=== PATIENT | male | born 1990 | race Caucasian/White ===

== ENCOUNTER 2024-07-03 09:16 | Inpatient (IN) ==
--- NOTE | 2024-07-03 09:39 | Emergency Department Note ---
History of Present Illness General Chief complaint: Foot Injury/Pain Stated complaint: WOUND ON FOOT, SWELLING, INFECTION Time Seen by Provider: 07/03/24 09:37 History of Present Illness Maximum Pain Intensity: 1 This is a 34-year-old male that presents to the emergency department via private vehicle with complaints of "wound on foot, swelling, infection". The patient notes that he has had a wound on the right first toe for several months now and has been following with the wound clinic in [place]. The patient states that however as of recent there has been some increased redness and swelling now in the foot and ankle region. He notes minimal pain, currently 10/09. He notes he is currently on oral clindamycin but finishing the course and today is the last day of the antibiotic. No fevers. There has been some drainage from the wound. Home Medications Medication Instructions Recorded Confirmed Type buprenorphine HCl 8 mg sublingual 16 mg sublingual DAILY 07/03/24 07/03/24 History tablet losartan 25 mg tablet 50 mg PO DAILY 07/03/24 07/03/24 History Allergies Allergy/AdvReac Type Severity Reaction Status Date / Time amoxicillin Allergy Unknown Unverified 07/03/24 12:24 Penicillins Allergy Anaphylaxis Unverified 07/03/24 13:12 Past Med/Surg History Problem List (Updated 07/03/24 @ 23:13 by Andrews Lazaro PA-C) Cellulitis of right foot (Acute) Tobacco use History of substance abuse Cellulitis of left foot Skin ulcer of right great toe (Acute) Medical History Prediabetes Anxiety HTN (hypertension) Surgical History No pertinent past surgical history Family History (Updated 07/03/24 @ 13:09 by Nakia Ludwig PA-C) Mother Breast cancer Social History Smoking Status: Current every day smoker Tobacco Type: Cigarettes Cigarettes Per Day: 1 PPD; Hx Alcohol Use: No Hx Substance Use: No Preferred Language: Slovak Communication Ability: Effective 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 Beliefs That Will Affect Care: None Current Living Situation: Significant Other Feels Safe at Home: Yes Safety Concerns: Feels Safe At This Time Assistive Devices: Glasses Assistive Devices Comment: Glasses but doesn't wear Review of Systems A total of 10 systems reviewed and were otherwise negative Physical Exam Vital Signs Vital Signs - 24 hr 07/03/24 09:29 07/03/24 11:38 Temperature 36.5 C Temperature Source Skin Pulse Rate 98 H Pulse Rate [Finger] 91 H Respiratory Rate 20 18 Respiratory Effort / Characteristics Non-Labored Spontaneous Respiratory Depth Normal Respiratory Pattern Regular Blood Pressure 172/95 H Blood Pressure [Right Arm] 160/89 H Blood Pressure Mean 120 Blood Pressure Mean [Right Arm] 112 Blood Pressure Position [Right Arm] Semi-fowlers Pulse Oximetry 100 98 Oxygen Delivery Method Room Air Room Air Sepsis Recent Fever Within 48 Hours No Sepsis New/Unexplained Change in Mental Status N/A Sepsis Action Taken by Nursing No Action Required VITAL SIGNS - Vital signs and nursing notes were reviewed. Stable and afebrile. GENERAL -34-year-old male appearing his stated age who is in no acute distress. Communicates well with provider and answers questions appropriately. SKIN -the flexor crease at the IP joint of the right first toe, plantar aspect does have a large ulceration approximate 1.5/2 cm in diameter that does track into the deeper soft tissues. There is a yellowish purulence noted. No crepitus. There is then erythema tracking into the toe, right foot, right ankle into the distal right lower leg. HEAD - NC/AT. EYES - Sclera anicteric. NECK - No nuchal rigidity. LUNGS - CTA CARDIAC - RRR EXTREMITIES - No clubbing or peripheral cyanosis. No pretibial edema present. Skin as above. No tenderness to palpation of the right first toe or foot. Capillary refill of all toes of the right foot within normal limits. Right dorsalis pedis pulse within normal limits. No crepitus. +5/5 strength noted in UE/LE bilaterally. NEUROLOGIC -sensory intact to light touch throughout the right lower extremity without deficit. PSYCH -alert, oriented and pleasant on exam. Course Administered Medications Buprenorphine HCl (Buprenorphine Hcl 8 Mg Subl) 8 mg SL BID [facility] Stop: 08/02/24 20:59 Last Admin: 07/03/24 20:59 Dose: 8 mg Documented By: ZULMA Aztreonam 2,000 mg/ Dextrose 100 mls @ 100 mls/hr IV Q8H [facility] Stop: 07/10/24 19:59 Last Infusion: 07/03/24 22:05 Dose: Infused Documented By: Admin: 07/03/24 20:50 Dose: 100 mls/hr Documented By: ZULMA Vancomycin HCl 2,750 mg/ (Sodium Chloride) 555 mls @ 200 mls/hr IV 2200 ONE Stop: 07/04/24 00:46 Last Admin: 07/03/24 22:12 Dose: 200 mls/hr Documented By: ZULMA Metronidazole (Metronidazole 500 Mg Tab) 500 mg PO BID [facility]; Protocol Stop: 07/10/24 20:59 Last Admin: 07/03/24 20:51 Dose: 500 mg Documented By: ZULMA Nicotine (Nicotine 21 Mg/24 Hr Tdsy) 1 patch TD QAM [facility] Stop: 08/02/24 13:59 Last Admin: 07/03/24 14:29 Dose: 1 patch Documented By: MMF Discontinued Medications Gadobutrol (Gadobutrol 65ml Vial) 14 ml IV ONCE ONE Stop: 07/03/24 18:17 Last Admin: 07/03/24 18:17 Dose: 14 ml Documented By: TERRY Daptomycin 700 mg/ Syringe 14 mls @ 7 mls/min IV NOW STA; Protocol Stop: 07/03/24 11:11 Last Admin: 07/03/24 11:40 Dose: 7 mls/min Documented By: REMA Sodium Chloride (Nss) 1,000 mls @ 999 mls/hr IV .Q1H1M ONE Stop: 07/03/24 15:34 Last Admin: 07/03/24 15:07 Dose: 999 mls/hr Documented By: REMA Losartan Potassium (Losartan Potassium 50 Mg Tab) 50 mg PO ONE STA Stop: 07/03/24 14:11 Last Admin: 07/03/24 20:04 Dose: 50 mg Documented By: ZULMA Medical Decision Making Laboratory Data 07/03/24 11:03 07/03/24 11:03 Lab Results 07/03/24 07/03/24 07/03/24 Range/Units 11:03 11:52 12:47 WBC 12.93 H (4.8-10.8) K/ul RBC 4.88 (4.70-6.10) M/uL Hgb 14.7 (14.0-18.0) g/dl Hct 43.4 (42.0-52.0) % MCV 88.9 (80.0-100.0) fL MCH 30.1 (25.0-34.0) pg MCHC 33.9 (32.0-36.0) g/dL RDW Std Deviation 39.0 (36.4-46.3) fL RDW Coeff of Joaquin 12.1 (11.5-14.5) % Plt Count 300 (130-400) K/uL MPV 9.9 (9.4-12.4) fL Immature Gran % (Auto) 0.3 % Neut % (Auto) 71.5 % Lymph % (Auto) 20.6 % [place] % (Auto) 5.1 % Eos % (Auto) 2.3 % Baso % (Auto) 0.2 % Neut # (Auto) 9.23 H (1.40-6.50) K/uL Lymph # (Auto) 2.67 (1.20-3.40) K/uL [place] # (Auto) 0.66 H (0.11-0.59) K/uL Eos # (Auto) 0.30 (0.00-0.50) K/uL Baso # (Auto) 0.03 (0.00-0.20) K/uL Immature Gran # (Auto) 0.04 (0.01-0.20) K/uL ESR 52 H (0-15) mm/hr Sodium 137 (136-145) mmol/L Potassium 4.2 (3.5-5.1) mmol/L Chloride 100 (98-107) mmol/L Carbon Dioxide 30 (21-32) mmol/L Anion Gap 7 (3-11) BUN 13 (6-23) mg/dl Creatinine 0.69 (0.6-1.4) mg/dl Est Cr Clr Drug Dosing 249.0 ml/min eGFR 123.77 BUN/Creatinine Ratio 18.8 (10-20) Glucose 99 (70-99(Fasting)) mg/dl Lactate 1.1 (0.4-2.0) mmol/L Calcium 9.9 (8.6-10.3) mg/dl Total Bilirubin 0.4 (0.2-1.0) mg/dl AST 16 (13-39) U/L ALT 18 (7-52) U/L Alkaline Phosphatase 66 (34-104) U/L C-Reactive Protein 0.79 H (0-0.5) mg/dl Total Protein 8.3 (6.0-8.3) gm/dl Albumin 4.6 (3.4-5.0) gm/dl Globulin 3.7 (2.5-4.0) gm/dl Albumin/Globulin Ratio 1.2 (0.9-2) Procalcitonin Cancelled Cancelled Cancelled Imaging Data Radiologist's Impression: Foot X-Ray 07/03/24 10:15 XR foot RT min 3V routine CLINICAL HISTORY: Right foot infection. COMPARISON: None FINDINGS: A wound along the plantar aspect of the base of the right first distal phalanx is noted. Right first toe soft tissue swelling is present. No clear bony erosion is identified. There are no fractures within the right foot. There are mild degenerative changes within the right first metatarsophalangeal joint. Plantar heel spur is incidentally noted. IMPRESSION: Right first toe plantar wound. No bony erosion to suggest acute osteomyelitis by radiography. If indicated, MRI could be obtained for further evaluation. ACT 112: Negative or not required by law. Electronically signed by: Romario Orr M.D. 07/03/2024 10:46 AM MDM Narrative Patient was seen and evaluated as above in room B06. Review was performed of triage nursing notes and vital signs. I did review the patient's outpatient PCP visit as dated 06/24/2024. Patient presents to us today for evaluation of progressing erythema and edema of the right foot, ankle and right lower leg originating from a wound to the plantar aspect of the right first toe. There is a large ulcer on the plantar aspect of the right first toe. IV access with established. Labs were drawn. I did obtain a wound culture of the right first toe as there is some draining purulence. This was sent for culture. Blood culture also obtained. IV antibiotics ordered. Initially had ordered vancomycin however him working with our clinical pharmacist, noting patient's adjusted body weight and vancomycin dosing daptomycin is felt to be preferred therefore ordered. This was based on patient's ideal body weight. Dosing was confirmed with pharmacist. Additionally, laboratory studies here reveal leukocytosis 12.93. No anemia. No emergent metabolic disturbance. Elevation of the ESR and CRP noted. Procalcitonin was ordered but unfortunately was not able to be resulted. Right foot x-ray obtained and reviewed and per my crepitation no fracture. The patient does require hospitalization noting the progressive infection despite oral antibiotics. Case discussed with the hospitalist service. Please refer to further documentation regarding his stay. After evaluation by the medicine team and pending admission I noted the patient's blood pressure to be 83/65 as documented. I immediately went to bedside. He is resting comfortably. I suspect this value is an accurate therefore did have blood pressure rechecked and patient was not hypotensive. GCS: 15 In the evaluation and treatment of this patient the following differential diagnoses were entertained: Cellulitis, abscess, necrotizing fasciitis, osteomyelitis, sepsis, bacteremia, among others Impression & Plan Cellulitis of right foot, Skin ulcer of right great toe Discharge Plan Visit Data Chief Complaint: Foot Injury/Pain Stated Complaint: WOUND ON FOOT, SWELLING, INFECTION ED Provider: Adam Valdovinos ED Midlevel Provider: Andrews Lazaro Discharge Problem: Cellulitis of right foot, Skin ulcer of right great toe Patient Disposition: Admitted As Inpatient Condition: Good Discharge Instructions Interventions: ED Discharge Assessment Last Done: 07/03/24 17:27
--- NOTE | 2024-07-03 10:47 | XRay Report ---
XR foot RT min 3V routine CLINICAL HISTORY: Right foot infection. COMPARISON: None FINDINGS: A wound along the plantar aspect of the base of the right first distal phalanx is noted. R ight first toe soft tissue swelling is present. No clear bony erosion is identified. There are no fra ctures within the right foot. There are mild degenerative changes within the right first metatarsopha langeal joint. Plantar heel spur is incidentally noted. IMPRESSION: Right first toe plantar wound. No bony erosion to suggest acute osteomyelitis by radiogra phy. If indicated, MRI could be obtained for further evaluation. ACT 112: Negative or not required by law. Electronically signed by: Romario Orr M.D. 07/03/2024 10:46 AM
[2024-07-03] MEDS ORDERED: VANCOMYCIN HCL 2,750 MG in SODIUM CHLORIDE 0.9% 500 ML IV ONE (11:06)
[2024-07-03] MEDS ORDERED: VANCOMYCIN CONSULT ACTIVE PRN ×2 (11:06→19:18)
[2024-07-03 11:34] LABS: Albumin Globulin Ratio 1.2 (0.9-2); Albumin Level 4.6 gm/dl (3.4-5.0); BUN Creatinine Ratio 18.8 (10-20); Bilirubin,Total 0.4 mg/dl (0.2-1.0); C Reactive Protein 0.79 mg/dl (0-0.5); Calcium 9.9 mg/dl (8.6-10.3); Globulin 3.7 gm/dl (2.5-4.0); Potassium 4.2 mmol/L (3.5-5.1); Total Protein 8.3 gm/dl (6.0-8.3)
[2024-07-03] MEDS: DAPTOmycin 700 MG in SYRINGE 0 ML IV STA (11:40)
[2024-07-03 12:42] LABS: Basophils # (auto) 0.03 K/uL (0.00-0.20); Basophils % (auto) 0.2 %; Eosinophils % (auto) 2.3 %; Hematocrit (blood only) 43.4 % (42.0-52.0); Hemoglobin 14.7 g/dl (14.0-18.0); Immature Granulocytes # (auto) 0.04 K/uL (0.01-0.20); Immature Granulocytes % (auto) 0.3 %; Lymphocytes # (auto) 2.67 K/uL (1.20-3.40); Lymphocytes % (auto) 20.6 %; Mean Corpuscular Hemoglobin 30.1 pg (25.0-34.0); Mean Corpuscular Hgb Conc 33.9 g/dL (32.0-36.0); Mean Corpuscular Volume 88.9 fL (80.0-100.0); Mean Platelet Volume 9.9 fL (9.4-12.4); Monocytes # (auto) 0.66 K/uL (0.11-0.59); Monocytes % (auto) 5.1 %; Neutrophils # (auto) 9.23 K/uL (1.40-6.50); Neutrophils % (auto) 71.5 %; Platelet Count 300 K/uL (130-400); RDW Coefficient of Variation 12.1 % (11.5-14.5); Red Blood Count 4.88 M/uL (4.70-6.10); White Blood Count 12.93 K/ul (4.8-10.8)
--- NOTE | 2024-07-03 13:15 | History & Physical Report ---
Date of Service July 03, 2024 Assessment & Plan (1) Skin ulcer of right great toe: (2) Cellulitis of right foot: Plan: Patient is a 34 year old male with PMH HTN, anxiety, obesity, prediabetes, tobacco use presented to ER with c/o worsening right foot and leg redness and edema with right great toe ulcer. Wound present for months and following outpatient wound and getting debridement. 06/24/2024 started on clindamycin secondary to foot swelling and redness Today in ER afebrile, BP 172/95, P: 98, R: 20, 100% on room air. WBC: 12.9, ESR: 52 Right foot x-ray: No bony erosion noted In ER given daptomycin Concern for underlying osteomyelitis Obtain MRI R foot/toe to r/o osteomyelitis Wound culture pending Blood culture pending Given patients history PCN allergy with anaphylaxis will start aztreonam, vancomycin and flagyl Pain control with Tylenol for now. Will avoid narcotic pain medications with h/o substance abuse in past Wound nurse consult May need to consider ID consult CBC, BMP in am (3) Anxiety: Plan: Previously Prescribed clonidine to use on a as needed basis for anxiety. Patient reports is never taken Recently prescribed Wellbutrin however has not started taking yet (4) HTN (hypertension): Plan: In ER hypertensive with BP 160/89. Patient typically takes his medication in afternoon when he awakes as he works third shift Give patient home losartan now and continue daily (5) Prediabetes: Plan: A1c: 5.9 on 12/30/23 Not on medications Diabetic diet Follow a.m. 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 Plan Attending Addendum: Case reviewed with the advanced practitioner. I have personally performed a history and physical examination on the patient. I have reviewed the advanced practitioner's documentation on the date of service referenced in note, and I agree with, and take responsibility for the plan of care. please refer to her notes for full details patient seen and examined, records reviewed by myself as well on exam, patient seen resting in bed, comfortable pain on the left foot and lower leg manageable no other symptoms VS noted and reviewed oriented x 3 , not in distress, speaks in sentences with no effort nor accessory muscle use normal rate, regular rhythm, no murmurs clear breath sounds bilaterally non distended, soft, nontender R big toe dressing in place: no bleeding or discharge (+) moderate erythema, mild edema of the foot and lower leg no neuro deficits all labs, imaging noted and reviewed ASSESSMENT AND PLAN> INFECTED ULCER, R BIG TOE WITH OSTEOMYELITIS Foot MRI: Ulcer subjacent to the first IP joint. Acute osteomyelitis of the first distal phalanx and reactive osteitis in the first proximal phalanx. ff up cultures Vancomycin + Aztreonam + Flagyl (anaphylaxis with penicillin) ID consulted Podiatry consulted other diagnoses and plan of care as per advanced practitioner's notes Germán Burr MD History of Present Illness Chief Complaint: Right foot redness and edema Primary Care Provider: Nichole Gonzales PA-C Patient is a 34 year old male with PMH HTN, anxiety, obesity, prediabetes, tobacco use presented to ER with c/o right foot redness and edema. History obtained from patient and outpatient chart review. Patient reports had bilateral great toe callus for months and has been following with [facility] wound care and having areas debrided. Patient reports right great toe had small opening which has progressed to ulcer. Per outpatient chart review last seen by wound care on 06/17/2024 and had wounds debrided. X-ray at time was without evidence of osteomyelitis and MRI of right foot was ordered to rule out osteomyelitis however has not been completed yet. Patient seen PCPs office 06/24/2024 for redness to right toe and foot and was started on clindamycin 300 mg 3 times daily x 10 days. Patient reports that this week has had increased edema to right foot and right leg along with redness extending to right calf. Reports area is tender with walking. Works third shift and states is on his feet often. He thinks a couple of weeks ago may have had a fever but denies any fever or chills symptoms the past week. Denies diaphoresis, N/V/D/C, FOSTER, dizziness, syncope, CP, SOB, palpitations, cough, sore throat, rhinorrhea, abdominal pain, paresthesias, weakness, extremity edema, rashes, urinary symptoms. Allergies Allergy/AdvReac Type Severity Reaction Status Date / Time amoxicillin Allergy Unknown Unverified 07/03/24 12:24 Penicillins Allergy Anaphylaxis Unverified 07/03/24 13:12 Home Medications Medication Instructions Recorded Confirmed Type buprenorphine HCl 8 mg sublingual 16 mg sublingual DAILY 07/03/24 07/03/24 History tablet losartan 25 mg tablet 50 mg PO DAILY 07/03/24 07/03/24 History Past Med/Surg History Problem List (Updated 07/03/24 @ 20:59 by Nakia Ludwig PA-C) Cellulitis of right foot Tobacco use History of substance abuse Cellulitis of left foot Skin ulcer of right great toe Medical History (Updated 07/03/24 @ 20:59 by Nakia Ludwig PA-C) Prediabetes Anxiety HTN (hypertension) Surgical History (Updated 07/03/24 @ 13:11 by Nakia Ludwig PA-C) No pertinent past surgical history Family History (Updated 07/03/24 @ 13:09 by Nakia Ludwig PA-C) Mother Breast cancer Social History (Updated 07/03/24 @ 14:29 by Nakia Ludwig PA-C) Smoking Status: Current every day smoker Tobacco Type: Cigarettes Cigarettes Per Day: 1 PPD; Hx Alcohol Use: No Hx Substance Use: No Preferred Language: Greek Communication Ability: Effective 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 Beliefs That Will Affect Care: None Current Living Situation: Significant Other Feels Safe at Home: Yes Safety Concerns: Feels Safe At This Time Assistive Devices: Glasses Assistive Devices Comment: Glasses but doesn't wear Review of Systems Review of Systems: All systems reviewed & are unremarkable except as noted in HPI & below Physical Exam Physical Exam: General: no distress, WDWN Head: normocephalic, atraumatic Eyes: conjunctiva non-injected, anicteric ENT: normal inspection external ears, nose, mucous membranes moist Neck: supple, trachea midline Lungs: clear, no respiratory distress, no wheezing/rhonchi/rales CV: RRR, no murmur Abd: normal BS, soft, non-tender Ext: no cyanosis, no calf tenderness; RLE: +edema and erythema to lower leg and foot, great right toe plantar surface with deep ulcer Neuro: A&O x 3, no focal deficits noted, normal affect Skin: warm, dry Results & Data Results & Data Vital Signs (Past 12 Hours) Vital Signs Temp Pulse Pulse Resp BP BP Pulse Ox 07/03/24 11:38 91 H 18 160/89 H 98 07/03/24 09:29 36.5 C 98 H 20 172/95 H 100 O2 Del Method 07/03/24 11:38 Room Air 07/03/24 09:29 Room Air Laboratory Results Short CBC 07/03/24 Range/Units 11:03 WBC 12.93 H (4.8-10.8) K/ul Hgb 14.7 (14.0-18.0) g/dl Hct 43.4 (42.0-52.0) % Plt Count 300 (130-400) K/uL BMP 07/03/24 11:03 Sodium 137 Potassium 4.2 Chloride 100 Carbon Dioxide 30 BUN 13 Creatinine 0.69 Glucose 99 Calcium 9.9 Liver Function 07/03/24 Range/Units 11:03 Total Bilirubin 0.4 (0.2-1.0) mg/dl AST 16 (13-39) U/L ALT 18 (7-52) U/L Alkaline Phosphatase 66 (34-104) U/L Albumin 4.6 (3.4-5.0) gm/dl Diagnostic Findings Foot X-Ray 07/03/24 10:15 XR foot RT min 3V routine CLINICAL HISTORY: Right foot infection. COMPARISON: None FINDINGS: A wound along the plantar aspect of the base of the right first distal phalanx is noted. Right first toe soft tissue swelling is present. No clear bony erosion is identified. There are no fractures within the right foot. There are mild degenerative changes within the right first metatarsophalangeal joint. Plantar heel spur is incidentally noted. IMPRESSION: Right first toe plantar wound. No bony erosion to suggest acute osteomyelitis by radiography. If indicated, MRI could be obtained for further evaluation. ACT 112: Negative or not required by law. Electronically signed by: Romario Orr M.D. 07/03/2024 10:46 AM
[2024-07-03] MEDS: NICOTINE 21 MG/24 HR TDSY TD SCH (14:29)
[2024-07-03] MEDS: SODIUM CHLORIDE 0.9% 1,000 ML IV ONE (15:07)
[2024-07-03] MEDS: GADOBUTROL 65ML VIAL IV ONE (18:17)
[2024-07-03] MEDS ORDERED: ACETAMINOPHEN 325 MG TAB PO PRN (19:18)
[2024-07-03] MEDS ORDERED: POLYETHYLENE (MIRALAX) 17 GM PACK PO PRN (19:18)
[2024-07-03] MEDS ORDERED: ONDANSETRON INJ 2 MG/ML 2 ML VIAL IV PRN (19:18)
[2024-07-03] MEDS: LOSARTAN POTASSIUM 50 MG TAB PO STA (20:04)
[2024-07-03] MEDS: AZTREONAM 2,000 MG in DEXTROSE 5% MINI-B 100 ML IV SCH (20:50)
[2024-07-03] MEDS: metroNIDAZOLE 500 MG TAB PO SCH (20:51)
[2024-07-03] MEDS: buprenorphine HCL 8 MG SUBL SL SCH (20:59)
--- NOTE | 2024-07-03 21:17 | Magnetic Resonance Report ---
Exam(s): MRI RIGHT FOOT W/WO Contrast IV Amt: 14mL Gadavist given existing IV EXAM: MR Right Lower Extremity Without and With Intravenous Contrast, Foot CLINICAL HISTORY: Reason for exam: Right great toe ulcer r/o osteomyelitis. TECHNIQUE: Multiplanar magnetic resonance images of the right foot without and with intravenous contrast. CONTRAST: Patient received 14mL Gadavist given existing IV of IV contrast COMPARISON: No relevant prior studies available. FINDINGS: Ulcer subjacent to the first IP joint. Abnormal marrow signal within the first proximal and distal phalanges. Marrow fat is preserved within the proximal phalanx but suppressed in the distal phalanx. 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 Soft tissue cellulitis. No soft tissue abscess. IMPRESSION: 1. Ulcer subjacent to the first IP joint. Acute osteomyelitis of the first distal phalanx and reactive osteitis in the first proximal phalanx. Electronically signed by: Blaine Paredes MD 07/03/24 21:16 PM
[2024-07-03] MEDS: VANCOMYCIN HCL 2,750 MG in SODIUM CHLORIDE 0.9% 500 ML IV ONE (22:12)
[2024-07-03] MEDS: SODIUM CHLORIDE 0.9% 1,000 ML IV SCH (23:05)
--- OUTSIDE RECORDS SUMMARY | 2024-07-04 04:04 | External Medical Summary | Summary of Care ---
Author Name Unknown Organization [facility] Address [address] [place] [address] Phone [phone] Care Team Providers Care Fitter/Welder Name Role Phone Nichole Gonzales PA-C Primary Care Provider [phone] Reason for Visit * Reason Comments Follow Up Follow Up: B/L Great toes Encounter Details Date Type Department Care Team ([facility] st Contact Info) Description 05/27/2024 8:40 AM EDT Office Visit Wound Care, [facility] [address] [place] [address] Vinita Bee, [facility] [address] [place] [address] Pressure injury of toe of left foot, stage 1*; Pressure injury of toe of right foot, stage 1 Allergies Active Allergy Reactions Criticality Noted Date Comments Naloxone Edema Other,Itching,Rash High 04/14/2021 Penicillins Anaphylaxis High 02/02/2013 anaphylactic Shellfish-Derived Products Edema airway High 04/14/2021 All seafood documented as of this encounter (statuses as of 05/27/2024) Medications Medication Sig Dispensed Refills Start Date End Date Status Buprenorphine HCl 8 MG Sublingual Tablet Sublingual (Subutex) TAKE 1 SUBLINGUAL TABLET TWICE DAILY 03/28/2021 Active Albuterol Sulfate HFA 108 (90 Base) MCG/ACT Inhalation Aerosol SolutionIndications: Asthma, unspecified asthma severity, unspecified whether complicated, unspecified whether persistent INHALE 2 PUFFS BY MOUTH IN THE MORNING, AT NOON, IN THE EVENING, AND BEFORE BEDTIME. 54 g 3 06/08/2022 Active Triamcinolone Acetonide 0.1 % External Cream (Aristocort)Indicati ons:Atopic dermatitis, unspecified type Apply topically to affected area 2 times a day. To affected area. 45 g 2 12/12/2023 Active Lactulose 10 GM/15ML Oral Solution (Constulose)Indicati ons:Constipation, unspecified constipation type TAKE 30 ML BY MOUTH IN THE MORNING AND 30 ML BEFORE BEDTIME. 946 mL 1 04/28/2024 Active Losartan Potassium 25 MG Oral Tablet (Cozaar)Indications: Hypertension goal BP (blood pressure) < 140/90 TAKE 2 TABLETS BY MOUTH EVERY MORNING 180 Tablet 3 05/13/2024 Active Polyethylene Glycol 3350 17 GM/SCOOP Oral Powder (MiraLax)Indications :Constipation, unspecified constipation type Take 17 g by mouth in the morning and 17 g before bedtime. Dissolve one heaping tablespoon in 8 ounces of water or juice.. 850 g 5 05/13/2024 Active Albuterol Sulfate (2.5 MG/3ML) 0.083% Inhalation Nebulization Solution (Proventil) Inhale 1 Vial via nebulizer every 6 hours as needed for Wheezing. 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 with unspecified severity 12/12/2023 Callus 12/12/2023 Hypertension goal BP (blood pressure) < 140/90 0 05/22/2023 Mild intermittent asthma without complication Advance directive discussed with patient 021 History of anxiety disorder 02/23/2021 Class 1 obesity without seri ous comorbidity with body mass index (BMI) of 34.0 to 34.9 in adult 02/07/2021 Overview: Per Obesity protocol Spinal stenosis of lumbar region with radiculopa thy 02/02/2013 documented as of this encounter (statuses as of 05/27/2024) Resolved Problems Problem Noted Date Diagnosed Date Resolved Date Food insecurity 11/12/2022 05/14/2024 Overview: Per [facility] Protocol Dental infection 03/18/2022 05/22/2023 Morbid obesity due to excess calories 02/23/2021 12/12/2023 Uncomplicated opioid dependence 02/23/2021 03/26/2022 PTSD (post-traumatic stress disorder) 02/23/2021 03/26/2022 documented as of this encounter (statuses as of 05/27/2024) Social History Tobacco Use Types Packs/Day Years Used Date Smoking Tobacco: Every Day Cigarettes Smokeless Tobacco: Never Alcohol Use Standard Drinks/Week Comments No 0 (1 standard drink = 0.6 oz pur e alcohol) PHQ-2 Answer Date Recorded PHQ Adult Total Score 2 10/09/2022 Hunger Vital Sign Answer Date Recorded Within the past 12 months, y ou worried that your food would run out before you got the money to buy more. Sometimes true Within the past 12 months, t he food you bought just didn't last and you didn't have money to get more. Sometimes true Sex and Gender Information Value Date Recorded Sex Assigned at Male 10/09/2022 3:45 PM EST Gender Identity Male 10/09/2022 3:45 PM EST Sexual Orientation Straight 10/09/2022 3: 45 PM EST Job Start Date Occupation Industry Not on file Not on file Not on file documented as of this encounter Progress Notes * Vinita Bee, DPM - 05/27/2024 9:07 AM EDT Followup Examination Patient: Wesley Moise Allergies: Naloxone, Penicillins, and Shellfish-derived products Chief Complaint: Chief Complaint Patient presents with Follow Up Follow Up: B/L Great toes History of Present Illness Wesley Moise is a 34 year old male here today for Corina great toes. Pt reports he recently got a new job that he will start on Saturday. He is still working at the [employer] (walking and carrying). He reports more pain over the right great toe. Denies any consitutional symptoms. Constitutional There were no vitals taken for this visit. Appearance: NAD Musculoskeletal Normal general appearance No joint swelling/tenderness Normal gait Walks without assistance Vascular Dorsalis Pedis Palpable Posterior Tibial Palpable Respiratory Respiratory effort within normal limits Integumentary warm & dry Abnormalities: See wound assessment Psychiatric Judgment/insight intact mood/affect within normal limits Neurological No focal weakness Past Medical History No past medical history on file. Past Surgical History No past surgical history on file. Social History Social History Socioeconomic History Marital status: Single Spouse name: Not on file Number of children: Not on file Years of education: Not on file Highest education level: Not on file Occupational History Not on file Tobacco Use Smoking status: Every Day Current packs/day: 1.00 Types: Cigarettes Smokeless tobacco: Never Vaping Use Vaping status: Every Day Substances: THC Substance and Sexual Activity Alcohol use: No Drug use: Yes Types: Marijuana Comment: medical marijuana Sexual activity: Not on file Other Topics Concern Not on file Social History Narrative Not on file Social Determinants of Health Financial Resource Strain: Low Risk (04/27/2024) Financial Resource Strain Do you have any trouble paying for your medications, or do you think you might in the future? (Adult - for ages 18 years and over): No Does your family have trouble paying for medicine? (Household - for ages 0-17 years): Not on file Food Insecurity: No Food Insecurity (04/27/2024) Food Insecurity Do you need food for this week? (Adult - for ages 18 years and over): No Are you able to get enough food for your family? (Household - for ages 0-17 years): Not on file Does your family need food this week? (Household - for ages 0-17 years): Not on file Do you always have enough food for your family? (Household - for ages 0-17 years): Not on file Transportation Needs: No Transportation Needs (04/27/2024) Transportation Needs Do you have trouble getting a ride to medical visits or work? (Adult - for ages 18 years and over):Not on file Does your family have a hard time getting a ride to doctors visits? (Household - for ages 0-17 years): Not on file Has lack of transportation kept you from medical appointments, meetings, work, or from getting things needed for daily living? Check all that apply. (Adult - for ages 18 years and over): No Do you (or your family) have trouble finding or paying for a ride (transportation)? (Household - for ages 0-17 years): Not on file Social Connections: Socially Integrated (04/27/2024) Social Connections How often do you feel lonely or isolated from those around you? (Adult - for ages 18 years and over): Rarely Housing Stability: Low Risk (04/27/2024) Housing Stability Do you currently live in a long-term or have no steady place to sleep at night? (Adult - for ages 18 years and over): No Do you think you are at risk of becoming homeless? (Adult - for ages 18 years and over): Not on file Does your family worry about paying for your home or becoming homeless? (Household - for ages 0-17 years): Not on file Are you homeless or worried that you might be in the future? (Adult - for ages 18 years and over): No Are you (or your family) homeless or worried that you might be in the future? (Household - for ages0-17 years): Not on file Current Meds Current Outpatient Medications Medication Sig Dispense Refill Buprenorphine HCl 8 MG Sublingual Tablet Sublingual (Subutex) TAKE 1 SUBLINGUAL TABLET TWICE DAILY Albuterol Sulfate HFA 108 (90 Base) MCG/ACT Inhalation Aerosol Solution INHALE 2 PUFFS BY MOUTH IN THE MORNING, AT NOON, IN THE EVENING, AND BEFORE BEDTIME. 54 g 3 Triamcinolone Acetonide 0.1 % External Cream (Aristocort) Apply topically to affected area 2 times a day. To affected area. 45 g 2 Lactulose 10 GM/15ML Oral Solution (Constulose) TAKE 30 ML BY MOUTH IN THE MORNING AND 30 ML BEFOREBEDTIME. 946 mL 1 Losartan Potassium 25 MG Oral Tablet (Cozaar) TAKE 2 TABLETS BY MOUTH EVERY MORNING 180 Tablet 3 Polyethylene Glycol 3350 17 GM/SCOOP Oral Powder (MiraLax) Take 17 g by mouth in the morning and 17g before bedtime. Dissolve one heaping tablespoon in 8 ounces of water or juice.. 850 g 5 Albuterol Sulfate (2.5 MG/3ML) 0.083% Inhalation Nebulization Solution (Proventil) Inhale 1 Vial via nebulizer every 6 hours as needed for Wheezing. 360 mL 11 No current facility-administered medications for this visit. WOUND ASSESSMENT Wound Grade/Stage/Type (if changed): Wound/Ulcer Etiology: Pressure Ulcer: I Alteration in Skin Integrity Anterior;Right Toe (Active) Alteration in Skin Integrity Anterior;Left Toe (Active) Wound Profile Wound Type: Pressure Ulcer (17) Wound Location: Corina hallux Pressure Wound: Stage I Diabetic Wound/Lower Extremity: N/A All Others: N/A Wound/Ulcer Debridement Time Out: Correct Patient, Correct Site/Side/Position, Correct Procedure, Complete/Current Consent and Safety Issue Review Wound location: RIGHT and LEFT hallux Character of Wound/Ulcer Pre Debridement: New Lidocaine: none Indication for Debridement: Abnormal Wound Edge, Abnormal Wound Base, and Slough, Exudate Instrument Used: Scalpel Tissue and/or Material Removed: Callus, Skin, and Abnormal Edge Bleeding: Minimal Bleeding Controlled with: Pressure Specimen Taken: None Type of Debridement: Excisional: Subcutaneous Tissue Level of Debridement: Skin Epidermis, Skin Dermis, and Subcutaneous Tissue Negative Pressure Wound Vacuum: No Bioengineered Tissue/Dermal Substrate Applied: No Character of Wound/Ulcer Post Debridement: Improved Total Post Debridement Measurement: Length 1.6 Width 1.4 Depth 0.1 cm Total cm2 15.75 (RIGHT) and (LEFT) Length 1X0.7X0.1 Procedure Tolerated: Yes Non OR time Out: Time out was initiated under direction and supervision of provider Cristal. Correct patient identity - Yes Correct side and site - Yes Procedure matches verbalized consent -Yes Correct patient position - Yes Availability of correct implants and any special equipment or special requirements - N/A Time out occurred prior to procedure start - Yes Prophylactic antibiotic timing confirmed - N/A Assessment/Plan: (L84) Callus (primary encounter diagnosis) (L89.891) Pressure injury of toe of left foot, stage 1 (L89.891) Pressure injury of toe of right foot, stage 1 - Pt seen and evaluated - Wounds debrided to healthy bleeding tissue - Xrays ordered for today. - I did reiterate to the pt that these are caused by pressure - I am worried about the right hallux wound- it is deeper with necrotic tissue noted - Discussed possible bone infection including IV abx vs toe amputation. - For now- betadine and dsd - Follow up in 1 week Vinita Bee DPM 05/27/2024 documented in this encounter Nursing Notes * Jennifer Portillo CMA - 05/27/2024 9:46 AM EDT Treatment done as ordered by Dr. Bee Patient was unable to tolerate silicone sleeve Betadine to wound, wrapped with 3 inch conform and secured with Transpore white * Jennifer Portillo CMA - 05/27/2024 8:49 AM EDT Images from the original note were not included. Chief Complaint Patient presents with Follow Up Follow Up: B/L Great toes Patient was instructed to not get up on the exam table/exam chair until directed and assisted by their provider; patient is to remain seated in the chair/ wheelchair/ exam table/ exam chair for fall prevention and safety reasons. Patient is aware to have assistance to step down off exam table/exam chair with personnel. Patient voiced full comprehension of instructions. B/LLE shoes and socks removed No dressings currently on to remove Wounds then legs and feet washed with soap and water and towel dried. Patient tolerated well Dr. Bee came in to see patient directly after cleaning - post debridement pictures will be taken Post Debridement pictures documented in this encounter Plan of Treatment Upcoming Encounters Date Type Department Care Team (Late st Contact Info) Description 06/15/2024 12:40 PM EDT [facility] [phone] Nichole Gonzales PA-C [facility] [phone] 06/17/2024 10:00 AM EDT Office Visit [facility], [facility] [address] [facility] [phone] [facility] Bee DPM [address] [facility] [address] 06/24/2024 3:20 PM EDT Nurse Only Ancillary 1st Floor, [place] [address] [address] Bhumika, Nurse Paulo [address] [address] Pending Results Name Type Priority Associated Diagnoses Date /Time XR FOOT 3 OR MORE VIEWS Medical Imaging Routine Pressure injury of toe of left foot, stage 1 Pressure injury of toe of right foot, stage 1 05/27/2024 10:00 AM EDT Health Maintenance Due Date Last Done Comments DISCUSS TOBACCO CESSATION (REFER TO SMARTSET #6099) 1989 Pneumococcal Vaccine: Pediatrics (0 to 5 Years) and At-Risk Patients (6 to 64 Years) (1 of 2 - PCV) 1995 DTap/Tdap Vaccines (1 - Tdap) 2008 Hepatitis B Vaccine (1 of 3 - 19+ 3-dose series) 2008 *SPIROMETRY ONCE FOR ASTHMA-ADULT 08/23/2022 COVID-19 Vaccine ( - season) 2023 Influenza Vaccine (FLU shot) (#1) 2024 HbA1c 12/29/2024 12/30/2023, 03/23/2022 Depression Screening 04/27/2025 04/27/2024 GFR 05/20/2025 05/20/2024, 08/0 05/2024, 12/30/2023, Additional history exists Albumin/Creatinine Ratio 12/29/2026 12/30/2023 HPV (Gardasil) Vaccine Aged Out No lo nger eligible based on patient's age to complete this topic MENINGOCOCCAL (MENACTRA/MENVEO) Aged Out No longer eligible based on patient's age to complete this topic documented as of this encounter Medical Devices Not on filedocumented as of this encounter Visit Diagnoses Diagnosis Pressure injury of toe of left foot, stage 1- Primary Pressure injury of toe of right foot, stage 1 documented in this encounter Care Teams Fitter/Welder Relationship Specialty Start Date End Date Nichole Gonzales PA-C [address] [address] PCP - General Physician Power Brake Operator 05/22/23 documented as of this encounter
--- OUTSIDE RECORDS SUMMARY | 2024-07-04 04:04 | External Medical Summary | Summary of Care ---
Author Name Unknown Organization [facility] Address [address] [place] [address] Phone [phone] Care Team Providers Care Sales Enablement Lead Name Role Phone Nichole Gonzales PA-C Primary Care Provider [phone] Reason for Visit * Reason Comments Follow Up Follow Up: B/L Great toes Encounter Details Date Type Department Care Team ([facility] st Contact Info) Description 05/27/2024 8:40 AM EDT Office Visit Wound Care, [facility] [address] [place] [address] Vinita Bee, [facility] [address] [place] [address] Pressure injury of toe of left foot, [...] Stability Do you currently live in a long term or have no steady place to sleep [...] Description 06/15/2024 12:40 PM EDT Office [facility] [phone] Nichole Gonzales PA-C [facility] [place] [phone] 06/17/2024 10:00 AM EDT Office Visit [facility] Care, [facility] [address] [facility] [address] [facility] DPM [address] [facility] [phone] 06/24/2024 3:20 PM EDT Nurse Only Ancillary 1st Floor, [place] [address] [address] Bhumika, Nurse Paulo [...] Comments DISCUSS TOBACCO CESSATION (REFER TO SMARTSET #[id number]) 1989 Pneumococcal Vaccine: Pediatrics (0 to 5 [...] 1 documented in this encounter Care Teams Sales Enablement Lead Relationship Specialty Start Date End Date Nichole Gonzales PA-C [address] [address] PCP - General Physician Residential Monitor 05/22/23 documented as of this encounter
--- OUTSIDE RECORDS SUMMARY | 2024-07-04 04:04 | External Medical Summary | Summary of Care ---
Author Name Unknown Organization [facility] Address [address] [place] [address] Phone [phone] Care Team Providers Care Car Jockey Name Role Phone Nichole Gonzales PA-C Primary Care Provider [phone] Reason for Visit * Reason Comments Follow Up Follow Up: B/L Great toes Encounter Details Date Type Department Care Team ([facility] st Contact Info) Description 05/27/2024 8:40 AM EDT Office Visit Wound Care, [facility] [address] [place] [address] Vinita Bee, [facility] [address] [place] [address] Pressure injury of toe of left foot, stage 1*; Pressure injury of toe of right foot, stage 1 Allergies Active Allergy Reactions Criticality Noted Date Comments Naloxone Edema Other,Itching,Rash High 04/14/2021 Penicillins Anaphylaxis High 02/02/2013 anaphylactic Shellfish-Derived Products Edema airway High 04/14/2021 All seafood documented as of this encounter (statuses as of 05/28/2024) Medications Medication Sig Dispensed Refills Start Date [...] as of this encounter (statuses as of 05/28/2024) Active Problems Problem Noted Date Diagnosed Date [...] as of this encounter (statuses as of 05/28/2024) Resolved Problems Problem Noted Date Diagnosed Date Resolved Date Food insecurity 11/12/2022 05/14/2024 Overview: Per [facility] Protocol Dental infection 03/18/2022 05/22/2023 Morbid obesity due to excess calories 02/23/2021 12/12/2023 Uncomplicated opioid dependence 02/23/2021 03/26/2022 PTSD (post-traumatic stress disorder) 02/23/2021 03/26/2022 documented as of this encounter (statuses as of 05/28/2024) Social History Tobacco Use Types Packs/Day Years [...] Stability Do you currently live in a senior care or have no steady place to sleep [...] Description 06/15/2024 12:40 PM EDT [facility] [phone] Nichole Gonzales PA-C [facility] [id number] 06/17/2024 10:00 AM EDT Office Visit Wound [facility], [facility] [address] [facility] [place] [address] [facility] Bee DPM [address] [facility] [phone] 06/24/2024 3:20 PM EDT Nurse Only Ancillary 1st Floor, [place] [address] [address] Bhumika, Nurse Paulo [...] Comments DISCUSS TOBACCO CESSATION (REFER TO SMARTSET #[id number]) 1989 Pneumococcal Vaccine: Pediatrics (0 to 5 [...] 1 documented in this encounter Care Teams Car Jockey Relationship Specialty Start Date End Date Nichole Gonzales PA-C [address] [address] PCP - General Physician Car Greaser 05/22/23 documented as of this encounter
--- OUTSIDE RECORDS SUMMARY | 2024-07-04 04:04 | External Medical Summary | Summary of Care ---
Author Name Unknown Organization [facility] Address [address] [place] [place] [address] Phone [phone] Care Team Providers Care Equipment Operator Intermodal Yard Name Role Phone Nichole Gonzales PA-C Primary Care Provider [phone] Reason for Visit * Reason Onset Date Comments Advice 05/25/2024 Encounter Details Date Type Department Care Team ([facility] st Contact Info) Description 05/25/2024 [facility] [place] [phone] Nichole Gonzales PA-C [facility] [place] [address] Advice Allergies Active Allergy Reactions Criticality Noted Date [...] HFA 108 (90 Base) MCG/ACT Inhalation Aerosol SolutionIndications :Asthma, unspecified asthma severity, unspecified whether complicated, unspecified whether persistent INHALE 2 PUFFS BY MOUTH IN THE MORNING, AT NOON, IN THE EVENING, AND BEFORE BEDTIME. 54 g 3 06/08/2022 Active Triamcinolone Acetonide 0.1 % External Cream (Aristocort)Indicat ions:Atopic dermatitis, unspecified type Apply topically to affected area 2 times a day. To affected area. 45 g 2 12/12/2023 Active Lactulose 10 GM/15ML Oral Solution (Constulose)Indicat ions:Constipation, unspecified constipation type TAKE 30 ML BY MOUTH IN THE MORNING AND 30 ML BEFORE BEDTIME. 946 mL 1 04/28/2024 Active Losartan Potassium 25 MG Oral Tablet (Cozaar)Indications :Hypertension goal BP (blood pressure) < 140/90 TAKE 2 TABLETS BY MOUTH EVERY MORNING 180 Tablet 3 05/13/2024 Active Polyethylene Glycol 3350 17 GM/SCOOP Oral Powder (MiraLax)Indication s:Constipation, unspecified constipation type Take 17 g by mouth in the morning and 17 g before bedtime. Dissolve one heaping tablespoon in 8 ounces of water or juice.. 850 g 5 05/13/2024 Active Albuterol Sulfate (2.5 MG/3ML) 0.083% Inhalation Nebulization Solution (Proventil) Inhale 1 Vial via nebulizer every 6 hours as needed for Wheezing. 360 mL 11 05/20/2024 Active predniSONE 50 MG Oral Tablet (Deltasone) Take 1 Tablet by mouth in the morning for 5 days. 5 Tablet 05/20/2024 05/25/2024 documented as of this encounter (statuses as [...] on file documented as of this encounter Miscellaneous Notes * Telephone Encounter - Gill Wagner, [facility] - 05/25/2024 12:04 PM EDT Reviewed med list, advised no drug-drug interactions. Advised prednisone may affect his blood pressure. Does not have a cuff at home, advised he can monitor at local pharmacy if able. Pt has taken a steroid before, but not ever a dose this high. Pt requesting provider review ED notes and dosing to advise if agreeable to therapy. BP Readings from Last 5 Encounters: 05/20/24 153/92 05/13/24 102/68 05/08/24 156/91 04/27/24 108/66 01/03/24 160/74 Thank you, Gill Wagner, PharmD, LAUREL Clinical Pharmacist [facility] 05/25/24 12:07 PM [phone] * Telephone Encounter - Sveta Wiggins CPhT - 05/25/2024 11:55 AM EDT Lucina WOLFE scheduling has pt on the line with her and he wants to know if he is able to take his current medications while on Prednisone, warm transferred to [facility] Gill for further assistance. Thank you, Sveta Wiggins CPhT Lead Software Developer II [facility] ([facility]) 05/25/2024,11:57 AM documented in this encounter Plan of Treatment Upcoming Encounters Date Type Department Care Team (Late st Contact Info) Description 06/15/2024 12:40 PM EDT Office Visit Family [facility], [place] [address] [place] [phone] Nichole Gonzales PA-C 21 [facility] [place] [address] 06/17/2024 10:00 AM EDT Office Visit W[facility], [facility] [address] V[place]a Bee, DOMINIC [facility] [address] 06/24/2024 3:20 PM EDT Nurse Only Ancillary 1st Floor, [place] [address] [phone] Nurse Paulo [place] 21 [address] [id number] Health Maintenance Due Date Last Done Comments DISCUSS TOBACCO CESSATION (REFER TO SMARTSET #2959) 1989 Pneumococcal Vaccine: Pediatrics (0 to 5 Years) and At-Risk Patients (6 to 64 Years) (1 of 2 - PCV) 1995 DTap/Tdap Vaccines (1 - Tdap) 2008 Hepatitis B Vaccine (1 of 3 - 19+ 3-dose series) 2008 *SPIROMETRY ONCE FOR ASTHMA-ADULT 08/23/2022 COVID-19 Vaccine (1 - 2022- season) 2023 Influenza Vaccine (FLU shot) (#1) [...] Not on filedocumented as of this encounter Care Teams Equipment Operator Intermodal Yard Relationship Specialty Start Date End Date Nichole Gonzales PA-C 21 [facility] [place] [place] [phone] PCP - General Physician Horticultural Worker 05/22/23 documented as of this encounter
--- OUTSIDE RECORDS SUMMARY | 2024-07-04 04:04 | External Medical Summary | Summary of Care ---
Author Name Unknown Organization [facility] Address [address] [place] [address] Phone [phone] Care Team Providers Care Printed Circuit Boards Plasma Etcher Name Role Phone Nichole Gonzales PA-C Primary Care Provider [phone] Reason for Visit * Reason Comments Follow Up 6 mo ret-C/O swellin g in R lower leg and foot-bottom of leg is red and warm to touch-has a hole on bottom of R great toe Has MRI scheduled for Saturday for possible infection in bone-is requesting an antibiotic Would like area on R upper leg to be looked at to see if it is a varicose veinPatient has been verbally educated on the need or importance of Tdap Vaccine and has declined topic(s). Encounter Details Date Type Department Care Team ([facility] Contact Info) Description 06/24/2024 1:00 PM EDT Office Visit [facility] [address] [place] [phone] Nichole Gonzales PA-C 21 [facility] [place], [place] [phone] Cellulitis of right lower extremity*; KYLAH (generalized anxiety disorder); Constipation, unspecified constipation type; Atopic dermatitis, unspecified type Allergies Active Allergy Reactions Criticality Noted Date Comments Naloxone Edema Other,Itching,Rash High 04/14/2021 Penicillins Anaphylaxis High 02/02/2013 anaphylactic Shellfish-Derived Products Edema airway High 04/14/2021 All seafood documented as of this encounter (statuses as of 06/24/2024) Medications Medication Sig Dispensed Refills Start Date End Date Status Buprenorphine HCl 8 MG Sublingual Tablet Sublingual (Subutex) TAKE 1 SUBLINGUAL TABLET TWICE DAILY 1 Active Albuterol Sulfate HFA 108 (90 Base) MCG/ACT Inhalation Aerosol SolutionIndicatio ns:Asthma, unspecified asthma severity, unspecified whether complicated, unspecified whether persistent INHALE 2 PUFFS BY MOUTH IN THE MORNING, AT NOON, IN THE EVENING, AND BEFORE BEDTIME. 54 g 3 2 Active Lactulose 10 GM/15ML Oral Solution (Constulose)Indic ations:Constipati on, unspecified constipation type TAKE 30 ML BY MOUTH IN THE MORNING AND 30 ML BEFORE BEDTIME. 946 mL 1 4 Active Losartan Potassium 25 MG Oral Tablet (Cozaar)Indicatio ns:Hypertension goal BP (blood pressure) < 140/90 TAKE 2 TABLETS BY MOUTH EVERY MORNING 180 Tablet 3 4 Active Albuterol Sulfate (2.5 MG/3ML) 0.083% Inhalation Nebulization Solution (Proventil) Inhale 1 Vial via nebulizer every 6 hours as needed for Wheezing. 360 mL 11 4 Active cloNIDine HCl 0.1 MG Oral Tablet (Catapres) TAKE ONE TABLET THREE TIMES DAILY NEEDED FOR ANXIETY or racing thoughts 4 Active Triamcinolone Acetonide 0.1 % External Cream (Aristocort)Indic ations:Atopic dermatitis, unspecified type Apply topically to affected area 2 times a day. To affected area. 45 g 2 4 Active Polyethylene Glycol 3350 17 GM/SCOOP Oral Powder (MiraLax)Indicati ons:Constipation, unspecified constipation type Take 17 g by mouth in the morning and 17 g before bedtime. Dissolve one heaping tablespoon in 8 ounces of water or juice.. 850 g 5 4 Active Clindamycin HCl 300 MG Oral CapsuleIndication s:Cellulitis of right lower extremity Take 1 Capsule by mouth in the morning and 1 Capsule at noon and 1 Capsule before bedtime. Do all this for 10 days. 30 Capsule 4 07/04/20 24 Active Bacitracin 500 UNIT/GM External OintmentIndicatio ns:Cellulitis of right lower extremity Apply topically to affected area 3 times a day as needed for Other (wound). As directed 30 g 1 4 Active buPROPion HCl ER (SR) 150 MG Oral Tablet Extended Release 12 Hour (Wellbutrin SR)Indications:GA D (generalized anxiety disorder) Take 1 Tablet by mouth in the morning and 1 Tablet before bedtime. 60 Tablet 5 4 Active Triamcinolone Acetonide 0.1 % External Cream (Aristocort)Indic ations:Atopic dermatitis, unspecified type Apply topically to affected area 2 times a day. To affected area. 45 g 2 4 06/24/20 24 Discontinued(Ref ill) Polyethylene Glycol 3350 17 GM/SCOOP Oral Powder (MiraLax)Indicati ons:Constipation, unspecified constipation type Take 17 g by mouth in the morning and 17 g before bedtime. Dissolve one heaping tablespoon in 8 ounces of water or juice.. 850 g 5 4 06/24/20 24 Discontinued(Ref ill) predniSONE 50 MG Oral Tablet (Deltasone) Take 1 Tablet by mouth in the morning for 5 days. 5 Tablet 4 06/24/20 24 Discontinued(Pat ient preference/disco ntinuation) FLUoxetine HCl 10 MG Oral Capsule (PROzac)Indicatio ns:KYLAH (generalized anxiety disorder) Take 1 Capsule by mouth in the morning. 30 Capsule 6 4 06/24/20 24 Discontinued(Pat ient preference/disco ntinuation) buPROPion HCl ER (SR) 150 MG Oral Tablet Extended Release 12 Hour (Wellbutrin SR)Indications:GA D (generalized anxiety disorder) Take 1 Tablet by mouth in the morning and 1 Tablet before bedtime. 60 Tablet 5 4 06/24/20 24 Discontinued documented as of this encounter (statuses as of 06/24/2024) Active Problems Problem Noted Date Diagnosed Date [...] as of this encounter (statuses as of 06/24/2024) Resolved Problems Problem Noted Date Diagnosed Date Resolved Date Food insecurity 11/12/2022 05/14/2024 Overview: Per [facility] Protocol Dental infection 03/18/2022 05/22/2023 Morbid obesity due to excess calories 02/23/2021 12/12/2023 Uncomplicated opioid dependence 02/23/2021 03/26/2022 PTSD (post-traumatic stress disorder) 02/23/2021 03/26/2022 documented as of this encounter (statuses as of 06/24/2024) Social History Tobacco Use Types Packs/Day Years Used Date Smoking Tobacco: Every Day Cigarettes Smokeless Tobacco: Never Tobacco Cessation:Ready to Q uit: No; Counseling Given: No Alcohol Use Standard Drinks/Week Comments No 0 [...] on file documented as of this encounter Last Filed Vital Signs Vital Sign Reading Time Taken Comments Blood Pressure 170/89 06/24/2024 1:12 PM EDT Pulse 96 06/24/2024 1:12 PM EDT Temperature 36.6 C (97.9 F) 06/24/2024 1:12 PM ED T Respiratory Rate 18 06/24/2024 1:12 PM EDT Oxygen Saturation 98% 06/24/2024 1:12 PM EDT Inhaled Oxygen Concentration - - Weight 145.6 kg (321 lb) 06/24/2024 1:12 PM EDT Height - - Body Mass Index 32.76 05/20/2024 7:52 PM EDT documented in this encounter Patient Instructions * Patient Instructions* Nichole Gonzales PA-C - 06/24/2024 1:52 PM EDT Start antibiotic. Start Wellbutrin 2x daily for anxiety. documented in this encounter Progress Notes * Nichole Gonzales PA-C - 06/24/2024 1:16 PM EDT Images from the original note were not included. History of Present Illness Chief Complaint Patient presents with Follow Up 6 mo ret- C/O swelling in R lower leg and foot-bottom of leg is red and warm to touch-has a hole on bottom ofR great toe Has MRI scheduled for Saturday for possible infection in bone-is requesting an antibiotic Would like area on R upper leg to be looked at to see if it is a varicose vein Patient has been verbally educated on the need or importance of Tdap Vaccine and has declined topic(s). Kenji is a 34yo male presenting for acute visit. He is following with podiatry for callus and pressure injury to both great toes. Podiatry concerned of osteomyelitis of right great toe and has ordered MRI. Today, pt is complaining of swelling right lower leg and foot. Warm to touch. His bog toe is now sore. It was debrided last week with wound doctor. Pt would like antibiotic as he feels it is getting infected. He wraps toe with Bacitracin daily. He has a new job and is not on his feet as much.Both toes are healing, but right toe is healing very slowly. BP elevated today. Last dose of losartan was yesterday afternoon. He has moved taking medication towhen he wakes up to go to work which is in the afternoon. Reviewing BP over the past 2 months, he has had readings that were normal and readings that were elevated. Pt would like to start medication for anxiety. He has long standing history of anxiety. He has beentreated before. Celexa made him gain weight. It was used in a combination with Remeron. Zoloft madehim feel terrible. He was fuzzy and felt like bugs were crawling on his skin. He yawned a lot. Trazodone also was bad for him. He had been on Effexor, but doesn't recall how he felt on it. His addiction provider prescribed clonidine for as needed use for anxiety. He has not started taking it yet. Current Medications: Bacitracin 500 UNIT/GM External Ointment buPROPion HCl ER (SR) 150 MG Oral Tablet Extended Release 12 Hour (Wellbutrin SR) Clindamycin HCl 300 MG Oral Capsule Polyethylene Glycol 3350 17 GM/SCOOP Oral Powder (MiraLax) Triamcinolone Acetonide 0.1 % External Cream (Aristocort) Losartan Potassium 25 MG Oral Tablet (Cozaar) Buprenorphine HCl 8 MG Sublingual Tablet Sublingual (Subutex) cloNIDine HCl 0.1 MG Oral Tablet (Catapres) Albuterol Sulfate (2.5 MG/3ML) 0.083% Inhalation Nebulization Solution (Proventil) Lactulose 10 GM/15ML Oral Solution (Constulose) Albuterol Sulfate HFA 108 (90 Base) MCG/ACT Inhalation Aerosol Solution Physical Exam BP 170/89 | Pulse 96 | Temp 36.6 C (97.9 F) (Tympanic) | Resp 18 | Wt (!) 145.6 kg (321 lb) | SpO2 98% | BMI 32.76 kg/m | BSA 2.92 m Physical Exam Vitals and nursing note reviewed. Constitutional: General: He is not in acute distress. Appearance: Normal appearance. He is not ill-appearing, toxic-appearing or diaphoretic. Cardiovascular: Rate and Rhythm: Normal rate. Pulmonary: Effort: Pulmonary effort is normal. Musculoskeletal: Cervical back: Normal range of motion. Right lower leg: Edema (mild around ankle and of foot with mild erythema and warmth) present. Left lower leg: No edema. Neurological: Mental Status: He is alert and oriented to person, place, and time. Psychiatric: Mood and Affect: Mood normal. I have reviewed the following results: BMP results Recent Labs Units 05/20/24200305/08/24 1307 12/30/23 0858 SODIUM - [facility] mmol/L 137 140 140 POTASSIUM - [facility] mmol/L 4.5 4.1 4.4 CHLORIDE - [facility] mmol/L 103 102 102 CO2 - [facility] mmol/L 24 28 28 CREATININE - [facility] mg/dL 0.6 0.7 0.8 BUN - [facility] mg/dL 11 10 11 Lipid panel results Recent Labs Units 12/30/23 0858 CHOLESTEROL - [facility] mg/dL 152 HDL CHOLESTEROL - [facility] mg/dL 43 TRIGLYCERIDES - [facility] mg/dL 105 CBC results Recent Labs Units 05/20/24200305/08/24 1307 12/30/23 0858 WBC K/uL 8.92 7.16 7.95 HGB g/dL 15.3 15.2 15.9 HCT % 46.1 45.2 47.2 PLT K/uL 203 212 241 HbA1c results Recent Labs Units 12/30/23 0858 HEMOGLOBIN A1C - [facility] % 5.9* TSH results Recent Labs Units 12/30/23 0858 TSH - [facility] uIU/mL 5.03* Hepatic panel results Recent Labs Units 05/20/24200305/08/24 1307 12/30/23 0858 PROTEIN - [facility] g/dL 7.7 7.9 6.8 BILIRUBIN, TOTAL - [facility] mg/dL 0.4 0.5 0.4 ALKALINE PHOSPHATASE - [facility] U/L 68 71 62 AST - [facility] U/L 31 17 19 ALT - [facility] U/L 22 20 24 Assessment and Plan Cellulitis of right lower extremity Start Clindamycin. Pt requesting this antibiotic. Allergy to PCN. Clindamycin has always worked well for him. He will follow through with MRI and keep follow up with wound doctor. - Clindamycin HCl 300 MG Oral Capsule; Take 1 Capsule by mouth in the morning and 1 Capsule at noonand 1 Capsule before bedtime. Do all this for 10 days. - Bacitracin 500 UNIT/GM External Ointment; Apply topically to affected area 3 times a day as needed for Other (wound). As directed KYLAH (generalized anxiety disorder) Pt has not tolerated SSRI's in the past. He does not recall if Effexor was helpful or not. He wouldlike to take something that will not likely cause ED. I will try him on Wellbutrin. - buPROPion HCl ER (SR) 150 MG Oral Tablet Extended Release 12 Hour (Wellbutrin SR); Take 1 Tablet by mouth in the morning and 1 Tablet before bedtime. Constipation, unspecified constipation type - Polyethylene Glycol 3350 17 GM/SCOOP Oral Powder (MiraLax); Take 17 g by mouth in the morning and17 g before bedtime. Dissolve one heaping tablespoon in 8 ounces of water or juice.. Atopic dermatitis, unspecified type - Triamcinolone Acetonide 0.1 % External Cream (Aristocort); Apply topically to affected area 2 times a day. To affected area. Wrap-Up Return in about 3 months (around 09/23/2024) for Follow up, nurse BP Check in 2 Weeks. Time: I spent a total of 30-39 minutes (exact time 30 mins) on the date of service in preparation, delivery, and documentation of the care provided to Wesley Moise excluding any time spent in the performance of separately billed services. This note was completed using the dictation program Fluency Direct. As such, there may be misspellings, word substitutions, or other variations that should not change the essence of the clinical content of this encounter note. Please direct questions to me if need for clarification arises. documented in this encounter Plan of Treatment Upcoming Encounters Date Type Department Care Team (Late st Contact Info) Description 06/29/2024 3:30 PM EDT Hospital Encounter Radiology, [address] [place] [address] 07/08/2024 9:40 AM EDT Office [address], [address] [address] V[place]a Bee DPM [facility] [address] 07/08/2024 2:40 PM EDT Nurse Only Ancillary 1st Floor, [place] [address] [phone] Bhumika, Nurse Paulo [address] [place] [id number] 10/14/2024 2:40 PM EST Office Visit Family Practice, [place] [address] [phone] Nichole Gonzales PA-C [address] [phone] Health Maintenance Due Date Last Done Comments DISCUSS TOBACCO CESSATION (REFER TO SMARTSET #9080) 1989 Pneumococcal Vaccine: Pediatrics (0 to 5 Years) and At-Risk Patients (6 to 64 Years) (1 of 2 - PCV) 1995 DTap/Tdap Vaccines (1 - Tdap) 2008 Hepatitis B Vaccine (1 of 3 - 19+ 3-dose series) 2008 *SPIROMETRY ONCE FOR ASTHMA-ADULT 08/23/2022 COVID-19 Vaccine ( - 2023- season) 2024 Influenza Vaccine (FLU shot) (#1) 2024 HbA1c [...] as of this encounter Visit Diagnoses Diagnosis Cellulitis of right lower extremity- Primary Cellulitis and abscess of leg, except foot KYLAH (generalized anxiety disorder) Generalized anxiety disorder Constipation, unspecified constipation type Atopic dermatitis, unspecified type documented in this encounter Care Teams Printed Circuit Boards Plasma Etcher Relationship Specialty Start Date End Date Nichole Gonzales PA-C [address] [phone] PCP - General Physician Pathology Manager 05/22/23 documented as of this encounter"
--- OUTSIDE RECORDS SUMMARY | 2024-07-04 04:04 | External Medical Summary | Summary of Care ---
Author Name Unknown Organization [facility] Address [address] [place] [facility] [place] [address] Phone [phone] Care Team Providers Care Grapple Crew Leader Name Role Phone Nichole Gonzales PA-C Primary Care Provider [phone] Reason for Visit * Reason Onset Date Comments Advice 06/16/2024 Encounter Details Date Type Department Care Team ([facility] st Contact Info) Description [facility] [place] [phone] Nichole Gonzales [facility]-C [facility] [place] [address] Advice Allergies Active Allergy Reactions Criticality Noted Date Comments Naloxone Edema Other,Itching,Rash High 04/14/2021 Penicillins Anaphylaxis High 02/02/2013 anaphylactic Shellfish-Derived Products Edema airway High 04/14/2021 All seafood documented as of this encounter (statuses as of 06/17/2024) Medications Medication Sig Dispensed Refills Start Date [...] as of this encounter (statuses as of 06/17/2024) Active Problems Problem Noted Date Diagnosed Date [...] as of this encounter (statuses as of 06/17/2024) Resolved Problems Problem Noted Date Diagnosed Date Resolved Date Food insecurity 11/12/2022 05/14/2024 Overview: Per [facility] Protocol Dental infection 03/18/2022 05/22/2023 Morbid obesity due to excess calories 02/23/2021 12/12/2023 Uncomplicated opioid dependence 02/23/2021 03/26/2022 PTSD (post-traumatic stress disorder) 02/23/2021 03/26/2022 documented as of this encounter (statuses as of 06/17/2024) Social History Tobacco Use Types Packs/Day Years [...] encounter Miscellaneous Notes * Telephone Encounter - Nichole Gonzales PA-C - 06/17/2024 6:48 PM EDT I agree with advise given. * Telephone Encounter - Stephanie Castellanos LPN - 06/17/2024 11:23 AM EDT The patient walked in tot he clinic to discuss. I advised he should take his medication when it is his "morning" He reports he generally gets up between 1pm- 3pm now. I advised him to take at that time and on his days off he should continue to take at that time of day for consistency and max effect of the medication.. He states his understanding * Telephone Encounter - Aubrie Turner OSA - 06/16/2024 2:03 PM EDT Patient stated that his work schedule changed and he has been taking his Losartin in the afternoon when he wakes up instead of taking it in the morning, and has been doing this since Thursday 06/14. He would like to know if this is okay, please advise. documented in this encounter Plan of Treatment Upcoming Encounters Date Type Department Care Team (Late st Contact Info) Description 06/29/2024 3:30 PM EDT Appointment Radiology, [facility] [address] [facility] [address] 07/08/2024 9:40 AM EDT Office Visit Wound Care, [facility] [address] [facility] [place] [address] V[place]a Bee, DP [address] [facility] [place] [address] Health Maintenance Due Date Last Done Comments DISCUSS TOBACCO CESSATION (REFER TO SMARTSET #1365) 1989 Pneumococcal Vaccine: Pediatrics (0 to 5 Years) and At-Risk Patients (6 to 64 Years) (1 of 2 - PCV) 1995 DTap/Tdap Vaccines (1 - Tdap) 2008 Hepatitis B Vaccine (1 of 3 - 19+ 3-dose series) 2008 *SPIROMETRY ONCE FOR ASTHMA-ADULT 08/23/2022 COVID-19 Vaccine (1 - 2023- season) 2024 Influenza Vaccine (FLU [...] filedocumented as of this encounter Care Teams Grapple Crew Leader Relationship Specialty Start Date End Date Nichole Gonzales PA-C 21 [facility] [place] [phone] PCP - General Physician Entry Level Manager 05/22/23 documented as of this encounter
--- OUTSIDE RECORDS SUMMARY | 2024-07-04 04:04 | External Medical Summary | Summary of Care ---
Author Name Unknown Organization [facility] [address] [place] [address] Phone [phone] Care Team Providers Care Pot Fluxer Name Role Phone Nichole Gonzales PA-C Primary Care Provider [phone] Encounter Details Date Type Department Care Team (Latest Contact Info) Description 05/27/2024 9:42 AM EDT - 05/27/2024 11:59 PM EDT Hospital Encounter [place]iology, [address] [place] [address] Arrived Discharge Disposition: Home - Self Care Allergies Active Allergy Reactions Criticality Noted Date [...] on file documented as of this encounter Plan of Treatment Upcoming Encounters Date Type Department Care Team (Late st Contact Info) Description 06/15/2024 12:40 PM EDT Office Visit Family [facility], [place] [address] [phone] Nichole Gonzales PA-C [address] [address] 06/17/2024 10:00 AM EDT Office Visit Wound Care, [facility] [address] [facility] [place] [place] [address] Vinita Bee DPM [address] [facility] [place] [address] 06/24/2024 3:20 PM EDT Nurse Only Ancillary 1st Floor, [place] [address] [address] Nurse Paulo Ellison [address] [address] Pending Results Name Type Priority Associated Diagnoses Date /Time XR FOOT 3 OR MORE VIEWS Medical Imaging Routine Pressure injury of toe of left foot, stage 1 Pressure injury of toe of right foot, stage 1 05/27/2024 10:00 AM EDT Health Maintenance Due Date Last Done Comments DISCUSS TOBACCO CESSATION (REFER TO SMARTSET #0722) 1989 Pneumococcal Vaccine: Pediatrics (0 to 5 [...] filedocumented as of this encounter Care Teams Pot Fluxer Relationship Specialty Start Date End Date Nichole Gonzales PA-C [address] [address] PCP - General Physician Paralegal Specialist 05/22/23 documented as of this encounter
--- OUTSIDE RECORDS SUMMARY | 2024-07-04 04:04 | External Medical Summary | Summary of Care ---
Author Name Unknown Organization [facility] Address [address] [place] [address] Phone [phone] Care Team Providers Care Change Lead Name Role Phone Nichole Gonzales PA-C Primary Care Provider [phone] Reason for Visit * Reason Comments Follow Up Follow Up: B/L Great toes Encounter Details Date Type Department Care Team ([facility] st Contact Info) Description 05/27/2024 8:40 AM EDT Office Visit Wound Care, [facility] [address] [place] [address] Vinita Bee, [facility] [address] [place] [address] Pressure injury of toe of left foot, stage 1*; Pressure injury of toe of right foot, stage 1 Allergies Active Allergy Reactions Criticality Noted Date Comments Naloxone Edema Other,Itching,Rash High 04/14/2021 Penicillins Anaphylaxis High 02/02/2013 anaphylactic Shellfish-Derived Products Edema airway High 04/14/2021 All seafood documented as of this encounter (statuses as of 05/29/2024) Medications Medication Sig Dispensed Refills Start Date [...] as of this encounter (statuses as of 05/29/2024) Active Problems Problem Noted Date Diagnosed Date [...] as of this encounter (statuses as of 05/29/2024) Resolved Problems Problem Noted Date Diagnosed Date Resolved Date Food insecurity 11/12/2022 05/14/2024 Overview: Per [facility] Protocol Dental infection 03/18/2022 05/22/2023 Morbid obesity due to excess calories 02/23/2021 12/12/2023 Uncomplicated opioid dependence 02/23/2021 03/26/2022 PTSD (post-traumatic stress disorder) 02/23/2021 03/26/2022 documented as of this encounter (statuses as of 05/29/2024) Social History Tobacco Use Types Packs/Day Years [...] Stability Do you currently live in a skilled nursing or have no steady place to sleep [...] Description 06/15/2024 12:40 PM EDT [facility] [phone] Nichole Gonzales [facility]-C [address] [facility] [address] 06/17/2024 10:00 AM EDT Office Visit Wound Care, [facility] [address] [facility] [address] [facility] Bee DPM [facility] [place] [address] 06/24/2024 3:20 PM EDT Nurse Only Ancillary 1st Floor, [place] [address] [address] Bhumika, Nurse Paulo [...] Comments DISCUSS TOBACCO CESSATION (REFER TO SMARTSET #7451) 1989 Pneumococcal Vaccine: Pediatrics (0 to 5 [...] 1 documented in this encounter Care Teams Change Lead Relationship Specialty Start Date End Date Nichole Gonzales PA-C [address] [address] PCP - General Physician Tactical Intelligence Officer 05/22/23 documented as of this encounter
--- OUTSIDE RECORDS SUMMARY | 2024-07-04 04:04 | External Medical Summary | Summary of Care ---
Author Name Unknown Organization [facility] Address [address] [place] [address] Phone [phone] Care Team Providers Care Portfolio Consultant Name Role Phone Nichole Gonzales PA-C Primary Care Provider [phone] Reason for Visit * Reason Comments Follow Up Follow Up: B/L Great toes Encounter Details Date Type Department Care Team ([facility] st Contact Info) Description 05/27/2024 8:40 AM EDT Office Visit Wound Care, [facility] [address] [place] [address] Vinita Bee, [facility] [address] [place] [address] Pressure injury of toe of left foot, [...] Stability Do you currently live in a prison or have no steady place to sleep [...] Description 06/15/2024 12:40 PM EDT Office Visit [facility] [phone] Nichole Gonzales PA-C [address] [facility] [place] [address] 06/17/2024 10:00 AM EDT Office Visit Wound Care, [facility] [address] [facility] [address] [facility]a Bee DPM [address] [facility] [place] [address] 06/24/2024 3:20 PM EDT Nurse Only Ancillary 1st Floor, [place] [address] [address] Bhumika, Nurse Paulo [...] Comments DISCUSS TOBACCO CESSATION (REFER TO SMARTSET #[id number]) 1989 Pneumococcal Vaccine: Pediatrics (0 to 5 [...] 1 documented in this encounter Care Teams Portfolio Consultant Relationship Specialty Start Date End Date Nichole Gonzales PA-C [address] [address] PCP - General Physician Pizza Maker 05/22/23 documented as of this encounter
--- OUTSIDE RECORDS SUMMARY | 2024-07-04 04:04 | External Medical Summary | Summary of Care ---
Author Name Unknown Organization [facility] Address [address] [place] [address] Phone [phone] Care Team Providers Care Client Manager Name Role Phone Nichole Gonzales PA-C Primary Care Provider [phone] Reason for Referral * Precert (Within 10 days (routine)) - Authorized Specialty Diagnoses / Procedures Referred By Contac t Referred To Contact Radiology Diagnoses Pressure injury of toe of left foot, stage 1 Pressure injury of toe of right foot, stage 1 Procedures MRI FOOT RIGHT W WO CONTRAST Vinita Bee DPM [address] [place] [address] Referral ID Status Reason Start Date Expiration Date V isits Requested Visits Authorized [id number] Authorized 06/17/2024 08/16/[phone] Reason for Visit * Reason Comments Follow Up Encounter Details Date Type Department Care Team ([facility] st Contact Info) Description 06/17/2024 10:00 AM EDT Office Visit Wound Care, [address] [place] [address] Vinita Bee DPM [address] [facility] [place] [phone] Pressure injury of toe of left foot, [...] of this encounter Progress Notes * Vinita Bee DPM - 06/17/2024 10:48 AM EDT Images from the original note were not included. Followup Examination Patient: Wesley Moise Allergies: Naloxone, Penicillins, and Shellfish-derived products Chief Complaint: Chief Complaint Patient presents with Follow Up History of Present Illness Wesley Moise is a 34 year old male here today for Corina great toes. Reports he is at his new job. Notes swelling to the right foot. He states that he is using betadine and dsd. Feels there is less callus as he is not on his feet as much. Constitutional There were no vitals taken for [...] Stability Do you currently live in a custodial or have no steady place to sleep [...] Alteration in Skin Integrity Anterior;Right Toe (Active) Clinical Image 06/17/24 1019 Wound Length (cm) 1.5 cm 06/17/24 1019 Wound Width (cm) 1.3 cm 06/17/24 1019 Wound Depth (cm) 0.5 cm 06/17/24 1019 Wound Surface Area (cm^2) 1.95 cm^2 06/17/24 1019 Wound Volume (cm^3) 0.975 cm^3 06/17/24 1019 Alteration in Skin Integrity Anterior;Left Toe (Active) Measurement (in cm) (LxWxD) Wound Only 1.5x1.3x0.5 06/17/24 1015 Clinical Image 06/17/24 1021 Wound Profile Wound Type: Pressure Ulcer (17) [...] Debridement: Improved Total Post Debridement Measurement: Length 1.5 Width 1.3 Depth 0.5 cm Total cm2 15.75 (RIGHT) and (LEFT) Length 1.5X1.3X0.1 Procedure Tolerated: Yes Non OR time Out: [...] Wounds debrided to healthy bleeding tissue - Xrays- without evidence of OM - MRI ordered of the right foot - Again he needs to limit ambulation to both feet- I am still not convinced that there is not an underlying bone infection of the right hallux given the clinical picture - Discussed possible bone infection including IV abx vs toe amputation. - For now-silvadene or antibiotic ointment and dsd - Follow up after MRI Vinita Bee DPM 06/17/2024 documented in this encounter Nursing Notes * Emily Petersen LPN - 06/17/2024 10:10 AM EDT Pt here for wounds on bilateral hallux. Pt states he had xrays and he has not heard back about the results. He is applying betadine and DSD at home documented in this encounter Plan of Treatment Upcoming Encounters Date Type Department Care Team (Late st Contact Info) Description 06/24/2024 3:20 PM EDT Nurse Only Ancillary 1st Floor, [place] [address] [address] Nurse Paulo Bai [address] [phone] 06/29/2024 3:30 PM EDT Appointment Rad[facility], [facility] [address] 07/08/2024 9:40 AM EDT Office Visit Wound Care, [facility] [address] [place] [address] [address] Vinita Bee, DPM [facility] [place] [address] Scheduled Orders Name Type Priority Associated Diagnoses Orde r Schedule MRI FOOT RIGHT W WO CONTRAST Medical Imaging Routine Pressure injury of toe of left foot, stage 1 Pressure injury of toe of right foot, stage 1 Expected: 07/01/2024, Expires: 07/17/2025 Health Maintenance Due Date Last Done Comments DISCUSS TOBACCO CESSATION (REFER TO SMARTSET #6856) 1989 Pneumococcal Vaccine: Pediatrics (0 to 5 [...] 1 documented in this encounter Care Teams Client Manager Relationship Specialty Start Date End Date Nichole Gonzales PA-C [address] [phone] PCP - General Physician Dictaphone Typist 05/22/23 documented as of this encounter
--- OUTSIDE RECORDS SUMMARY | 2024-07-04 04:05 | External Medical Summary | Summary of Care ---
Author Name Unknown Organization [facility] Address [address] [place] [facility] [place] [place] [address] Phone [phone] Care Team Providers Care Hand Box Folder Name Role Phone Nichole Gonzales PA-C Primary Care Provider [phone] Reason for Visit * Reason Comments Cerumen Impaction Bilateral, decreased hearing Encounter Details Date Type Department Care Team ([facility] st Contact Info) Description 04/27/2024 2:20 PM EDT Office Visit [facility] [address] [phone] Carly Mckeon MD [address] [facility] [place] [place] [address] Impacted cerumen of left ear* Allergies Active Allergy Reactions Criticality Noted Date Comments Naloxone Edema Other,Itching,Rash High 04/14/2021 Penicillins Anaphylaxis High 02/02/2013 anaphylactic Shellfish-Derived Products Edema airway High 04/14/2021 All seafood documented as of this encounter (statuses as of 05/18/2024) Medications Medication Sig Dispensed Refills Start Date [...] BEFORE BEDTIME. 54 g 3 2 Active Triamcinolone Acetonide 0.1 % External Cream (Aristocort)Indic ations:Atopic dermatitis, unspecified type Apply topically to affected area 2 times a day. To affected area. 45 g 2 4 Active Losartan Potassium 25 MG Oral Tablet (Cozaar)Indicatio ns:Hypertension goal BP (blood pressure) < 140/90 TAKE 2 TABLETS BY MOUTH EVERY MORNING 180 Tablet 3 3 05/13/20 24 Discontinued(Ref ill) Polyethylene Glycol 3350 17 GM/SCOOP Oral Powder (MiraLax)Indicati ons:Constipation, unspecified constipation type Take 17 g by mouth as needed for Constipation. Dissolve one heaping tablespoon in 8 ounces of water or juice. 850 g 5 4 05/13/20 24 Discontinued(Ref ill) Lactulose 10 GM/15ML Oral Solution (Constulose)Indic ations:Constipati on, unspecified constipation type TAKE 30 ML BY MOUTH IN THE MORNING AND 30 ML BEFORE BEDTIME. 946 mL 1 4 04/28/20 24 Discontinued Clindamycin HCl 300 MG Oral Capsule Take 1 Capsule by mouth in the morning and 1 Capsule at noon and 1 Capsule before bedtime. 30 Capsule 4 04/27/20 24 Discontinued(Pat ient preference/disco ntinuation) Debrox 6.5 % Otic Solution (Carbamide Peroxide)Indicati ons:Impacted cerumen of left ear Administer 4 Drops into the left ear in the morning and 4 Drops before bedtime. Do all this for 5 days. Fill ear canal and insert cotton plug. Remove plug after 15 to 30 minutes.. 15 mL 4 05/13/20 24 Discontinued(Pat ient preference/disco ntinuation) documented as of this encounter (statuses as of 05/18/2024) Active Problems Problem Noted Date Diagnosed Date [...] as of this encounter (statuses as of 05/18/2024) Resolved Problems Problem Noted Date Diagnosed Date Resolved Date Food insecurity 11/12/2022 05/14/2024 Overview: Per [facility] Protocol Dental infection 03/18/2022 05/22/2023 Morbid obesity due to excess calories 02/23/2021 12/12/2023 Uncomplicated opioid dependence 02/23/2021 03/26/2022 PTSD (post-traumatic stress disorder) 02/23/2021 03/26/2022 documented as of this encounter (statuses as of 05/18/2024) Social History Tobacco Use Types Packs/Day Years Used Date Smoking Tobacco: Every Day Cigarettes Smokeless Tobacco: Never Tobacco Cessation:Ready to Q uit: Not Asked; Counseling Given: Not Answered Alcohol Use Standard Drinks/Week Comments No 0 [...] Sign Reading Time Taken Comments Blood Pressure 108/66 04/27/2024 2:17 PM EDT Pulse 72 04/27/2024 2:17 PM EDT Temperature 36.4 C (97.5 F) 04/27/2024 2:17 PM ED T Respiratory Rate 16 04/27/2024 2:17 PM EDT Oxygen Saturation 97% 04/27/2024 2:17 PM EDT Inhaled Oxygen Concentration - - Weight 147 kg (324 lb) 04/27/2024 2:17 PM EDT Height - - Body Mass Index 33.07 12/21/2023 5:12 PM EDT documented in this encounter Progress Notes * Carly Mckeon MD - 05/18/2024 10:09 AM EDT Images from the original note were not included. History of Present Illness Wesley Moise is a 34 year old male that presents for Cerumen Impaction (Bilateral, decreased hearing) Acute visit. Patient reports decreased hearing, hx cerumen impaction in the past. No acute illness/otalgia/dizziness/headache. Physical Exam Vitals: 04/27/24 1417 Temp: 36.4 C (97.5 F) Pulse: 72 Resp: 16 SpO2: 97% BP: 108/66 BP Readings from Last 3 Encounters: 05/13/24 102/68 05/08/24 156/91 04/27/24 108/66 Wt Readings from Last 3 Encounters: 05/13/24 (!) 141.8 kg (312 lb 9.6 oz) 04/27/24 (!) 147 kg (324 lb) 01/03/24 (!) 151.7 kg (334 lb 6.4 oz) BMI Readings from Last 3 Encounters: 05/13/24 31.90 kg/m 04/27/24 33.07 kg/m 01/03/24 34.13 kg/m Physical Exam Constitutional: Appearance: Normal appearance. HENT: Head: Normocephalic and atraumatic. Left Ear: There is impacted cerumen. Cardiovascular: Rate and Rhythm: Normal rate. Pulmonary: Effort: Pulmonary effort is normal. Neurological: Mental Status: He is alert and oriented to person, place, and time. Psychiatric: Mood and Affect: Mood normal. Behavior: Behavior normal. I have reviewed the following results: None Assessment and Plan 1. Impacted cerumen of left ear - Debrox drops sent, will schedule nurse visit for ear lavage in 4 days. Wrap-Up Follow-up: Return in about 4 days (around 2024), or if symptoms worsen or fail to improve. | Check-out note: Nurse visit for left ear lavage in 4-5 days Time: I spent a total of 10-19 minutes (exact time 8 mins) on the date of service in preparation, delivery, and documentation of the care provided to Wesley Moise excluding any time spent in the performance of separately billed services. documented in this encounter Plan of Treatment Upcoming Encounters Date Type Department Care Team (Late st Contact Info) Description 05/20/2024 10:40 AM EDT Office Visit Wound Care, [facility] [address] [facility] [place] [address] V[place]a Bee DPM [facility] [address] 05/20/2024 3:20 PM EDT Nurse Only Ancillary 1st Floor, [place] [facility] [address] [place], Nurse [facility] [place] [address] 06/15/2024 12:40 PM EDT Office Visit [facility], [place] [address] [facility] [place] [phone] Nichole Gonzales PA-C [address] [facility] [address] Health Maintenance Due Date Last Done Comments DISCUSS TOBACCO CESSATION (REFER TO SMARTSET #0793) 1989 Pneumococcal Vaccine: Pediatrics (0 to 5 Years) and At-Risk Patients (6 to 64 Years) (1 of 2 - PCV) 1995 DTaP,Tdap,and Td Vaccines (1 - Tdap) 2008 Hepatitis B Vaccine (1 of 3 - 19+ 3-dose series) 2008 *SPIROMETRY ONCE FOR ASTHMA-ADULT 08/23/2022 COVID-19 Vaccine ( season) 2023 Influenza Vaccine (FLU shot) (#1) 2024 HbA1c 12/29/2024 12/30/2023, 03/23/2022 Depression Screening 04/27/2025 04/27/2024 GFR 05/08/2025 05/08/2024, 04/0 09/2023, 12/21/2023, Additional history exists Albumin/Creatinine Ratio 12/29/2026 12/30/2023 HPV (Gardasil) Vaccine Aged Out No lo nger eligible based on patient's age to complete this topic MENINGOCOCCAL (MENACTRA/MENVEO) Aged Out No longer eligible based on patient's age to complete this topic documented as of this encounter Medical Devices Not on filedocumented as of this encounter Visit Diagnoses Diagnosis Impacted cerumen of left ear- Primary Impacted cerumen documented in this encounter Care Teams Hand Box Folder Relationship Specialty Start Date End Date Nichole Gonzales PA-C [address] [address] PCP - General Physician Food Service Order Clerk 05/22/23 documented as of this encounter"
--- OUTSIDE RECORDS SUMMARY | 2024-07-04 04:05 | External Medical Summary | Summary of Care ---
Author Name Unknown Organization [facility] Address [address] [place] [address] Phone [phone] Care Team Providers Care Edge Burnisher Name Role Phone Nichole Gonzales PA-C Primary Care Provider [phone] Reason for Visit * Reason Comments Emergency Department Follow-Up Pt was patria ospina stomach pain/pressure and tightness-diagnosed with constipation and fat related hernia Is still having above sxs and constipation and bloating Has a lump on L side of neck that started last night that will randomly swell up Encounter Details Date Type Department Care Team (Late st Contact Info) Description 05/13/2024 5:00 PM EDT Office Visit [facility] [address] [facility] [place] [phone] Nichole Gonzales PA-C 21 [facility] [place] [phone] Constipation, unspecified constipation type*; Umbilical hernia without obstruction and without gangrene; Hypertension goal BP (blood pressure) < 140/90 Allergies Active Allergy Reactions Criticality Noted Date Comments Naloxone Edema Other,Itching,Rash High 04/14/2021 Penicillins Anaphylaxis High 02/02/2013 anaphylactic Shellfish-Derived Products Edema airway High 04/14/2021 All seafood documented as of this encounter (statuses as of 05/13/2024) Medications Medication Sig Dispensed Refills Start Date End Date Status Buprenorphine HCl 8 MG Sublingual Tablet Sublingual (Subutex) TAKE 1 SUBLINGUAL TABLET TWICE DAILY 03/28/2021 Active Albuterol Sulfate HFA 108 (90 Base) MCG/ACT Inhalation Aerosol SolutionIndication s:Asthma, unspecified asthma severity, unspecified whether complicated, unspecified whether persistent INHALE 2 PUFFS BY MOUTH IN THE MORNING, AT NOON, IN THE EVENING, AND BEFORE BEDTIME. 54 g 3 06/08/2022 Active Triamcinolone Acetonide 0.1 % External Cream (Aristocort)Indica tions:Atopic dermatitis, unspecified type Apply topically to affected area 2 times a day. To affected area. 45 g 2 12/12/2023 Active Lactulose 10 GM/15ML Oral Solution (Constulose)Indica tions:Constipation , unspecified constipation type TAKE 30 ML BY MOUTH IN THE MORNING AND 30 ML BEFORE BEDTIME. 946 mL 1 04/28/2024 Active Losartan Potassium 25 MG Oral Tablet (Cozaar)Indication s:Hypertension goal BP (blood pressure) < 140/90 TAKE 2 TABLETS BY MOUTH EVERY MORNING 180 Tablet 3 05/13/2024 Active Polyethylene Glycol 3350 17 GM/SCOOP Oral Powder (MiraLax)Indicatio ns:Constipation, unspecified constipation type Take 17 g by mouth in the morning and 17 g before bedtime. Dissolve one heaping tablespoon in 8 ounces of water or juice.. 850 g 5 05/13/2024 Active Losartan Potassium 25 MG Oral Tablet (Cozaar)Indication s:Hypertension goal BP (blood pressure) < 140/90 TAKE 2 TABLETS BY MOUTH EVERY MORNING 180 Tablet 3 05/22/2023 4 Discontinue d(Refill) Polyethylene Glycol 3350 17 GM/SCOOP Oral Powder (MiraLax)Indicatio ns:Constipation, unspecified constipation type Take 17 g by mouth as needed for Constipation. Dissolve one heaping tablespoon in 8 ounces of water or juice. 850 g 5 12/12/2023 4 Discontinue d(Refill) Debrox 6.5 % Otic Solution (Carbamide Peroxide)Indicatio ns:Impacted cerumen of left ear Administer 4 Drops into the left ear in the morning and 4 Drops before bedtime. Do all this for 5 days. Fill ear canal and insert cotton plug. Remove plug after 15 to 30 minutes.. 15 mL 04/27/2024 4 Discontinue d(Patient preference/ discontinua tion) documented as of this encounter (statuses as of 05/13/2024) Active Problems Problem Noted Date Diagnosed Date Prediabetes 12/22/2023 Non-pressure chronic ulcer o f skin of other sites with unspecified severity 12/12/2023 Callus 12/12/2023 Hypertension goal BP (blood pressure) < 140/90 0 05/22/2023 Food insecurity 11/12/2022 Overview: Per [facility] Protocol Mild intermittent asthma without complication Advance directive discussed with patient 021 History of anxiety disorder 02/23/2021 Class 1 obesity without seri ous comorbidity with body mass index (BMI) of 34.0 to 34.9 in adult 02/07/2021 Overview: Per Obesity protocol Spinal stenosis of lumbar region with radiculopa thy 02/02/2013 documented as of this encounter (statuses as of 05/13/2024) Resolved Problems Problem Noted Date Diagnosed Date Resolved Date Dental infection 03/18/2022 05/22/2023 Morbid obesity due to excess calories 02/23/2021 12/12/2023 Uncomplicated opioid dependence 02/23/2021 03/26/2022 PTSD (post-traumatic stress disorder) 02/23/2021 03/26/2022 documented as of this encounter (statuses as of 05/13/2024) Social History Tobacco Use Types Packs/Day Years [...] Sign Reading Time Taken Comments Blood Pressure 102/68 05/13/2024 5:03 PM EDT Pulse 75 05/13/2024 5:03 PM EDT Temperature 36.1 C (96.9 F) 05/13/2024 5:03 PM ED T Respiratory Rate 18 05/13/2024 5:03 PM EDT Oxygen Saturation 99% 05/13/2024 5:03 PM EDT Inhaled Oxygen Concentration - - Weight 141.8 kg (312 lb 9.6 oz) 05/13/2024 5:03 PM EDT Height - - Body Mass Index 31.9 12/21/2023 5:12 PM EDT documented in this encounter Patient Instructions * Patient Instructions* Nichole Gonzales PA-C - 05/13/2024 5:29 PM EDT Increase Miralax to 2 to 3x daily. Increase water consumption. Consider doing Fleets enema. documented in this encounter Progress Notes * Nichole Gonzales PA-C - 05/13/2024 5:07 PM EDT Images from the original note were not included. History of Present Illness Chief Complaint Patient presents with Emergency Department Follow-Up Pt was having stomach pain/pressure and tightness-diagnosed with constipation and fat related hernia Is still having above sxs and constipation and bloating Has a lump on L side of neck that started last night that will randomly swell up Patient presented to [facility] ED on 05/08/2024 with complaints of abdominal pain, constipation, and a lump in the upper abdomen. Patient had been taking lactulose and MiraLax prior to ED visit which did help produce daily bowel movements. However patient continued to feel pressure in upper abdomen. Blood work in ED was normal. CT scan of abdomen/pelvis with no acute findings, however evidence of constipation as well as a small fat containing umbilical hernia noted. Patient reports continued abdominal pressure and constipation bloating. The swelling he describes is in the epigastrium and not umbilical where hernia is located. He now also notices a lump left sideof neck that started last night. Seems to come and go today. Swells with eating. Current Medications: Losartan Potassium 25 MG Oral Tablet (Cozaar) Polyethylene Glycol 3350 17 GM/SCOOP Oral Powder (MiraLax) Lactulose 10 GM/15ML Oral Solution (Constulose) Buprenorphine HCl 8 MG Sublingual Tablet Sublingual (Subutex) Triamcinolone Acetonide 0.1 % External Cream (Aristocort) Albuterol Sulfate HFA 108 (90 Base) MCG/ACT Inhalation Aerosol Solution Physical Exam BP 102/68 | Pulse 75 | Temp 36.1 C (96.9 F) (Tympanic) | Resp 18 | Wt (!) 141.8 kg (312 lb 9.6 oz) | SpO2 99% | BMI 31.90 kg/m | BSA 2.88 m Physical Exam Vitals and nursing note reviewed. Constitutional: General: He is not in acute distress. Appearance: Normal appearance. He is not ill-appearing, toxic-appearing or diaphoretic. Cardiovascular: Rate and Rhythm: Normal rate and regular rhythm. Heart sounds: Normal heart sounds. Pulmonary: Effort: Pulmonary effort is normal. Breath sounds: Normal breath sounds. Abdominal: General: There is no distension. Palpations: Abdomen is soft. Tenderness: There is generalized abdominal tenderness (mild). Comments: I cannot palpate the small umbilical hernia noted on CT. Musculoskeletal: Cervical back: Normal range of motion. Right lower leg: No edema. Left lower leg: No edema. Neurological: Mental Status: He is alert and oriented to person, place, and time. Psychiatric: Mood and Affect: Mood normal. I have reviewed the following results: Imaging results in the last [address] ABD/PELVIS W IV CONTRAST - WO ORAL CONTRAST Result Date: 05/08/2024 IMPRESSION: 1. There is a small fat-containing umbilical hernia. 2. Nonobstructive bowel gas pattern 3. Constipation. No focal inflammation of bowel. 4. Mild mesenteric adenitis. THIS DOCUMENT HAS BEEN ELECTRONICALLY SIGNED BY EVAN KAHN MD CT ABD/PELVIS W IV CONTRAST - WO ORAL CONTRAST Result Date: 12/21/2023 IMPRESSION: 1. Findings concerning for clinical constipation, correlate clinically. 2. Mild to moderate bilateral ileoinguinal reactive lymph nodes correlate clinically. 3. Multilevel degenerative disc disease with facet arthrosis of the lumbar spine. THIS DOCUMENT HAS BEEN ELECTRONICALLY SIGNED BY JONATHAN PATTEN MD BMP results Recent Labs Units 05/08/24 1307 12/30/23 0858 12/21/23 1752 SODIUM - [facility] mmol/L 140 140 139 POTASSIUM - [facility] mmol/L 4.1 4.4 4.5 CHLORIDE - [facility] mmol/L 102 102 103 CO2 - [facility] mmol/L 28 28 25 CREATININE - [facility] mg/dL 0.7 0.8 0.8 BUN - [facility] mg/dL 10 11 12 CBC results Recent Labs Units 05/08/24 1307 12/30/23 0858 12/21/23 1752 WBC K/uL 7.16 7.95 9.53 HGB g/dL 15.2 15.9 15.7 HCT % 45.2 47.2 46.0 PLT K/uL 212 241 246 TSH results Recent Labs Units 12/30/23 0858 TSH - [facility] uIU/mL 5.03* Hepatic panel results Recent Labs Units 05/08/24 1307 12/30/23 0858 12/21/23 1752 PROTEIN - [facility] g/dL 7.9 6.8 7.8 BILIRUBIN, TOTAL - [facility] mg/dL 0.5 0.4 0.4 ALKALINE PHOSPHATASE - [facility] U/L 71 62 69 AST - [facility] U/L 17 19 27 ALT - [facility] U/L 20 24 22 Assessment and Plan Constipation, unspecified constipation type Advised pt to increase Miralax to 3x daily until he has a good BM. Then he can back down to once ortwice daily. He may continue Lactulose at bedtime. He avoids this during the day because it makes him bloated. Consider Fleets enema to help produce a good BM. - Polyethylene Glycol 3350 17 GM/SCOOP Oral Powder (MiraLax); Take 17 g by mouth in the morning and17 g before bedtime. Dissolve one heaping tablespoon in 8 ounces of water or juice.. Umbilical hernia without obstruction and without gangrene Small. Pt would like a hernia belt/brace because he does a lot of heavy lifting at work. - DURABLE MEDICAL EQUIPMENT Hypertension goal BP (blood pressure) < 140/90 Needs refill of losartan. Controlled on current treatment. Continue current treatment plan. - Losartan Potassium 25 MG Oral Tablet (Cozaar); TAKE 2 TABLETS BY MOUTH EVERY MORNING Wrap-Up Return if symptoms worsen or fail to improve. Time: I spent a total of 20-29 minutes (exact time 22 mins) on the date of service in [...] 10:40 AM EDT Office Visit Wound Care, [facility] [address] [facility] [place] [address] Vinita Bee DPM 400 [place] [address] 05/20/2024 3:20 PM EDT Nurse Only Ancillary 1st Floor, [place] [address] [place] [address] [place], Nurse 21 [facility] [place] [address] 06/15/2024 12:40 PM EDT Office Visit Family Practice, [place] [address] [place] [phone] Nichole Gonzales PA-C 21 [facility] [place] [address] Health Maintenance Due Date Last Done Comments DISCUSS TOBACCO CESSATION (REFER TO SMARTSET #0988) 1989 Pneumococcal Vaccine: Pediatrics (0 to 5 Years) and At-Risk Patients (6 to 64 Years) (1 of 2 - PCV) 1995 DTaP,Tdap,and Td Vaccines (1 - Tdap) 2008 Hepatitis B Vaccine (1 of 3 - 19+ 3-dose series) 2008 *SPIROMETRY ONCE FOR ASTHMA-ADULT 08/23/2022 COVID-19 Vaccine (1 - season) 2023 Influenza Vaccine (FLU shot) [...] as of this encounter Visit Diagnoses Diagnosis Constipation, unspecified constipation type- Primary Umbilical hernia without obstruction and without gangrene Hypertension goal BP (blood pressure) < 140/90 Unspecified essential hypertension documented in this encounter Care Teams Edge Burnisher Relationship Specialty Start Date End Date Nichole Gonzales PA-C 21 [facility] [place] [phone] PCP - General Physician Corporate Travel Counselor 05/22/23 documented as of this encounter"
--- OUTSIDE RECORDS SUMMARY | 2024-07-04 04:05 | External Medical Summary | Summary of Care ---
Author Name Unknown Organization [facility] Address [address] [place] [address] Phone [phone] Care Team Providers Care Poker Manager Name Role Phone Nichole Gonzales PA-C Primary Care Provider [phone] Reason for Visit * Reason Onset Date Comments Appointment 05/27/2024 WOUND APPOINTMEN T Encounter Details Date Type Department Care Team ([facility] st Contact Info) Description 05/27/2024 Telephone Wound Care, [facility] [address] [place] [address] Vinita Bee DPM [address] [place] [address] Appointment (WOUND APPOINTMENT) Allergies Active Allergy Reactions Criticality Noted Date [...] encounter Miscellaneous Notes * Telephone Encounter - Carmenza Watts OSA - 05/27/2024 9:33 AM EDT I attempted to schedule the patient for a wound appointment with Dr. Bee next week at check out today. The patient refused stating he is starting a new job and has training for the next two weeks. The appointment was scheduled 06/17/24 at 10:00 am. The patient then stated he will go to the ER if the wound worsens in the interim. He also stated he will call the office back if there is any way hecan make arrangements to come in next week. documented in this encounter Plan of Treatment Upcoming Encounters Date Type Department Care Team (Late st Contact Info) Description 06/15/2024 12:40 PM EDT [address] [phone] [facility] [address] 06/17/2024 10:00 AM EDT Office Visit Wound Care, [facility] [address] [facility] [place] [address] Vinita Bee, DPM [address] [facility] [place] [address] 06/24/2024 3:20 PM EDT Nurse Only Ancillary 1st Floor, [place] 21 [facility] [place] [address] Nurse Paulo Bai [facility] [address] Health Maintenance Due Date Last Done Comments DISCUSS TOBACCO CESSATION (REFER TO SMARTSET #[id number]) 1989 Pneumococcal Vaccine: Pediatrics (0 to 5 [...] Depression Screening 04/27/2025 04/27/2024 GFR 05/20/2025 05/20/2024, 05/2024, 12/30/2023, Additional history exists Albumin/Creatinine Ratio 12/29/2026 12/30/2023 HPV (Gardasil) Vaccine Aged Out No lo nger eligible based on patient's age to complete this topic MENINGOCOCCAL (MENACTRA/MENVEO) Aged Out No longer eligible based on patient's age to complete this topic documented as of this encounter Medical Devices Not on filedocumented as of this encounter Care Teams Poker Manager Relationship Specialty Start Date End Date Nichole Gonzales PA-C [address] [place] [address] PCP - General Physician Geothermal Technician 05/22/23 documented as of this encounter
--- OUTSIDE RECORDS SUMMARY | 2024-07-04 04:05 | External Medical Summary ---
Author Name Unknown Address Unknown Organization K1F:[facility] - [address] [facility]. Bhumika NOLAN [address] Laboratory Report Ordering Provider Test Date Status ANI FLEMING 05/20/2024 20:04:25 Final Observation Date Value Abnormality Reference (Units ) Status BUN 05/20/2024 20:04:25 11 6-20 (mg/dL) Final Creatinine 05/20/2024 20:04:25 0.6 0.6-1.2 (mg/dL) Final Glomerular filtration rate/1.73 sq M.predicted [Volume Rate/Area] in Serum, Plasma or Blood by Creatinine-based formula (CKD-EPI) 05/20/2024 20:04:25 >90 >=60 (mL/min) Final eGFR is calculated based on the CKD-EPI 2020 equation. Sodium 05/20/2024 20:04:25 137 135-146 (m mol/L) Final Potassium 05/20/2024 20:04:25 4.5 3.5-5.1 (m mol/L) Final Results may be falsely eleva ruperto due to hemolysis. Cl 05/20/2024 20:04:25 103 98-107 (mm ol/L) Final CO2 05/20/2024 20:04:25 24 22-32 (mmo l/L) Final Anion gap 05/20/2024 20:04:25 10 7-15 (mmol /L) Final Glucose 05/20/2024 20:04:25 90 70-120 (mg /dL) Final Albumin 05/20/2024 20:04:25 4.3 3.8-5.0 (g /dL) Final AST (Aspartate aminotransferase) 05/20/2024 20:04:25 31 10-50 (U/L) Final Results may be falsely eleva ruperto due to hemolysis. Alk Phos 05/20/2024 20:04:25 68 35-130 (U/ L) Final Bilirubin, Total 05/20/2024 20:04:25 0.4 <=1 .2 (mg/dL) Final Calcium 05/20/2024 20:04:25 9.5 8.4-10.2 ( mg/dL) Final Protein 05/20/2024 20:04:25 7.7 6.0-8.3 (g /dL) Final ALT (Alanine aminotransferase) 05/20/2024 20:04:25 22 10-50 (U/L) Final Results may be falsely eleva ruperto due to hemolysis. Performing Location LABORATORY [facility] - [facility] [place] [address]. [place] NOLAN [address]
--- OUTSIDE RECORDS SUMMARY | 2024-07-04 04:05 | External Medical Summary ---
Author Name Unknown Address Unknown Organization K1F:[facility]ORY [facility] - [address] [facility]. [place]humika NOLAN [address] Laboratory Report Ordering Provider Test Date Status ANI FLEMING 05/20/2024 20:04:25 Final Observation Date Value Abnormality Reference (Units ) Status SYNC LEUKOCYTES IN BLOOD BY AUTOMATED COUNT 05/20/2024 20:04:25 8.92 4.00-10.80 (K/uL) Final Segs 05/20/2024 20:04:25 54.1 40.0-75.0 (%) Final Lymphs % 05/20/2024 20:04:25 37.4 18.0-42.0 (%) Final Monos 05/20/2024 20:04:25 4.9 1.0-11.0 (%) Final Eosinophils 05/20/2024 20:04:25 3.1 0.0-6.0 (%) Final Basos 05/20/2024 20:04:25 0.3 0.0-2.0 (%) Final Immature Granulocyte, Percent 05/20/2024 20:04:25 0.2 0.0-2.0 (%) Final Absolute Segs 05/20/2024 20:04:25 4.81 1.80-7.70 (K/uL) Final Lymphs, absolute 05/20/2024 20:04:25 3.34 1.00-4.80 (K/ul) Final Monos, Abs 05/20/2024 20:04:25 0.44 0.00-1.10 (K/uL) Final Eos, Abs 05/20/2024 20:04:25 0.28 0.00-0.70 (K/uL) Final Basos, Abs 05/20/2024 20:04:25 0.03 0.00-0.20 (K/uL) Final Immature Granulocytes, Number 05/20/2024 20:04:25 0.02 0.00-0.20 (K/uL) Final Performing Location LABORATORY [facility] - [address] [place] [address]
--- OUTSIDE RECORDS SUMMARY | 2024-07-04 04:05 | External Medical Summary | Summary of Care ---
Author Name Unknown Organization [facility] Address [address] [place] [facility] [place] [facility] [place] [address] Phone [phone] Care Team Providers Care Unhairing Inspector Name Role Phone Nichole Gonzales PA-C Primary Care Provider [phone] Reason for Visit * Reason Onset Date Comments Advice 05/25/2024 Encounter Details Date Type Department Care Team ([facility] st Contact Info) Description 05/25/2024 [facility] [place] [phone] Nichole Gonzales PA-C [facility] [place] [address] Advice Allergies Active Allergy Reactions Criticality Noted Date Comments Naloxone Edema Other,Itching,Rash High 04/14/2021 Penicillins Anaphylaxis High 02/02/2013 anaphylactic Shellfish-Derived Products Edema airway High 04/14/2021 All seafood documented as of this encounter (statuses as of 05/25/2024) Medications Medication Sig Dispensed Refills Start Date [...] or juice.. 850 g 5 05/13/2024 Active predniSONE 50 MG Oral Tablet (Deltasone) Take 1 Tablet by mouth in the morning for 5 days. 5 Tablet 05/20/2024 05/25/2024 Active Albuterol Sulfate (2.5 MG/3ML) 0.083% Inhalation Nebulization Solution (Proventil) Inhale 1 Vial via nebulizer every 6 hours as needed for Wheezing. 360 mL 11 05/20/2024 Active documented as of this encounter (statuses as of 05/25/2024) Active Problems Problem Noted Date Diagnosed Date [...] as of this encounter (statuses as of 05/25/2024) Resolved Problems Problem Noted Date Diagnosed Date Resolved Date Food insecurity 11/12/2022 05/14/2024 Overview: Per [facility] Protocol Dental infection 03/18/2022 05/22/2023 Morbid obesity due to excess calories 02/23/2021 12/12/2023 Uncomplicated opioid dependence 02/23/2021 03/26/2022 PTSD (post-traumatic stress disorder) 02/23/2021 03/26/2022 documented as of this encounter (statuses as of 05/25/2024) Social History Tobacco Use Types Packs/Day Years [...] Notes * Telephone Encounter - Gill Wagner, [facility] - 05/25/2024 12:04 PM EDT Reviewed med [...] Clinical Pharmacy Services ([facility]) 05/25/24 12:07 PM [phone] * Telephone Encounter - Sveta Wiggins CPhT - 05/25/2024 11:55 AM EDT Lucina WOLFE scheduling has pt on the line with her and he wants to know if he is able to take his current medications while on Prednisone, warm transferred to [facility] for further assistance. Thank you, Sveta Wiggins CPhT Sheet Combining Operator II [facility] ([facility]) 05/25/2024,11:57 AM documented in this encounter Plan of Treatment Upcoming Encounters Date Type Department Care Team (Late st Contact Info) Description 05/27/2024 8:40 AM EDT Office Visit Wound Care, [facility] [address] [facility] [place] [address] Vinita Bee, DPM [facility] [address] 06/03/2024 2:40 PM EDT Nurse Only Ancillary 1st Floor, [place] [address] [place] [address] [place] [place] [address] 06/15/2024 12:40 PM EDT Office Visit Family Practice, [place] [address] [place] [address] [phone] Nichole Gonzales PA-C [address] [place] [address] Health Maintenance Due Date Last Done Comments DISCUSS TOBACCO CESSATION (REFER TO SMARTSET #9466) 1989 Pneumococcal Vaccine: Pediatrics (0 to 5 [...] filedocumented as of this encounter Care Teams Unhairing Inspector Relationship Specialty Start Date End Date Nichole Gonzales PA-C 21 [facility] [place] [phone] PCP - General Physician Artist Representative 05/22/23 documented as of this encounter
--- OUTSIDE RECORDS SUMMARY | 2024-07-04 04:05 | External Medical Summary | Summary of Care ---
Author Name Unknown Organization [facility] Address [address] [place] [address] Phone [phone] Care Team Providers Care Child Care Centre Director Name Role Phone Nichole Gonzales PA-C Primary Care Provider [phone] Encounter Details Date Type Department Care Team ([facility] st Contact Info) Description 05/20/2024 Orders Only [facility] ([facility]) [address] [place] [address] Deuce Parmar, DO [address] [place], [place] [phone] Allergies Active Allergy Reactions Criticality Noted Date Comments Naloxone Edema Other,Itching,Rash High 04/14/2021 Penicillins Anaphylaxis High 02/02/2013 anaphylactic Shellfish-Derived Products Edema airway High 04/14/2021 All seafood documented as of this encounter (statuses as of 05/20/2024) Medications Medication Sig Dispensed Refills Start Date [...] as of this encounter (statuses as of 05/20/2024) Active Problems Problem Noted Date Diagnosed Date [...] as of this encounter (statuses as of 05/20/2024) Resolved Problems Problem Noted Date Diagnosed Date Resolved Date Food insecurity 11/12/2022 05/14/2024 Overview: Per [facility] Protocol Dental infection 03/18/2022 05/22/2023 Morbid obesity due to excess calories 02/23/2021 12/12/2023 Uncomplicated opioid dependence 02/23/2021 03/26/2022 PTSD (post-traumatic stress disorder) 02/23/2021 03/26/2022 documented as of this encounter (statuses as of 05/20/2024) Social History Tobacco Use Types Packs/Day Years [...] Office Visit Wound Care, [facility] [address] [place] [address] Vinita Bee, DOMINIC 400 [facility] [place] [address] 06/03/2024 2:40 PM EDT Nurse Only Ancillary 1st Floor, [place] 21 [place] [address] [address] [place] joel 21 [place] [address] 06/15/2024 12:40 PM EDT [facility] [address] [place] [phone] Nichole Gonzales PA-C [place] [address] Health Maintenance Due Date Last Done Comments DISCUSS TOBACCO CESSATION (REFER TO SMARTSET #7810) 1989 Pneumococcal Vaccine: Pediatrics (0 to 5 [...] filedocumented as of this encounter Care Teams Child Care Centre Director Relationship Specialty Start Date End Date Nichole Gonzales PA-C 21 [place] [address] PCP - General Physician First Aid Director 05/22/23 documented as of this encounter
--- OUTSIDE RECORDS SUMMARY | 2024-07-04 04:05 | External Medical Summary | Summary of Care ---
Author Name Unknown Organization [facility] Address [address] [place] [address] Phone [phone] Care Team Providers Care Laminator Name Role Phone Nichole Gonzales PA-C Primary Care Provider [phone] Reason for Visit * Reason Comments Chest Pain * Auth/Cert Specialty Diagnoses / Procedures Referred By Contmolly t Referred To Contact [facility] [address] [place] [address] Phone: [phone] Emergency Medicine [facility] [address] [place] [address] Referral ID Status Reason Start Date Expiration Date Visits Re quested Visits Authorized [id number] Encounter Details Date Type Department Care Team ([facility] Contact Info) Description 05/20/2024 7:49 PM EDT - 05/20/2024 11:20 PM EDT Emergency [facility] Emergency Department ([facility]) [address] [place] [address] Deuce Parmar, DO [address] [place], [place] [id number] Shortness of breath (Primary Dx); Chest pain Discharge Disposition: Home - Self Care Allergies Active Allergy Reactions Criticality Noted Date Comments Naloxone Edema Other,Itching,Rash High 04/14/2021 Penicillins Anaphylaxis High 02/02/2013 anaphylactic Shellfish-Derived Products Edema airway High 04/14/2021 All seafood documented as of this encounter (statuses as of 05/21/2024) Medications Medication Sig Dispensed Refills Start Date [...] 5 days. 5 Tablet 05/20/2024 05/25/2024 Active documented as of this encounter (statuses as of 05/21/2024) Active Problems Problem Noted Date Diagnosed Date [...] as of this encounter (statuses as of 05/21/2024) Resolved Problems Problem Noted Date Diagnosed Date Resolved Date Food insecurity 11/12/2022 05/14/2024 Overview: Per [facility] Protocol Dental infection 03/18/2022 05/22/2023 Morbid obesity due to excess calories 02/23/2021 12/12/2023 Uncomplicated opioid dependence 02/23/2021 03/26/2022 PTSD (post-traumatic stress disorder) 02/23/2021 03/26/2022 documented as of this encounter (statuses as of 05/21/2024) Social History Tobacco Use Types Packs/Day Years [...] Sign Reading Time Taken Comments Blood Pressure 153/92 05/20/2024 10:00 PM EDT Pulse 71 05/20/2024 10:00 PM EDT Temperature 36.2 C (97.2 F) 05/20/2024 7:55 PM ED T Respiratory Rate 16 05/20/2024 10:00 PM EDT Oxygen Saturation 98% 05/20/2024 9:12 PM EDT Inhaled Oxygen Concentration - - Weight 138.8 kg (306 lb) 05/20/2024 7:52 PM EDT Height 210.8 cm (6' 11") 05/20/2024 7:52 PM EDT Body Mass Index 31.23 05/20/2024 7:52 PM EDT documented in this encounter Discharge Instructions * Discharge Instructions* Javy Cortez PA-C - 05/20/2024 11:12 PM EDT You were seen and treated on 05/20/2024 for chest pain, shortness of breath. Chest x-ray he was reassuring. Lab work is reassuring. Symptoms improve. I will prescribe prednisone which is an anti-inflammatory medication/steroid for the next 5 days. Concern for inflammation around your lung tissues for the chest tightness and shortness of breath. I do recommend at least cutting back in smoking until her symptoms improve. Recommend that he follow up with her family physician in the next 5-7 days. Discuss prescription for a DuoNeb machine to help with ongoing shortness of breath. You were provided with a spacer in the ER that he was should attached to your albuterol inhaler to help administer the medication wears to be. Recommend utilize in his every 3 hours as needed for shortness of breath until her symptoms improve. Return back to ER if he was symptoms return, worsen or not managed at home if he develops any new concerns. documented in this encounter Procedure Notes * Richard Montgomery DO - 05/20/2024 7:52 PM EDTAssociated Order(s): EKG REASON FOR STUDY: CP CONCLUSIONS: Sinus rhythm with premature ventricular contraction Otherwise normal ECG When compared with ECG of 26-Jul-2023 18:42, Premature ventricular contractions are now present Ventricular Rate: 80 Atrial Rate: 80 IL Interval: 132 QRS Duration: 94 QT/QTc: 390/449 ms P-R-T [place]: 12 : 40 : 35 degrees documented in this encounter ED Notes * Daniel Hollis RN - 05/20/2024 7:53 PM EDT Pt complaining of chest tightness that started this evening. Pt states that he was sitting on the couch when it started. Pt also states that he had some numbness and tingling in his lips when he had the pain. Pt states that the pain has now resolved. documented in this encounter Miscellaneous Notes * ED Verifier Operator Note - Gely Taylor RN - 05/20/2024 11:19 PM EDT Patient provided with discharge instructions and educated on new prescriptions. Patient verbalized understanding and has no further questions * Pt Handout (on AVS) - Javy Cortez PA-C - 05/20/2024 11:14 PM EDT Images from the original note were not included. [id number] Uncertain Causes of Chest Pain Chest pain can happen for a number of reasons. Sometimes the cause can't be determined. If your condition does not seem serious, and your pain does not appear to be coming from your heart, your healthcare provider may recommend watching it closely. Sometimes the signs of a serious problem take moretime to appear. Many problems not related to your heart can cause chest pain. These include: Musculoskeletal. Costochondritis is an inflammation of the tissues around the ribs that can occur from trauma or overuse injuries, or a strain of the muscles of the chest wall. Respiratory. Pneumonia, collapsed lung (pneumothorax), or inflammation of the lining of the chest and lungs (pleurisy). Gastrointestinal. Esophageal reflux, heartburn, ulcers, or gallbladder disease. Anxiety and panic disorders Nerve compression and inflammation Rare problems such as aortic aneurysm or aortic dissection (a swelling of the large artery coming out of the heart or a tear in the wall of the artery), or pulmonary embolism (a blood clot in the lungs). Home care After your visit, follow these recommendations: Rest today and avoid strenuous activity. Take any prescribed medicine as directed. Be aware of any recurrent chest pain and notice any changes Follow-up care Follow up with your healthcare provider if you don't start to feel better within 24 hours, or as advised. Call 911 Call 911 if any of these occur: A change in the type of pain: if it feels different, becomes more severe, lasts longer, or begins to spread into your shoulder, arm, neck, jaw or back Shortness of breath or increased pain with breathing Weakness, dizziness, or fainting Rapid heartbeat Crushing sensation in your chest Coughing up more than a small amount of blood. When to seek medical advice Call your healthcare provider right away if any of the following occur: Cough with dark colored sputum (phlegm) or small amount of blood Fever of 100.4F (38C) or higher, or as directed by your healthcare provider Swelling, pain or redness in one leg Last Reviewed Date: 09/30/202119999438-2764 [employer]. All rights reserved. This information is not intended as a substitute for professional medical care. Always follow your healthcare professional's instructions. * Pt Handout (on AVS) - Javy Cortez PA-C - 05/20/2024 11:14 PM EDT [id number] Shortness of Breath (Dyspnea) Shortness of breath is the feeling that you can't catch your breath or get enough air. It's also known as dyspnea. Dyspnea can be caused by many different conditions. They include: Acute asthma attack Worsening of chronic lung diseases such as chronic bronchitis and emphysema (COPD) Heart failure. This is when weak heart muscle causes extra fluid to collect in the lungs. Panic attacks or anxiety. Fear can cause rapid breathing (hyperventilation). Pneumonia, or an infection in the lung tissue Exposure to toxic substances, fumes, smoke, or certain medicines Blood clot in the lung (pulmonary embolism). This is often from a piece of blood clot in a deep vein of the leg (deep vein thrombosis) that breaks off and travels to the lungs. Heart attack or heart-related chest pain (angina) Anemia Collapsed lung (pneumothorax) Dehydration Based on your visit today, the exact cause of your shortness of breath is not certain. Your tests don?t show any of the serious causes of dyspnea. You may need other tests to find out if you have a serious problem. It?s important to watch for any new symptoms or symptoms that get worse. Follow up with your healthcare provider as directed. Home care Follow these tips to take care of yourself at home: When your symptoms are better, go back to your usual activities. If you smoke, you should stop. Join a quit-smoking program or ask your healthcare provider for help. Eat a healthy diet and get plenty of sleep. Get regular exercise. Talk with your healthcare provider before starting to exercise, especiallyif you have other medical problems. Discuss with your healthcare provider about cutting down on the amount of caffeine and stimulants you consume. Follow-up care Follow up with your healthcare provider, or as advised. If tests were done, you will be told if your treatment needs to be changed. You can call as directed for the results. If an X-ray was taken, you will be told of any new findings that may affect your care. Call 911 Shortness of breath may be a sign of a serious medical problem. For example, it may be a problem with your heart or lungs. Call 911 if you have worsening shortness of breath or trouble breathing, especially with any of the symptoms below: Shortness of breath or wheezing Confusion or difficulty waking Fainting or loss of consciousness Fast or irregular heartbeat Coughing up blood Unusual pain in your chest, arm, shoulder, neck, or upper back Unusual sweating Feeling of doom Lips or skin looks blue, purple, or cisneros in color Feel dizzy When to seek medical advice Call your healthcare provider right away if any of these occur: Redness, pain or swelling in your leg, arm, or other body area Swelling in both legs or ankles Fast weight gain Weakness Fever of 100.4F (38C) or higher, or as directed by your healthcare provider Last Reviewed Date: 09/30/202119991496-7395 [employer]. All rights reserved. This information is not intended as a substitute for professional medical care. Always follow your healthcare professional's instructions. * ED Verifier Operator Note - Gely Taylor RN - 05/20/2024 8:16 PM EDT Patient reports that he was sitting at home when he developed chest pain and difficulty breathing. States that he was also having numbness and tingling when this happened. Patient reports that this episode only last 10 minutes and then resolved. Denies any symptoms at this time. Denies hx of pulmonary or cardiac problems, reports that he does smoke documented in this encounter Plan of Treatment Upcoming Encounters Date Type Department Care Team (Late st Contact Info) Description 05/27/2024 8:40 AM EDT Office [facility] Wound [facility], [facility] [address] [facility] [place] [address] [place] Bee [facility]PM [facility] [address] 06/03/2024 2:40 PM EDT Nurse Only Ancillary 1st Floor, [place] [facility] [address] [place] [place] [facility] [address] 06/15/2024 12:40 PM EDT Office Visit [facility], [place] [address] [facility] [place] [phone] Nichole Gonzales PA-C [address] [facility] [place] [address] Health Maintenance Due Date Last Done Comments DISCUSS TOBACCO CESSATION (REFER TO SMARTSET #[id number]) 1990 Pneumococcal Vaccine: Pediatrics (0 to 5 [...] Not on filedocumented as of this encounter Procedures Procedure Name Priority Date/Time Associated Diagnosis Comments TROPONIN T, HIGH SENSITIVITY STAT 05/20/2024 10:12 PM EDT EXTRA LIGHT BLUE TOP STAT 05/20/2024 8:57 PM EDT TROPONIN T, HIGH SENSITIVITY STAT 05/20/2024 8:57 PM EDT D-DIMER STAT 05/20/2024 8:57 PM EDT XR CHEST 2 VIEWS STAT 05/20/2024 8:36 PM EDT DIFFERENTIAL, AUTOMATED STAT 05/20/2024 8:04 PM EDT TROPONIN T, HIGH SENSITIVITY STAT 05/20/2024 8:04 PM EDT COMPREHENSIVE METABOLIC PANEL STAT 05/20/2024 8:04 PM EDT CBC STAT 05/20/2024 8:04 PM EDT CBC STAT 05/20/2024 8:04 PM EDT IL ECG ROUTINE ECG W/LEAST 12 LDS I&R ONLY STAT 05/20/2024 7:52 PM EDT Chest pain documented in this encounter Results * TROPONIN T, HIGH SENSITIVITY (05/20/2024 10:12 PM EDT) Pathologist [facility] Troponin T, High Sensitivity <6 <=22 ng/L 05/20/2024 10:47 PM EDT LABORATORY [facility] Blood Venous blood specimen / Unknown Venipuncture / Unknown 05/20/2024 10:12 PM EDT 05/20/2024 10:14 PM EDT Javy Cortez PA-C LAB BLOOD ORDERA BLES Performing Organization Address [facility] Co de Phone Number LABORATORY [address] [address] * D-DIMER (05/20/2024 8:57 PM EDT) [facility] D-Dimer <0.27 <0.50 ug/mL FEU 05/20/2024 9:18 PM EDT LABORATORY [facility] Blood Venous blood specimen / Unknown Venipuncture / Unknown 05/20/2024 8:57 PM EDT 05/20/2024 8:59 PM EDT Narrative LABORATORY [facility] - 05/20/2024 9:18 PM EDT Rheumatoid factor at a level above 50 IU/mL may lead to an overestimation of the D-dimer level. A normal D-dimer result (<0.50 ug/mL FEU) has a negative predictive value of approximately 95% for the exclusion of acute pulmonary embolism (PE) or deep vein thrombosis when there is low or moderate pretest PE probability. Increased D-dimer values are abnormal but do not indicate a specific disease state and the D-dimer increase does not definitively correlate with clinical severity of disease. Javy Cortez PA-C LAB BLOOD ORDERA BLES Performing Organization Address [facility] Co de Phone Number LABORATORY [address] [address] * EXTRA LIGHT BLUE TOP (05/20/2024 8:57 PM EDT) Blood Venous blood specimen / Unknown Venipuncture / Unknown 05/20/2024 8:57 PM EDT 05/20/2024 8:59 PM EDT Brian Aldrich DO LAB BLOOD ORDERABLE S LABORATORY [address] [place] [address] * TROPONIN T, HIGH SENSITIVITY (05/20/2024 8:57 PM EDT) Troponin T, High Sensitivity 12 <=22 ng/L 05/20/2024 9:44 PM EDT LAB[facility]ATORY [facility] Blood Venous blood specimen / Unknown Venipuncture / Unknown 05/20/2024 8:57 PM EDT 05/20/2024 8:59 PM EDT Brian Aldrich LAB BLOOD ORDERABLE S Performing Organization Address [facility] Co de Phone Number LABORATORY [facility] [address] [place] [address] * XR CHEST 2 VIEWS (05/20/2024 8:36 PM EDT) Anatomical Region Laterality Modality Chest Digital Radiogra phy 05/20/2024 8:32 PM EDT Impressions 05/20/2024 9:01 PM EDT IMPRESSION: No acute findings. THIS DOCUMENT HAS BEEN ELECTRONICALLY SIGNED BY MICHAEL DILL MD Narrative 05/20/2024 9:01 PM EDT PROCEDURE INFORMATION: Exam: XR Chest Exam date and time: 05/20/2024 8:32 PM Age: 34 years old Clinical indication: Pain; Chest pressure; Additional info: Chest pain TECHNIQUE: Imaging protocol: Radiologic exam of the chest. Views: 2 views. COMPARISON: DX XR CHEST 2 VIEWS 07/26/2023 7:03 PM FINDINGS: Lungs: Unremarkable. No consolidation. Pleural spaces: Unremarkable. No pleural effusion. No pneumothorax. Heart/Mediastinum: Unremarkable. No cardiomegaly. Bones/joints: Unremarkable. Procedure Note Michael Dill MD - 05/20/2024 PROCEDURE INFORMATION: Exam: XR Chest Exam date and time: 05/20/2024 8:32 PM Age: 34 years old Clinical indication: Pain; Chest pressure; Additional info: Chest pain TECHNIQUE: Imaging protocol: Radiologic exam of the chest. Views: 2 views. COMPARISON: DX XR CHEST 2 VIEWS 07/26/2023 7:03 PM FINDINGS: Lungs: Unremarkable. No consolidation. Pleural spaces: Unremarkable. No pleural effusion. No pneumothorax. Heart/Mediastinum: Unremarkable. No cardiomegaly. Bones/joints: Unremarkable. IMPRESSION IMPRESSION: No acute findings. THIS DOCUMENT HAS BEEN ELECTRONICALLY SIGNED BY MICHAEL DILL MD [facility] (RAD GENE [facility]) * DIFFERENTIAL, AUTOMATED (05/20/2024 8:04 PM EDT) WBC 8.92 4.00 - 10.80 K/uL 05/20/2024 8:21 PM EDT LABORATORY [facility] Neutrophils % 54.1 40.0 - 75.0 % 05/20/2024 8:21 PM EDT LABORATORY [facility] Lymphocytes % 37.4 18.0 - 42.0 % 05/20/2024 8:21 PM EDT LAB[facility]ATORY [facility] Monocytes % 4.9 1.0 - 11.0 % 05/20/2024 8:21 PM EDT LAB[facility]ATORY [facility] Eosinophils % 3.1 0.0 - 6.0 % 05/20/2024 8:21 PM EDT LABORATORY GL Basophils % 0.3 0.0 - 2.0 % 05/20/2024 8:21 PM EDT LABORATORY GL Immature Granulocytes % 0.2 0.0 - 2.0 % 05/20/2024 8:21 PM EDT LABORATORY [facility] Absolute Neutrophils 4.81 1.80 - 7.70 K/uL 05/20/2024 8:21 PM EDT LABORATORY [facility] Absolute Lymphocytes 3.34 1.00 - 4.80 K/ul 05/20/2024 8:21 PM EDT LAB[facility]ATORY [facility] Absolute Monocytes 0.44 0.00 - 1.10 K/uL 05/20/2024 8:21 PM EDT LABORATORY [facility] Absolute Eosinophils 0.28 0.00 - 0.70 K/uL 05/20/2024 8:21 PM EDT LABORATORY GL Absolute Basophils 0.03 0.00 - 0.20 K/uL 05/20/2024 8:21 PM EDT LAB[facility]ATORY [facility] Absolute Immature Granulocytes 0.02 0.00 - 0.20 K/uL 05/20/2024 8:21 PM EDT LAB[facility]ATORY [facility] Blood Venous blood specimen / Unknown Venipuncture / Unknown 05/20/2024 8:04 PM EDT 05/20/2024 8:10 PM EDT Brian Aldrich LAB BLOOD ORDERABLE S LABORATORY [facility] [address] [place] [address] * CBC (05/20/2024 8:04 PM EDT) WBC 8.92 4.00 - 10.80 K/uL 05/20/2024 8:21 PM EDT LAB[facility]ATORY [facility] RBC 5.08 4.50 - 5.25 M/uL 05/20/2024 8:21 PM EDT LAB[facility]ORY [facility] HGB 15.3 14.0 - 16.8 g/dL 05/20/2024 8:21 PM EDT LAB[facility]ORY [facility] HCT 46.1 40.0 - 48.4 % 05/20/2024 8:21 PM EDT LAB[facility]ORY [facility] MCV 90.7 82.0 - 99.5 fL 05/20/2024 8:21 PM EDT LAB[facility]ORY [facility] MCH 30.1 27.0 - 34.0 pg 05/20/2024 8:21 PM EDT LAB[facility]ORY [facility] MCHC 33.2 32.0 - 36.0 g/dL 05/20/2024 8:21 PM EDT LAB[facility]ATORY [facility] RDW 12.4 11.5 - 15.5 % 05/20/2024 8:21 PM EDT LAB[facility]ATORY [facility] PLT 203 140 - 400 K/uL 05/20/2024 8:21 PM EDT LAB[facility]ORY [facility] MPV 11.0 6.6 - 11.1 fL 05/20/2024 8:21 PM EDT LAB[facility]ATORY [facility] nRBCs 0 <=0 /100 WBCs 05/20/2024 8:21 PM EDT LAB[facility]ATORY [facility] Blood Venous blood specimen / Unknown Venipuncture / Unknown 05/20/2024 8:04 PM EDT 05/20/2024 8:10 PM EDT [facility] LAB BLOOD ORDERABLE S Performing Organization Address City/[facility]/ZIP Co de Phone Number LABORATORY [facility] [address] [place] [address] * TROPONIN T, HIGH SENSITIVITY (05/20/2024 8:04 PM EDT) Troponin T, High Sensitivity <6 <=22 ng/L 05/20/2024 10:07 PM EDT LAB[facility]ATORY [facility] Comment:Result may be falsel y decreased due to hemolysis. Blood Venous blood specimen / Unknown Venipuncture / Unknown 05/20/2024 8:04 PM EDT 05/20/2024 8:10 PM EDT Brian [facility] LAB BLOOD ORDERABLE S Performing Organization Address [facility] de Phone Number LABORATORY [address] [address] * COMPREHENSIVE METABOLIC PANEL (05/20/2024 8:04 PM EDT) BUN 11 6 - 20 mg/dL 05/20/2024 8:36 PM EDT LAB[facility]ATORY [facility] Creatinine 0.6 0.6 - 1.2 mg/dL 05/20/2024 8:36 PM EDT LAB[facility] Estimated Glomerular Filtration Rate >90 >=60 mL/min 05/20/2024 8:36 PM EDT LAB[facility] Comment:eGFR is calculated b ased on the CKD-EPI 2020 equation. Sodium 137 135 - 146 mmol/L 05/20/2024 8:36 PM EDT LAB[facility] Potassium 4.5 3.5 - 5.1 mmol/L 05/20/2024 8:36 PM EDT LAB[facility] Comment:Results may be false ly elevated due to hemolysis. Chloride 103 98 - 107 mmol/L 05/20/2024 8:36 PM EDT LAB[facility] CO2 24 22 - 32 mmol/L 05/20/2024 8:36 PM EDT [facility] Anion Gap 10 7 - 15 mmol/L 05/20/2024 8:36 PM EDT [facility] Glucose 90 70 - 120 mg/dL 05/20/2024 8:36 PM EDT [facility] Albumin 4.3 3.8 - 5.0 g/dL 05/20/2024 8:36 PM EDT LAB[facility] AST 31 10 - 50 U/L 05/20/2024 8:36 PM EDT LAB[facility] Comment:Results may be false ly elevated due to hemolysis. Alkaline Phosphatase 68 35 - 130 U/L 05/20/2024 8:36 PM EDT LAB[facility] Bilirubin, Total 0.4 <=1.2 mg/dL 05/20/2024 8:36 PM EDT LAB[facility] Calcium 9.5 8.4 - 10.2 mg/dL 05/20/2024 8:36 PM EDT [facility] Protein 7.7 6.0 - 8.3 g/dL 05/20/2024 8:36 PM EDT LAB[facility] ALT 22 10 - 50 U/L 05/20/2024 8:36 PM EDT LAB[facility] Comment:Results may be false ly elevated due to hemolysis. Blood Venous blood specimen / Unknown Venipuncture / Unknown 05/20/2024 8:04 PM EDT 05/20/2024 8:10 PM EDT Brian Aldrich DO LAB BLOOD ORDERABLE S LABORATORY [facility] [address] [place] [address] * EKG (05/20/2024 7:52 PM EDT) 05/20/2024 7:52 PM EDT Narrative Procedure Note Richard Montgomery DO - 05/20/2024 7:52 PM EDT REASON FOR STUDY: CP CONCLUSIONS: Sinus rhythm with premature ventricular contraction Otherwise normal ECG When compared with ECG of 26-Jul-2023 18:42, Premature ventricular contractions are now present Ventricular Rate: 80 Atrial Rate: 80 IL Interval: 132 QRS Duration: 94 QT/QTc: 390/449 ms P-R-T [place]: 12 : 40 : 35 degrees Brian Aldrich DO EKG [facility] documented in this encounter Visit Diagnoses Diagnosis Shortness of breath- Primary Chest pain Chest pain, unspecified documented in this encounter Administered Medications Inactive Administered Medications - up to 3 most recent administrations Medication Order MAR Action Action Date Dose Rate Site albuterol-ipratropium (Duoneb) inhalation solution 3 mL 3 mL, Nebulizer, ONCE, On Sat05/20/24 at 2145, For 1 dose, 3 mL = 0.5 mg ipratropium/ 2.5 mg albuterol Given 05/20/2024 9:11 PM EDT 3 mL spacer, inhalation (Aerochamber) device 1 Each 1 Each, Inhalation, ONCE, On Sat05/20/24 at 2345, For 1 dose documented in this encounter Active and Recently Administered Medications Times are shown in EDT. Scheduled Medication Order 05/18/2024 05/19/2024 05/20/2024 albuterol-ipratropium (Duoneb) inhalation solution 3 mL (COMPLETED) 3 mL, Nebulizer, ONCE, On Sat05/20/24 at 2145, For 1 dose, 3 mL = 0.5 mg ipratropium/ 2.5 mg albuterol 2111 (Given - Provid er: Ronel Langston, BOND CLERK) spacer, inhalation (Aerochamber) device 1 Each 1 Each, Inhalation, ONCE, On Sat05/20/24 at 2345, For 1 dose documented in this encounter Care Teams Laminator Relationship Specialty Start Date End Date Nichole Gonzales PA-C [place] [address] PCP - General Physician Bull Fiddle Player 05/22/23 documented as of this encounter
--- OUTSIDE RECORDS SUMMARY | 2024-07-04 04:05 | External Medical Summary ---
Author Name Unknown Address Unknown Organization K1F:LABORATORY [facility] - [address] [place] [address] [address] [place] [address] Laboratory Report Ordering Provider Test Date Status RADHA BARCENAS 05/20/2024 20:57:00 Final Rheumatoid factor at a level above 50 [...] definitively correlate with clinical severity of disease. Observation Date Value Abnormality Reference (Units ) Status Fibrin D-dimer FEU [Mass/volume] in Platelet poor plasma by Immunoassay 05/20/2024 20:57:00 <0.27 <0.50 (ug/mL FEU) Final Performing Location LABORATORY [facility] - [address] [facility] [place] [address]
--- OUTSIDE RECORDS SUMMARY | 2024-07-04 04:05 | External Medical Summary ---
Author Name Unknown Address Unknown Organization K1F:LABORATORY [facility] - [address] [place] [address] Ave. Bhumika NOLAN [address] Laboratory Report Ordering Provider Test Date Status ANI FLEMING 05/20/2024 20:04:25 Final Observation Date Value Abnormality Reference (Units ) Status WBC, Total 05/20/2024 20:04:25 8.92 4.00-10.80 (K/uL) Final RBC 05/20/2024 20:04:25 5.08 4.50-5.25 (M/uL) Final Hemoglobin 05/20/2024 20:04:25 15.3 14.0-16.8 (g/dL) Final HCT 05/20/2024 20:04:25 46.1 40.0-48.4 (%) Final MCV 05/20/2024 20:04:25 90.7 82.0-99.5 (fL) Final MCH 05/20/2024 20:04:25 30.1 27.0-34.0 (pg) Final MCHC 05/20/2024 20:04:25 33.2 32.0-36.0 (g/dL) Final RDW 05/20/2024 20:04:25 12.4 11.5-15.5 (%) Final Platelets 05/20/2024 20:04:25 203 140-400 (K/uL) Final MPV 05/20/2024 20:04:25 11.0 6.6-11.1 (fL) Final Nucleated erythrocytes/100 leukocytes [Ratio] in Blood by Automated count 05/20/2024 20:04:25 0 <=0 (/100 WBCs) Final Performing Location [facility] - [address] [facility] kael NOLAN [address]
--- OUTSIDE RECORDS SUMMARY | 2024-07-04 04:05 | External Medical Summary ---
Author Name Unknown Address Unknown Organization K1F:LABORATORY [facility] - [facility] Clarissa N[place] [address] Laboratory Report Ordering Provider Test Date Status RADHA BARCENAS 05/20/2024 22:12:00 Final Observation Date Value Abnormality Reference (Units ) Status Troponin T 05/20/2024 22:12:00 <6 <=22 (ng/ L) Final Performing Location [facility] - [facility] Reynold N[place]AN [address]
--- OUTSIDE RECORDS SUMMARY | 2024-07-04 04:05 | External Medical Summary ---
Author Name Unknown Address Unknown Organization K1F:[facility]ORY [facility] - [facility] Clar[place] N[place] [address] Laboratory Report Ordering Provider Test Date Status ANI FLEMING 05/20/2024 20:04:25 Final Collect NOW Observation Date Value Abnormality Reference (Units ) Status Troponin T 05/20/2024 20:04:25 <6 <=22 (ng/ L) Final Result may be falsely decrea sed due to hemolysis. Performing Location [facility] - [address] [place] [address]
--- OUTSIDE RECORDS SUMMARY | 2024-07-04 04:05 | External Medical Summary | Summary of Care ---
Author Name Unknown Organization [facility] Address [address] [place] [address] Phone [phone] Care Team Providers Care Sporting Goods Salesperson Name Role Phone Nichole Gonzales PA-C Primary Care Provider [phone] Encounter Details Date Type Department Care Team ([facility] st Contact Info) Description 05/21/2024 Population Health External Data Unspecified Department Allergies Active Allergy Reactions Criticality Noted Date [...] 8:40 AM EDT [facility] [address] Vinita Bee, DPM [facility] [address] 06/03/2024 2:40 PM EDT Nurse Only Ancillary 1st Floor, [place] [address] [address] [place], Nurse Paulo [address] [address] 06/15/2024 12:40 PM EDT Office Visit Family Practice, [place] [address] [phone] Nichole Gonzales PA-C [address] [address] Health Maintenance Due Date Last Done Comments DISCUSS TOBACCO CESSATION (REFER TO SMARTSET #3299) 1990 Pneumococcal Vaccine: Pediatrics (0 to 5 [...] filedocumented as of this encounter Care Teams Sporting Goods Salesperson Relationship Specialty Start Date End Date Nichole Gonzales PA-C [address] [phone] PCP - General Physician Dye Can Operator 05/22/23 documented as of this encounter
--- OUTSIDE RECORDS SUMMARY | 2024-07-04 04:05 | External Medical Summary ---
Author Name Unknown Address Unknown Organization K1F:LABORATORY [facility] - [place] N[place]AN [address] Laboratory Report Ordering Provider Test Date Status ANI FLEMING 05/20/2024 20:57:00 Final Collect 1 HOUR Observation Date Value Abnormality Reference (Units ) Status Troponin T 05/20/2024 20:57:00 12 <=22 (ng/ L) Final Performing Location LAB[facility]ORY [facility] - [place] [address]
--- OUTSIDE RECORDS SUMMARY | 2024-07-04 04:06 | External Medical Summary | Summary of Care ---
Author Name Unknown Organization [facility] Address [address] [place] [address] Phone [phone] Care Team Providers Care Cpc Name Role Phone Nichole Gonzales PA-C Primary Care Provider [phone] Reason for Visit * Reason Comments Follow Up B/L Great ToeC/O Casa h B/LLE Finished Clindamycin approximately 2 days ago - was given by PCP for "infected toe" Encounter Details Date Type Department Care Team ([facility] Contact Info) Description 04/22/2024 11:20 AM EDT Office Visit Wound Care, [facility] [address] [place] [address] Vinita Bee, DOMINIC [address] [place] [address] Callus*; Pressure injury of toe of left foot, stage 1; Pressure injury of toe of right foot, stage 1; 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) [L98.499] Allergies Active Allergy Reactions Criticality Noted Date Comments Naloxone Edema Other,Itching,Rash High 04/14/2021 Penicillins Anaphylaxis High 02/02/2013 anaphylactic Shellfish-Derived Products Edema airway High 04/14/2021 All seafood documented as of this encounter (statuses as of 04/22/2024) Medications Medication Sig Dispensed Refills Start Date [...] BEFORE BEDTIME. 54 g 3 06/08/2022 Active Losartan Potassium 25 MG Oral Tablet (Cozaar)Indications :Hypertension goal BP (blood pressure) < 140/90 TAKE 2 TABLETS BY MOUTH EVERY MORNING 180 Tablet 3 05/22/2023 Active Triamcinolone Acetonide 0.1 % External Cream (Aristocort)Indicat ions:Atopic dermatitis, unspecified type Apply topically to affected area 2 times a day. To affected area. 45 g 2 12/12/2023 Active Polyethylene Glycol 3350 17 GM/SCOOP Oral Powder (MiraLax)Indication s:Constipation, unspecified constipation type Take 17 g by mouth as needed for Constipation. Dissolve one heaping tablespoon in 8 ounces of water or juice. 850 g 5 12/12/2023 Active Lactulose 10 GM/15ML Oral Solution (Constulose)Indicat ions:Constipation, unspecified constipation type TAKE 30 ML BY MOUTH IN THE MORNING AND 30 ML BEFORE BEDTIME. 946 mL 1 03/11/2024 Active Clindamycin HCl 300 MG Oral Capsule Take 1 Capsule by mouth in the morning and 1 Capsule at noon and 1 Capsule before bedtime. 30 Capsule 04/14/2024 Active Additional Information Patient not taking.Reported on 04/22/2024 documented as of this encounter (statuses as of 04/22/2024) Active Problems Problem Noted Date Diagnosed Date [...] as of this encounter (statuses as of 04/22/2024) Resolved Problems Problem Noted Date Diagnosed Date Resolved Date Dental infection 03/18/2022 05/22/2023 Morbid obesity due to excess calories 02/23/2021 12/12/2023 Uncomplicated opioid dependence 02/23/2021 03/26/2022 PTSD (post-traumatic stress disorder) 02/23/2021 03/26/2022 documented as of this encounter (statuses as of 04/22/2024) Social History Tobacco Use Types Packs/Day Years [...] as of this encounter Progress Notes * Amena Camilo, DOMINIC - 04/22/2024 1:21 PM EDT Images from the original note were not included. WOUND OUTPATIENT FOLLOW-UP NOTE Wesley Moise 1990 HPI: Wesley Moise is a 33-year-old male being seen today for follow-up of bilateral hallux IPJ callosities. Last seen for this 02/26/24, at which time patient's calluses were debrided. Patient relates dressing were not performed. Denies redness, swelling, excess warmth, increased drainage, pain, malodor. Denies fever, chills, nausea, vomiting, SOB, chest pain, calf pain. Patient relates he has not used a pumice stone at all since his last visit. Patient denies moisturizing daily. Current dressing: See Wound Assessment Dressing change frequency: N/A RLE Compression: LLE Compression: RLE Wt Bearing Offloading: LLE Wt Bearing Offloading: RLE Non-Wt Bearing Offloading: LLE Non-Wt Bearing Offloading: Offloading Surface for Bed: Offloading Surface for Chair / Wheelchair: ROS: ROS was negative other than stated above. Tobacco History: Social History Tobacco Use Smoking Status Every Day Current packs/day: 1.00 Types: Cigarettes Smokeless Tobacco Never WOUND ASSESSMENT: Wound Grade/Stage/Type (if changed): Wound/Ulcer Etiology: bilateral pressure ulcerations Alteration in Skin Integrity Anterior;Right Toe (Active) Clinical Image 04/22/24 1236 Wound Length (cm) 1.7 cm 04/22/24 1236 Wound Width (cm) 1.4 cm (Post debridement ) 04/22/24 1236 Drainage serosanguinous, mild 04/22/24 1146 Odor (after cleansing wound) No 04/22/24 1146 Cassandra-Wound (Surrounding Skin) Callus 04/22/24 1146 Wound Surface Area (cm^2) 2.38 cm^2 04/22/24 1236 Alteration in Skin Integrity Anterior;Left Toe (Active) Clinical Image 04/22/24 1235 Wound Length (cm) 1.8 cm 04/22/24 1235 Wound Width (cm) 1.1 cm 04/22/24 1235 Wound Depth (cm) -- (Post debridement) 04/22/24 1235 Drainage serosanguinous, mild 04/22/24 1144 Odor (after cleansing wound) No 04/22/24 1144 Cassandra-Wound (Surrounding Skin) Callus 04/22/24 1144 Wound Surface Area (cm^2) 1.98 cm^2 04/22/24 1235 Wound/Ulcer Debridement Time Out: Correct Patient, Correct Site/Side/Position, Correct Procedure, Complete/Current Consent and Safety Issue Review Wound location: bilateral hallux IPJ Character of Wound/Ulcer Pre Debridement: Deteriorated Lidocaine: none Indication for Debridement: Abnormal Wound Edge, Abnormal Wound Base, and Slough, Exudate Instrument Used: Scalpel Tissue and/or Material Removed: Non-Viable, Callus, Abnormal Edge, Slough, Exudate, and Necrotic Bleeding: Minimal Bleeding Controlled with: Pressure and Silver Nitrate Specimen Taken: None Type of Debridement: Non-Excisional (Open Wound): Skin, Dermis Level of Debridement: Skin Dermis Negative Pressure Wound Vacuum: No Bioengineered Tissue/Dermal Substrate Applied: No Character of Wound/Ulcer Post Debridement: Improved Total Post Debridement Measurement: Length R: 1.7 Width 1.4 Depth 2.38 cm2, L: 1.8 x 1.1 cm, 1.98 cm2 Procedure Tolerated: Yes Non OR time Out: [...] Yes Prophylactic antibiotic timing confirmed - N/A ASSESSMENT/PLAN: 1. (L84) Callus (primary encounter diagnosis) (L89.891) Pressure injury of toe of left foot, stage 1 (L89.891) Pressure injury of toe of right foot, stage 1 (L98.499) 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) [L98.499] No orders found. Wesley Moise is a 33-year-old male seen for bilateral IPJ calluses. -Pt seen and evaluated with with all questions and concerns addressed. -No signs of infection. No antibiotics indicated. -Weightbearing status: as tolerated to BLLE. -Debridement was indicated and was performed. -Dressing changes: daily betadine DSD. -F/U 4 weeks - patient told to offload as well and dispensed silicone sleeves for offloadinng. Amenable to the above and will purchase betadine OTC. -Educated patient on systemic signs of infection (nausea, vomiting, fever, chills, SOB, chest pain)and local signs of wound infection (redness, swelling, pain, malodor, increased drainage, excess warmth). Instructed patient to call WCC or to go to ED with any concern for infection. If patient's pain level is greater than 4 please address below: Jodi Camilo DPM 04/22/2024 I have discussed the patient's management with the resident/fellow physician and agree with the note. Please refer to the documented findings and plan of care. This patient's visit today consisted ofan evaluation and procedure. I was not present for the history and exam, but was present for the quigley and critical portions of the procedure. Vinita Bee DPM documented in this encounter Nursing Notes * Jennifer Portillo CMA - 04/22/2024 2:13 PM EDT Images from the original note were not included. Treatment done as per Dr. Bee's orders Post debridement pictures taken Betadine to wound, DSD and toe sleeve applied * Jennifer Portillo CMA - 04/22/2024 11:36 AM EDT Images from the original note were not included. Chief Complaint Patient presents with Follow Up B/L Great Toe C/O Rash B/LLE Finished Clindamycin approximately 2 days ago - was given by PCP for "infected toe" Patient was instructed to not get up on the exam table/exam chair until directed and assisted by their provider; patient is to remain seated in the chair/ wheelchair/ exam table/ exam chair for fall prevention and safety reasons. Patient is aware to have assistance to step down off exam table/exam chair with personnel. Patient voiced full comprehension of instructions. B/LLE slides and socks removed Wounds then feet washed with soap and water and towel dried Patient tolerated well documented in this encounter Plan of Treatment Upcoming Encounters Date Type Department Care Team (Late st Contact Info) Description 04/27/2024 2:20 PM EDT [facility] [address] [phone] Carly Mckeon MD [address] [address] 05/20/2024 10:40 AM EDT [facility] [address] Vinita Bee, DPM [facility] [address] 06/15/2024 12:40 PM EDT Office Visit Family [facility] [place] [address] [facility] [place] [phone] Nichole Gonzales PA-C [facility] [address] Health Maintenance Due Date Last Done Comments DISCUSS TOBACCO CESSATION (REFER TO SMARTSET #1147) 1990 Pneumococcal Vaccine: Pediatrics (0 to 5 Years) and At-Risk Patients (6 to 64 Years) (1 of 2 - PCV) 1995 DTaP,Tdap,and Td Vaccines (1 - Tdap) 2008 Hepatitis B Vaccine (1 of 3 - 19+ 3-dose series) 2008 *SPIROMETRY ONCE FOR ASTHMA-ADULT 08/23/2022 COVID-19 Vaccine (1 - 2022- season) 2023 Depression Screening 10/09/2023 10/09/2022 Influenza Vaccine (FLU shot) (#1) 2024 GFR 12/29/2024 12/30/2023, 0311/2023, 02/28/2023, Additional history exists HbA1c 12/29/2024 12/30/2023, 03/23/2022 Albumin/Creatinine Ratio 12/29/2026 12/30/2023 HPV (Gardasil) Vaccine Aged Out No lo nger eligible based on patient's age to complete this topic MENINGOCOCCAL (MENACTRA/MENVEO) Aged Out No longer eligible based on patient's age to complete this topic documented as of this encounter Medical Devices Not on filedocumented as of this encounter Visit Diagnoses Diagnosis Callus- Primary Corns and callosities Pressure injury of toe of left foot, stage 1 Pressure injury of toe of right foot, stage 1 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) [L98.499] documented in this encounter Care Teams Cpc Relationship Specialty Start Date End Date Nichole Gonzales PA-C [address] [phone] PCP - General Physician Vat Washer 05/22/23 documented as of this encounter
--- OUTSIDE RECORDS SUMMARY | 2024-07-04 04:06 | External Medical Summary ---
Author Name Unknown Address Unknown Organization K1F:[facility] - [address] [place] [address] Laboratory Report Ordering Provider Test Date Status BERNADETTELORENAFADIA 05/08/2024 13:07:48 Final Observation Date Value Abnormality Reference (Units ) Status Lipase 05/08/2024 13:07:48 12 Below low normal 13- 60 (U/L) Final Performing Location LAB[facility]ORY [facility] - [address] [place] [address]
--- OUTSIDE RECORDS SUMMARY | 2024-07-04 04:06 | External Medical Summary | Summary of Care ---
Author Name Unknown Organization [facility] Address [address] [place] [address] Phone [phone] Care Team Providers Care Direct Mail Coordinator Name Role Phone Nichole Gonzales PA-C Primary Care Provider [phone] Reason for Visit * Reason Comments Follow Up B/L Great ToeC/O Casa h B/LLE Finished Clindamycin approximately 2 days ago - was given by PCP for "infected toe" Encounter Details Date Type Department Care Team ([facility] Contact Info) Description 04/22/2024 11:20 AM EDT Office Visit Wound Care, [facility] [address] [place] [address] Vinita Bee, DOMINIC [address] [place] [address] Callus*; Pressure injury of toe of left [...] pictures taken Betadine to wound, DSD and silicone toe sleeve applied * Jennifer Portillo CMA [...] Description 04/27/2024 2:20 PM EDT Office Visit [facility] [address] [phone] Carly Mckeon MD [address] [address] 05/20/2024 10:40 AM EDT Office Visit Wound Care, [facility] [place] [address] Vinita Bee, DPM [address] [facility] [address] 06/15/2024 12:40 PM EDT Office Visit Family [facility] [place] [address] [facility] [place] [phone] Nichole Gonzales PA-C [address] [facility] [address] Health Maintenance Due Date Last Done Comments DISCUSS TOBACCO CESSATION (REFER TO SMARTSET #9803) 1990 Pneumococcal Vaccine: Pediatrics (0 to 5 [...] (FLU shot) (#1) 2024 GFR 12/29/2024 12/30/2023, 03/11/2023, 02/28/2023, Additional history exists HbA1c 12/29/2024 12/30/2023, [...] [L98.499] documented in this encounter Care Teams Direct Mail Coordinator Relationship Specialty Start Date End Date Nichole Gonzales PA-C [address] [phone] PCP - General Physician Maintenance Controller 05/22/23 documented as of this encounter
--- OUTSIDE RECORDS SUMMARY | 2024-07-04 04:06 | External Medical Summary | Summary of Care ---
Author Name Unknown Organization [facility] Address [address] [place] [address] Phone [phone] Care Team Providers Care Bale Piler Name Role Phone Nichole Gonzales PA-C Primary Care Provider [phone] Reason for Visit * Reason Comments Follow Up Bilateral great toe Encounter Details Date Type Department Care Team ([facility] st Contact Info) Description 02/26/2024 11:40 AM EDT Office Visit Wound Care, [facility] [address] [place] [address] Vinita Bee DPM [address] [place] [address] Callus*; Pressure injury of toe of left foot, stage 1; Pressure injury of toe of right foot, stage 1 Allergies Active Allergy Reactions Criticality Noted Date Comments Naloxone Edema Other,Itching,Rash High 04/14/2021 Penicillins Anaphylaxis High 02/02/2013 anaphylactic Shellfish-Derived Products Edema airway High 04/14/2021 All seafood documented as of this encounter (statuses as of 02/26/2024) Medications Medication Sig Dispensed Refills Start Date [...] 30 ML BEFORE BEDTIME. 946 mL 1 02/03/2024 Active Clindamycin HCl 300 MG Oral Capsule Take 1 Capsule by mouth in the morning and 1 Capsule at noon and 1 Capsule before bedtime. 30 Capsule 02/26/2024 Active documented as of this encounter (statuses as of 02/26/2024) Active Problems Problem Noted Date Diagnosed Date [...] as of this encounter (statuses as of 02/26/2024) Resolved Problems Problem Noted Date Diagnosed Date Resolved Date Dental infection 03/18/2022 05/22/2023 Morbid obesity due to excess calories 02/23/2021 12/12/2023 Uncomplicated opioid dependence 02/23/2021 03/26/2022 PTSD (post-traumatic stress disorder) 02/23/2021 03/26/2022 documented as of this encounter (statuses as of 02/26/2024) Social History Tobacco Use Types Packs/Day Years [...] Progress Notes * Vinita Bee DPM - 02/26/2024 12:07 PM EDT Images from the original note were not included. Followup Examination Patient: Wesley Moise Allergies: Naloxone, Penicillins, and Shellfish-derived products Chief Complaint: Chief Complaint Patient presents with Follow Up Bilateral great toe History of Present Illness Wesley Moise is a 33 year old male here today for Charli great toes. Pt was previously seen in Podiatry for the same issue last year. Most recently seen by Dr. Ordaz in Nov. At that time he was to use a pumice stone and moisturize the areas. He reports he is using the pumice stone but not moisturizing. 02/26/2024: Pt here from follow up charli IPJ wounds. Cancelled last appointment due to work conflict. Is on his feet for long hours. He is complaining of increased pain and drainage to the right great toe. Constitutional There were no vitals taken for [...] Social Determinants of Health Financial Resource Strain: Not on file Food Insecurity: Food Insecurity Present (05/19/2023) Hunger Vital Sign Worried About Running Out of Food in the Last Year: Sometimes true Ran Out of Food in the Last Year: Sometimes true Transportation Needs: Not on file Physical Activity: Not on file Stress: Not on file Social Connections: Not on file Intimate Partner Violence: Not on file Housing Stability: Not on file Current Meds Current Outpatient Medications Medication Sig Dispense Refill Buprenorphine HCl 8 MG Sublingual Tablet Sublingual (Subutex) TAKE 1 SUBLINGUAL TABLET TWICE DAILY Albuterol Sulfate HFA 108 (90 Base) MCG/ACT Inhalation Aerosol Solution INHALE 2 PUFFS BY MOUTH IN THE MORNING, AT NOON, IN THE EVENING, AND BEFORE BEDTIME. 54 g 3 Losartan Potassium 25 MG Oral Tablet (Cozaar) TAKE 2 TABLETS BY MOUTH EVERY MORNING 180 Tablet 3 Triamcinolone Acetonide 0.1 % External Cream (Aristocort) Apply topically to affected area 2 times a day. To affected area. 45 g 2 Polyethylene Glycol 3350 17 GM/SCOOP Oral Powder (MiraLax) Take 17 g by mouth as needed for Constipation. Dissolve one heaping tablespoon in 8 ounces of water or juice. 850 g 5 Lactulose 10 GM/15ML Oral Solution (Constulose) TAKE 30 ML BY MOUTH IN THE MORNING AND 30 ML BEFOREBEDTIME. 946 mL 1 No current facility-administered medications for this visit. WOUND ASSESSMENT Wound Grade/Stage/Type (if changed): Wound/Ulcer Etiology: Pressure Ulcer: I Alteration in Skin Integrity Anterior;Right Toe (Active) Clinical Image 02/26/24 1205 Wound Length (cm) 4.5 cm 02/26/24 1205 Wound Width (cm) 3.5 cm 02/26/24 1205 Wound Depth (cm) 0.5 cm 02/26/24 1205 Drainage none 02/26/24 1205 Odor (after cleansing wound) No 02/26/24 1205 Cassandra-Wound (Surrounding Skin) Callus 02/26/24 1205 Wound Surface Area (cm^2) 15.75 cm^2 02/26/24 1205 Wound Volume (cm^3) 7.875 cm^3 02/26/24 1205 Alteration in Skin Integrity Anterior;Left Toe (Active) Clinical Image 02/26/24 1203 Wound Length (cm) 4 cm 02/26/24 1203 Wound Width (cm) 3 cm 02/26/24 1203 Wound Depth (cm) 0.5 cm 02/26/24 1203 Drainage none 02/26/24 1203 Odor (after cleansing wound) No 02/26/24 1203 Cassandra-Wound (Surrounding Skin) Callus 02/26/24 1203 Wound Surface Area (cm^2) 12 cm^2 02/26/24 1203 Wound Volume (cm^3) 6 cm^3 02/26/24 1203 Wound Profile Wound Type: Pressure Ulcer (17) Wound Location: Charli hallux Pressure Wound: Stage I Diabetic Wound/Lower [...] Debridement: Improved Total Post Debridement Measurement: Length 4.5 Width 3.5 Depth 0.1 cm Total cm2 15.75 (RIGHT) and (LEFT) Length [id number] (total 12) Procedure Tolerated: Yes Non OR time Out: [...] Wounds debrided to healthy bleeding tissue - Rx for PO abx - Xrays ordered for today. - I did reiterate to the pt that these are caused by pressure - For now- betadine and dsd - Follow up in 3-4 weeks. Vinita Bee DPM 02/26/2024 documented in this encounter Nursing Notes * Verónica Mendoza LPN - 02/26/2024 12:00 PM EDT Assisted to sit on exam seating aware to not rise unassisted for his safety. Bilateral great toes washed with soap and water towel dried post removal of dressings tolerated well. Photo and measurements taken. Will alert provider of ready for care. Treatment will be provided post exam per order. Provided Betadine - DSD - secured . Wesley assisted with socks shoes - and is aware to call with any concerns. documented in this encounter Plan of Treatment Upcoming Encounters Date Type Department Care Team (Late st Contact Info) Description 03/18/2024 11:40 AM EDT Office Visit Wound Care, [address] [place] [address] Vinita Bee, DPM [address] [facility] [place] [address] 06/15/2024 12:40 PM EDT Office Visit [facility] [address] [place] [phone] Nichole Gonzales PA-C [address] [address] Scheduled Orders Name Type Priority Associated Diagnoses Orde r Schedule XR FOOT 3 OR MORE VIEWS Medical Imaging Routine Callus Pressure injury of toe of left foot, stage 1 Pressure injury of toe of right foot, stage 1 Ordered: 02/26/2024 Health Maintenance Due Date Last Done Comments DISCUSS TOBACCO CESSATION (REFER TO SMARTSET #3074) 1989 Pneumococcal Vaccine: Pediatrics (0 to 5 Years) and At-Risk Patients (6 to 64 Years) (1 of 2 - PCV) 1995 DTaP,Tdap,and Td Vaccines (1 - Tdap) 2008 Hepatitis B (1 of 3 - 19+ 3-dose series) 2008 *SPIROMETRY ONCE FOR ASTHMA-ADULT 08/23/2022 COVID-19 Vaccine ( - 2022- season) 2023 Depression Screening 10/09/2023 10/09/2022 Influenza Vaccine (FLU shot) (Season Ended) 2024 GFR 12/29/2024 12/30/2023, 03/11/2023, 02/28/2023, Additional history exists HbA1c 12/29/2024 12/30/2023, 03/23/2022 Albumin/Creatinine Ratio 12/29/2026 12/30/2023 GARDASIL-HPV IMMUNIZATION SERIES Aged Out No longer eligible based on [...] 1 documented in this encounter Care Teams Bale Piler Relationship Specialty Start Date End Date Nichole Gonzales PA-C [address] [phone] PCP - General Physician Well Logging Captain 05/22/23 documented as of this encounter
--- OUTSIDE RECORDS SUMMARY | 2024-07-04 04:06 | External Medical Summary | Summary of Care ---
Author Name Unknown Organization [facility] Address [address] [place] [address] Phone [phone] Care Team Providers Care Technician Submarine Cable Equipment Name Role Phone Kristian Gonzales PA-C Primary Care Provider [phone] Reason for Visit * Reason Comments eRx-Medication Refill Encounter Details Date Type Department Care Team ([facility] st Contact Info) Description 04/27/2024 Refill [facility] 21 [facility] [place] [phone] Kristian Gonzales PA-C [facility] [place], [place] [phone] Constipation, unspecified constipation type Allergies Active Allergy Reactions Criticality Noted Date Comments Naloxone Edema Other,Itching,Rash High 04/14/2021 Penicillins Anaphylaxis High 02/02/2013 anaphylactic Shellfish-Derived Products Edema airway High 04/14/2021 All seafood documented as of this encounter (statuses as of 04/28/2024) Medications Medication Sig Dispensed Refills Start Date [...] 12/12/2023 Active Lactulose 10 GM/15ML Oral Solution (Constulose)Indic ations:Constipati on, unspecified constipation type TAKE 30 ML BY MOUTH IN THE MORNING AND 30 ML BEFORE BEDTIME. 946 mL 1 04/28/2024 Active Debrox 6.5 % Otic Solution (Carbamide Peroxide)Indicati ons:Impacted cerumen of left ear Administer 4 Drops into the left ear in the morning and 4 Drops before bedtime. Do all this for 5 days. Fill ear canal and insert cotton plug. Remove plug after 15 to 30 minutes.. 15 mL 04/27/2024 4 Active Lactulose 10 GM/15ML Oral Solution (Constulose)Indic ations:Constipati on, unspecified constipation type TAKE 30 ML BY MOUTH IN THE MORNING AND 30 ML BEFORE BEDTIME. 946 mL 1 03/11/2024 4 Discontinued documented as of this encounter (statuses as of 04/28/2024) Active Problems Problem Noted Date Diagnosed Date [...] as of this encounter (statuses as of 04/28/2024) Resolved Problems Problem Noted Date Diagnosed Date Resolved Date Dental infection 03/18/2022 05/22/2023 Morbid obesity due to excess calories 02/23/2021 12/12/2023 Uncomplicated opioid dependence 02/23/2021 03/26/2022 PTSD (post-traumatic stress disorder) 02/23/2021 03/26/2022 documented as of this encounter (statuses as of 04/28/2024) Social History Tobacco Use Types Packs/Day Years [...] encounter Miscellaneous Notes * Telephone Encounter - Kristian Gonzales PA-C - 04/28/2024 10:24 PM EDTSigned Prescriptions: Disp Refills Lactulose 10 GM/15ML Oral Solution (Constu*946 mL 1 Sig: TAKE 30 ML BY MOUTH IN THE MORNING AND 30 ML BEFORE BEDTIME. Authorizing Provider: KRISTIAN GONZALES * Telephone Encounter - Diane Romero [facility] - 04/28/2024 10:50 AM EDTPending Prescriptions: Disp Refills Lactulose 10 GM/15ML Oral Solution [Pharma*946 mL 1 Sig: TAKE 30 ML BY MOUTH IN THE MORNING AND 30 ML BEFORE BEDTIME. * Telephone Encounter - Diane Romero [facility] - 04/28/2024 10:50 AM EDT Pending Prescriptions: Disp Refills Lactulose 10 GM/15ML Oral Solution [Pharma*946 mL 1 Sig: TAKE 30 ML BY MOUTH IN THE MORNING AND 30 ML BEFORE BEDTIME. 01/03/2024 (in office), Visit date not found (telemedicine) 06/15/2024 If no future appointments scheduled, and last appointment is greater than a year ago, please schedule patient for a follow-up appointment Last date the medication was ordered: 03/11/24 Pharmacy: [id number] [place] Is this request for a controlled substance?No Urine Drug Screen:No results found for this or any previous visit. Patient Phone Numbers Labs: Lab Results Component Value Date/Time CREAT 0.8 12/30/2023 08:58 AM CREAT 1.0 07/05/2016 10:21 AM POTASSIUM 4.4 12/30/2023 08:58 AM POTASSIUM 3.9 07/05/2016 10:21 AM TSH 5.03 (H) 12/30/2023 08:58 AM LDLCALC 88 12/30/2023 08:58 AM ALT 24 12/30/2023 08:58 AM ALT 23 07/05/2016 10:21 AM HGBA1C 5.9 (H) 12/30/2023 08:58 AM documented in this encounter Plan of Treatment Upcoming Encounters Date Type Department Care Team (Late st Contact Info) Description 04/30/2024 12:40 PM EDT Nurse Only Ancillary 1st Floor, [address] [place] [address] [place], [facility] Fp [facility] [address] 05/20/2024 10:40 AM EDT Office [facility], [facility] [address] Vinita Bee, [facility]OM [facility] [address] 06/15/2024 12:40 PM EDT Office Visit [facility], [place] [facility] [phone] Kristian Gonzales PA-C [facility] [place] [phone] Health Maintenance Due Date Last Done Comments DISCUSS TOBACCO CESSATION (REFER TO SMARTSET #3874) 1989 Pneumococcal Vaccine: Pediatrics (0 to 5 Years) and At-Risk Patients (6 to 64 Years) (1 of 2 - PCV) 1995 DTaP,Tdap,and Td Vaccines (1 - Tdap) 2008 Hepatitis B Vaccine (1 of 3 - 19+ 3-dose series) 2008 *SPIROMETRY ONCE FOR ASTHMA-ADULT 08/23/2022 COVID-19 Vaccine (1 - 2022- season) 2023 Influenza Vaccine (FLU shot) (#1) 2024 GFR 12/29/2024 12/30/2023, 11/29, 02/28/2023, Additional history exists HbA1c 12/29/2024 12/30/2023, 03/23/2022 Depression Screening 04/27/2025 04/27/2024 Albumin/Creatinine Ratio 12/29/2026 12/30/2023 HIV Screening Completed 12/30/2023 Hepatitis C Screening Completed 12/30/2023 , 12/30/2023, 12/30/2023 HPV (Gardasil) Vaccine Aged Out No lo nger eligible based on patient's age to complete this topic MENINGOCOCCAL (MENACTRA/MENVEO) Aged Out No longer eligible based on patient's age to complete this topic documented as of this encounter Medical Devices Not on filedocumented as of this encounter Visit Diagnoses Diagnosis Constipation, unspecified constipation type documented in this encounter Care Teams Technician Submarine Cable Equipment Relationship Specialty Start Date End Date Kristian Gonzales PA-C [address] [phone] PCP - General Physician District Ranger 05/22/23 documented as of this encounter
--- OUTSIDE RECORDS SUMMARY | 2024-07-04 04:06 | External Medical Summary ---
Author Name Unknown Address Unknown Organization K1F:[facility] - [address] [place] [address] Laboratory Report Ordering Provider Test Date Status RUTHIE FLEMING 05/08/2024 13:07:48 Final Observation Date Value Abnormality Reference (Units ) Status Lactic Acid, Whole Blood 05/08/2024 13:07:48 1.2 0.4-2.0 (mmol/L) Final Performing Location [facility] - [address] [place] [address]
--- OUTSIDE RECORDS SUMMARY | 2024-07-04 04:06 | External Medical Summary | Summary of Care ---
Author Name Unknown Organization [facility] Address [address] [place] [address] Phone [phone] Care Team Providers Care Assignment Officer Name Role Phone Nichole Gonzales PA-C Primary Care Provider [phone] Reason for Visit * Reason Comments Follow Up Bilateral great toe Encounter Details Date Type Department Care Team ([facility] st Contact Info) Description 02/26/2024 11:40 AM EDT Office Visit Wound Care, [facility] [address] [place] [address] Vinita Bee DPM [address] [place] [address] Callus*; Pressure injury of toe of left [...] Total cm2 15.75 (RIGHT) and (LEFT) Length 2cxR0V7.1 (total 12) Procedure Tolerated: Yes Non OR [...] 11:40 AM EDT Office Visit Wound Care, [address] [place] [address] Vinita Bee, DPM [address] [facility] [place] [address] 06/15/2024 12:40 PM EDT Office Visit [facility] [address] [place] [address] [phone] Nichole Gonzales PA-C [address] [place] [address] [address] Scheduled Orders Name Type Priority Associated Diagnoses Orde r Schedule XR FOOT 3 OR MORE VIEWS Medical Imaging Routine Callus Pressure injury of toe of left foot, stage 1 Pressure injury of toe of right foot, stage 1 Ordered: 02/26/2024 Health Maintenance Due Date Last Done Comments DISCUSS TOBACCO CESSATION (REFER TO SMARTSET #3525) 1989 Pneumococcal Vaccine: Pediatrics (0 to 5 [...] 1 documented in this encounter Care Teams Assignment Officer Relationship Specialty Start Date End Date Nichole Gonzales PA-C [address] [place] [address] [phone] PCP - General Physician Foundry Hand 05/22/23 documented as of this encounter
--- OUTSIDE RECORDS SUMMARY | 2024-07-04 04:06 | External Medical Summary ---
Author Name Unknown Address Unknown Organization K1F[facility] [address] [facility] [place] [address] Laboratory Report Ordering Provider Test Date Status RUTHIE FLEMING 05/08/2024 13:07:48 Final Observation Date Value Abnormality Reference (Units ) Status BUN 05/08/2024 13:07:48 10 6-20 (mg/dL) Final Creatinine 05/08/2024 13:07:48 0.7 0.6-1.2 (mg/dL) Final Glomerular filtration rate/1.73 sq M.predicted [Volume Rate/Area] in Serum, Plasma or Blood by Creatinine-based formula (CKD-EPI) 05/08/2024 13:07:48 >90 >=60 (mL/min) Final eGFR is calculated based on the CKD-EPI 2020 equation. Sodium 05/08/2024 13:07:48 140 135-146 (m mol/L) Final Potassium 05/08/2024 13:07:48 4.1 3.5-5.1 (m mol/L) Final Cl 05/08/2024 13:07:48 102 98-107 (mm ol/L) Final CO2 05/08/2024 13:07:48 28 22-32 (mmo l/L) Final Anion gap 05/08/2024 13:07:48 10 7-15 (mmol /L) Final Glucose 05/08/2024 13:07:48 145 Above high normal 70 -120 (mg/dL) Final Albumin 05/08/2024 13:07:48 4.4 3.8-5.0 (g /dL) Final AST (Aspartate aminotransferase) 05/08/2024 13:07:48 17 10-50 (U/L) Fin al Alk Phos 05/08/2024 13:07:48 71 35-130 (U/ L) Final Bilirubin, Total 05/08/2024 13:07:48 0.5 <=1 .2 (mg/dL) Final Calcium 05/08/2024 13:07:48 9.6 8.4-10.2 ( mg/dL) Final Protein 05/08/2024 13:07:48 7.9 6.0-8.3 (g /dL) Final ALT (Alanine aminotransferase) 05/08/2024 13:07:48 20 10-50 (U/L) Alvarez carlson Performing Location [facility] - [address] [place], [place] [address]la[address] [place]. [place] [address]
--- OUTSIDE RECORDS SUMMARY | 2024-07-04 04:06 | External Medical Summary | Summary of Care ---
Author Name Unknown Organization [facility] Address [address] [place] [address] Phone [phone] Care Team Providers Care Surgical Services Tech Name Role Phone Nichole Gonzales PA-C Primary Care Provider [phone] Reason for Visit * Reason Onset Date Comments Advice 01/23/2024 Encounter Details Date Type Department Care Team ([facility] st Contact Info) Description 01/23/2024 Telephone Wound Care, [facility] [address] [place] [address] Vinita Bee DPM [address] [place] [address] Advice Allergies Active Allergy Reactions Criticality Noted Date Comments Naloxone Edema Other,Itching,Rash High 04/14/2021 Penicillins Anaphylaxis High 02/02/2013 anaphylactic Shellfish-Derived Products Edema airway High 04/14/2021 All seafood documented as of this encounter (statuses as of 04/23/2024) Medications Medication Sig Dispensed Refills Start Date [...] or juice. 850 g 5 12/12/2023 Active documented as of this encounter (statuses as of 04/23/2024) Active Problems Problem Noted Date Diagnosed Date [...] as of this encounter (statuses as of 04/23/2024) Resolved Problems Problem Noted Date Diagnosed Date Resolved Date Dental infection 03/18/2022 05/22/2023 Morbid obesity due to excess calories 02/23/2021 12/12/2023 Uncomplicated opioid dependence 02/23/2021 03/26/2022 PTSD (post-traumatic stress disorder) 02/23/2021 03/26/2022 documented as of this encounter (statuses as of 04/23/2024) Social History Tobacco Use Types Packs/Day Years [...] encounter Miscellaneous Notes * Telephone Encounter - Verónica Mendoza LPN - 01/23/2024 12:37 PM EDT Return call for Wesley to let him know it is fine if Betadine is not completely dry before placing gauze dressing in place. I also let him know to call with any further questions. * Telephone Encounter - Jessica Mendoza OSA - 01/23/2024 10:14 AM EDT Dereck, Pt had a question regarding his toes. He is asking if he should let his toes pollock first before re-wrapping them. Please contact pt at [phone]. Thank you, PRATIMA Tovar documented in this encounter Plan of Treatment Upcoming Encounters Date Type Department Care Team (Late st Contact Info) Description 04/27/2024 2:20 PM EDT Office Visit [facility] [place] [phone] Carly Mckeon MD [place] [phone] 05/20/2024 10:40 AM EDT Office Visit Wound Care, [facility] [place] [address] Vinita Bee, DPM [facility] [place] [address] 06/15/2024 12:40 PM EDT Office Visit [facility] [place] [phone] Nichole Gonzales PA-C [facility] [address] Health Maintenance Due Date Last Done Comments DISCUSS TOBACCO CESSATION (REFER TO SMARTSET #9244) 1989 Pneumococcal Vaccine: Pediatrics (0 to 5 [...] filedocumented as of this encounter Care Teams Surgical Services Tech Relationship Specialty Start Date End Date Nichole Gonzales PA-C [address] [place] [address] PCP - General Physician Floral Assistant 05/22/23 documented as of this encounter
--- OUTSIDE RECORDS SUMMARY | 2024-07-04 04:06 | External Medical Summary | Summary of Care ---
Author Name Unknown Organization [facility] Address [address] [place] [address] Phone [phone] Care Team Providers Care Director Life Name Role Phone Nichole Gonzales PA-C Primary Care Provider [phone] Reason for Referral * Evaluate & Treat - Unlimited Visits (Within 10 days (routine)) - Authorized Specialty Diagnoses / Procedures Referred By Contac t Referred To Contact General Surgery Diagnoses Umbilical hernia without obstruction and without gangrene Brian Olmos DO [address] [place] [address] Referral ID Status Reason Start Date Expiration Date Visits Requested Visits Authorized [id number] Authorized Specialty Services Required 05/08/[phone] Question Answer Referral Priority Within 10 days (routine) Where should this appointment be scheduled? [facility] What condition is the patient being seen for? General Surgery Conditions What condition is the patient being seen for? Hernia (excluding Hiatal) Comments Discharge Order Reason for Visit * Reason Comments Abdominal Pain * Auth/Cert Specialty Diagnoses / Procedures Referred By Contac t Referred To Contact [facility] [address] [place] [address] Phone: [phone] Emergency Medicine [facility] [address] [facility] [address] Referral ID Status Reason Start Date Expiration Date Visits Re quested Visits Authorized [id number] Encounter Details Date Type Department Care Team ([facility] st Contact Info) Description 05/08/2024 12:11 PM EDT - 05/08/2024 4:22 PM EDT Emergency [facility] Emergency Department ([facility]) [address] [place] [address] Nickolas BrianDO [address] [place] [phone] Constipation, unspecified constipation type (Primary Dx); Umbilical hernia without obstruction and without gangrene Discharge Disposition: Home - Self Care Allergies Active Allergy Reactions Criticality Noted Date Comments Naloxone Edema Other,Itching,Rash High 04/14/2021 Penicillins Anaphylaxis High 02/02/2013 anaphylactic Shellfish-Derived Products Edema airway High 04/14/2021 All seafood documented as of this encounter (statuses as of 05/09/2024) Medications Medication Sig Dispensed Refills Start Date [...] BEFORE BEDTIME. 946 mL 1 04/28/2024 Active documented as of this encounter (statuses as of 05/09/2024) Active Problems Problem Noted Date Diagnosed Date [...] as of this encounter (statuses as of 05/09/2024) Resolved Problems Problem Noted Date Diagnosed Date Resolved Date Dental infection 03/18/2022 05/22/2023 Morbid obesity due to excess calories 02/23/2021 12/12/2023 Uncomplicated opioid dependence 02/23/2021 03/26/2022 PTSD (post-traumatic stress disorder) 02/23/2021 03/26/2022 documented as of this encounter (statuses as of 05/09/2024) Social History Tobacco Use Types Packs/Day Years [...] Sign Reading Time Taken Comments Blood Pressure 156/91 05/08/2024 4:13 PM EDT Pulse 72 05/08/2024 4:13 PM EDT Temperature 36.8 C (98.2 F) 05/08/2024 12:10 PM E DT Respiratory Rate 16 05/08/2024 4:13 PM EDT Oxygen Saturation 100% 05/08/2024 12:10 PM EDT Inhaled Oxygen Concentration - - Weight - - Height - - Body Mass Index - - documented in this encounter Discharge Instructions * Discharge Instructions* Brian Olmos DO - 05/08/2024 4:16 PM EDT You were evaluated today for abdominal discomfort/pressure. You were found to have a fat containingumbilical hernia on CT and evidence of constipation. Continue taking your stool regimen. General Surgery referral has been placed for your hernia. Return emergency department if develop any significant worsening symptoms or new/concerning symptoms. documented in this encounter ED Notes * Chrystal Perez RN - 05/08/2024 12:10 PM EDT Pt complains of "lump" in abd area and tx himself for constipation at home. Reports he has been having regular BM's every morning. This morning he broke out in a sweat and stomach was churning. documented in this encounter Miscellaneous Notes * ED Associate Consulting Engineer Note - Deja Menon RN - 05/08/2024 4:22 PM EDT Pt denies any pain at the time of discharge. Discharge instructions reviewed with pt. Advised to follow up with general surgery. All questions answered and addressed. Verbalized understanding. Ambulated out of department with steady gait. * ED Associate Consulting Engineer Note - Jeniffer De La Fuente RN - 05/08/2024 1:17 PM EDT Pt stated he is allergic to shell fish but not contrast dye, pt stated he had a ct scan in the pastwith contrast dye and did not have any sob, swelling, rashes or hives. documented in this encounter Plan of Treatment Upcoming Encounters Date Type Department Care Team (Late st Contact Info) Description 05/11/2024 3:20 PM EDT Nurse Only Ancillary 1st Floor, [place] [address] [facility] [place] [address] [place], [facility] [address] 05/20/2024 10:40 AM EDT [facility] [address] [facility] [place] [address] Vinita Bee, DPM 400 [facility] [address] 06/15/2024 12:40 PM EDT Office Visit [facility], [place] [address] [facility] [place] [phone] Nichole Gonzales PA-C [facility] [address] Scheduled Referrals Name Type Priority Associated Diagnoses Orde r Schedule SURGERY REFERRAL OP Referral Within 10 da ys (routine) Umbilical hernia without obstruction and without gangrene Ordered: 05/08/2024 Health Maintenance Due Date Last Done Comments DISCUSS TOBACCO CESSATION (REFER TO SMARTSET #7673) 1990 Pneumococcal Vaccine: Pediatrics (0 to 5 [...] Procedure Name Priority Date/Time Associated Diagnosis Comments CT ABD/PELVIS W IV CONTRAST - WO ORAL CONTRAST STAT 05/08/2024 2:56 PM EDT DIFFERENTIAL, AUTOMATED STAT 05/08/2024 1:07 PM EDT COMPREHENSIVE METABOLIC PANEL STAT 05/08/2024 1:07 PM EDT CBC STAT 05/08/2024 1:07 PM EDT LIPASE STAT 05/08/2024 1:07 PM EDT LACTATE,WHOLE BLOOD STAT 05/08/2024 1 :07 PM EDT CBC STAT 05/08/2024 1:07 PM EDT documented in this encounter Results * CT ABD/PELVIS W IV CONTRAST - WO ORAL CONTRAST (05/08/2024 2:56 PM EDT) Anatomical Region Laterality Modality Body, Abdomen, Pelvis Computed T omography 05/08/2024 2:45 PM EDT Impressions 05/08/2024 3:33 PM EDT IMPRESSION: 1. There is a small fat-containing umbilical hernia. 2. Nonobstructive bowel gas pattern 3. Constipation. No focal inflammation of bowel. 4. Mild mesenteric adenitis. THIS DOCUMENT HAS BEEN ELECTRONICALLY SIGNED BY EVAN KAHN MD Narrative 05/08/2024 3:33 PM EDT PROCEDURE INFORMATION: Exam: CT Abdomen And Pelvis With Contrast Exam date and time: 05/08/2024 2:45 PM Age: 34 years old Clinical indication: Abdominal pain; Patient HX: Patient C/O of lump upper mid abdomen . painful. ; Additional info: Upper abdominal discomfort with increased pressure and diaphoresis TECHNIQUE: Imaging protocol: Computed tomography of the abdomen and pelvis with contrast. Radiation optimization: All CT scans at this facility use at least one of these dose optimization techniques: automated exposure control; mA and/or kV adjustment per patient size (includes targeted exams where dose is matched to clinical indication); or iterative reconstruction. Contrast material: ISOVUE 370; Contrast volume: 80 ml; Contrast route: INTRAVENOUS (IV); COMPARISON: CT ABD/PELVIS W IV CONTRAST - WO ORAL CONTRAST 12/21/2023 6:08 PM FINDINGS: Lungs: No acute abnormality. Liver: Normal. No mass. Gallbladder and biliary ducts: Normal. No calcified stones. No ductal dilation. Pancreas: Normal. No ductal dilation. Spleen: Normal. No splenomegaly. Adrenal glands: Normal. No mass. Kidneys and ureters: Normal. No hydronephrosis. Stomach and bowel: There is excessive colonic stool content. Appendix: No evidence of appendicitis. Intraperitoneal space: Unremarkable. No free air. No significant fluid collection. Vasculature: Unremarkable. No abdominal aortic aneurysm. Lymph nodes: There are multiple small nonspecific lymph nodes in the mesenteric fat of the right lower quadrant, but there are no nodes of pathologic dimensions present. Shotty inguinal lymph nodes. Urinary bladder: The bladder is distended. Reproductive: Unremarkable as visualized. Bones/joints: There are moderate degenerative changes present. Soft tissues: There is a small fat-containing umbilical hernia. Procedure Note Evan Kahn MD - 05/08/2024 PROCEDURE INFORMATION: Exam: CT Abdomen And Pelvis With Contrast Exam date and time: 05/08/2024 2:45 PM Age: 34 years old Clinical indication: Abdominal pain; Patient HX: Patient C/O of lump uppermid abdomen . painful. ; Additional info: Upper abdominal discomfort withincreased pressure and diaphoresis TECHNIQUE: Imaging protocol: Computed tomography of the abdomen and pelvis withcontrast. Radiation optimization: All CT scans at this facility use at least one ofthese dose optimization techniques: automated exposure control; mA and/or kV adjustment per patient size (includes targeted exams where dose is matchedto clinical indication); or iterative reconstruction. Contrast material: ISOVUE 370; Contrast volume: 80 ml; Contrast route: INTRAVENOUS (IV); COMPARISON: CT ABD/PELVIS W IV CONTRAST - WO ORAL CONTRAST 12/21/2023 6:08 PM FINDINGS: Lungs: No acute abnormality. Liver: Normal. No mass. Gallbladder and biliary ducts: Normal. No calcified stones. No ductaldilation. Pancreas: Normal. No ductal dilation. Spleen: Normal. No splenomegaly. Adrenal glands: Normal. No mass. Kidneys and ureters: Normal. No hydronephrosis. Stomach and bowel: There is excessive colonic stool content. Appendix: No evidence of appendicitis. Intraperitoneal space: Unremarkable. No free air. No significant fluid collection. Vasculature: Unremarkable. No abdominal aortic aneurysm. Lymph nodes: There are multiple small nonspecific lymph nodes in themesenteric fat of the right lower quadrant, but there are no nodes of pathologic dimensions present. Shotty inguinal lymph nodes. Urinary bladder: The bladder is distended. Reproductive: Unremarkable as visualized. Bones/joints: There are moderate degenerative changes present. Soft tissues: There is a small fat-containing umbilical hernia. IMPRESSION IMPRESSION: 1. There is a small fat-containing umbilical hernia. 2. Nonobstructive bowel gas pattern 3. Constipation. No focal inflammation of bowel. 4. Mild mesenteric adenitis. THIS DOCUMENT HAS BEEN ELECTRONICALLY SIGNED BY EVAN KAHN MD Brian Andrewbrittany OTT RAD CT * DIFFERENTIAL, AUTOMATED (05/08/2024 1:07 PM EDT) WBC 7.16 4.00 - 10.80 K/uL 05/08/2024 1:20 PM EDT LAB[facility]ORY [facility] Neutrophils % 65.2 40.0 - 75.0 % 05/08/2024 1:20 PM EDT LAB[facility] Lymphocytes % 27.7 18.0 - 42.0 % 05/08/2024 1:20 PM EDT LABORATORY GL Monocytes % 4.9 1.0 - 11.0 % 05/08/2024 1:20 PM EDT LABORATORY GL Eosinophils % 1.8 0.0 - 6.0 % 05/08/2024 1:20 PM EDT LABORATORY GL Basophils % 0.3 0.0 - 2.0 % 05/08/2024 1:20 PM EDT LABORATORY [facility] Immature Granulocytes % 0.1 0.0 - 2.0 % 05/08/2024 1:20 PM EDT LABORATORY [facility] Absolute Neutrophils 4.67 1.80 - 7.70 K/uL 05/08/2024 1:20 PM EDT LABORATORY [facility] Absolute Lymphocytes 1.98 1.00 - 4.80 K/ul 05/08/2024 1:20 PM EDT LABORATORY [facility] Absolute Monocytes 0.35 0.00 - 1.10 K/uL 05/08/2024 1:20 PM EDT LABORATORY [facility] Absolute Eosinophils 0.13 0.00 - 0.70 K/uL 05/08/2024 1:20 PM EDT LABORATORY [facility] Absolute Basophils 0.02 0.00 - 0.20 K/uL 05/08/2024 1:20 PM EDT LABORATORY GL Absolute Immature Granulocytes 0.01 0.00 - 0.20 K/uL 05/08/2024 1:20 PM EDT LABORATORY [facility] Blood Venous blood specimen / Unknown Venipuncture / Unknown 05/08/2024 1:07 PM EDT 05/08/2024 1:13 PM EDT Brian Olmos DO LAB BLOOD ORDERABLES LABORATORY [facility] [address] [place] [address] * CBC (05/08/2024 1:07 PM EDT) [facility] WBC 7.16 4.00 - 10.80 K/uL 05/08/2024 1:20 PM EDT LABORATORY GL RBC 5.06 4.50 - 5.25 M/uL 05/08/2024 1:20 PM EDT LABORATORY GL HGB 15.2 14.0 - 16.8 g/dL 05/08/2024 1:20 PM EDT LABORATORY [facility] HCT 45.2 40.0 - 48.4 % 05/08/2024 1:20 PM EDT LABORATORY GL MCV 89.3 82.0 - 99.5 fL 05/08/2024 1:20 PM EDT LABORATORY [facility] MCH 30.0 27.0 - 34.0 pg 05/08/2024 1:20 PM EDT LABORATORY [facility] MCHC 33.6 32.0 - 36.0 g/dL 05/08/2024 1:20 PM EDT LABORATORY [facility] RDW 12.6 11.5 - 15.5 % 05/08/2024 1:20 PM EDT LABORATORY [facility] PLT 212 140 - 400 K/uL 05/08/2024 1:20 PM EDT LABORATORY [facility] MPV 10.1 6.6 - 11.1 fL 05/08/2024 1:20 PM EDT LABORATORY [facility] nRBCs 0 <=0 /100 WBCs 05/08/2024 1:20 PM EDT LABORATORY [facility] Blood Venous blood specimen / Unknown Venipuncture / Unknown 05/08/2024 1:07 PM EDT 05/08/2024 1:13 PM EDT Brian Olmos LAB BLOOD ORDERABLES LABORATORY [address] [address] * LACTATE,WHOLE BLOOD (05/08/2024 1:07 PM EDT) [facility] Lactate, Whole Blood 1.2 0.4 - 2.0 mmol/L 05/08/2024 1:19 PM EDT LABORATORY [facility] Blood Venous blood specimen / Unknown Venipuncture / Unknown 05/08/2024 1:07 PM EDT 05/08/2024 1:13 PM EDT Brian Nickolas LAB BLOOD ORDERABLES LABORATORY [address] [address] * (ABNORMAL) LIPASE (05/08/2024 1:07 PM EDT) Lipase 12(L) 13 - 60 U/L 05/08/2024 1:38 PM EDT LABORATORY GL Blood Venous blood specimen / Unknown Venipuncture / Unknown 05/08/2024 1:07 PM EDT 05/08/2024 1:14 PM EDT Brian Olmos LAB BLOOD ORDERABLES LABORATORY GL [address], [place] [id number] * (ABNORMAL) COMPREHENSIVE METABOLIC PANEL (05/08/2024 1:07 PM EDT) BUN 10 6 - 20 mg/dL 05/08/2024 1:38 PM EDT LAB[facility] Creatinine 0.7 0.6 - 1.2 mg/dL 05/08/2024 1:38 PM EDT [facility] Estimated Glomerular Filtration Rate >90 >=60 mL/min 05/08/2024 1:38 PM EDT [facility] Comment:eGFR is calculated b ased on the CKD-EPI 2020 equation. Sodium 140 135 - 146 mmol/L 05/08/2024 1:38 PM EDT [facility] Potassium 4.1 3.5 - 5.1 mmol/L 05/08/2024 1:38 PM EDT [facility] Chloride 102 98 - 107 mmol/L 05/08/2024 1:38 PM EDT LAB[facility] CO2 28 22 - 32 mmol/L 05/08/2024 1:38 PM EDT [facility] Anion Gap 10 7 - 15 mmol/L 05/08/2024 1:38 PM EDT [facility] Glucose 145(H) 70 - 120 mg/dL 05/08/2024 1:38 PM EDT [facility] Albumin 4.4 3.8 - 5.0 g/dL 05/08/2024 1:38 PM EDT [facility] AST 17 10 - 50 U/L 05/08/2024 1:38 PM EDT [facility] Alkaline Phosphatase 71 35 - 130 U/L 05/08/2024 1:38 PM EDT [facility] Bilirubin, Total 0.5 <=1.2 mg/dL 05/08/2024 1:38 PM EDT [facility] Calcium 9.6 8.4 - 10.2 mg/dL 05/08/2024 1:38 PM EDT [facility] Protein 7.9 6.0 - 8.3 g/dL 05/08/2024 1:38 PM EDT [facility] ALT 20 10 - 50 U/L 05/08/2024 1:38 PM EDT [facility] Blood Venous blood specimen / Unknown Venipuncture / Unknown 05/08/2024 1:07 PM EDT 05/08/2024 1:14 PM EDT Brian Andrewbrittany OTT LAB BLOOD ORDERABLES LAB[facility]ATORY [facility] [address] [facility] [place] [address] documented in this encounter Visit Diagnoses Diagnosis Constipation, unspecified constipation type- Primary Umbilical hernia without obstruction and without gangrene documented in this encounter Administered Medications Inactive Administered Medications - up to 3 most recent administrations Medication Order MAR Action Action Date Dose Rate Site Iopamidol (Isovue 370) inj 80 mL 80 mL, Intravenous, ONCE, On Sat05/08/24 at 1530, For 1 dose, Radiology Medication Routing (Non-IR) Given 05/08/2024 2:56 PM EDT 80 mL Antecubital Right documented in this encounter Active and Recently Administered Medications Times are shown in EDT. Scheduled Medication Order 05/06/2024 05/07/2024 05/08/2024 Iopamidol (Isovue 370) inj 80 mL (COMPLETED) 80 mL, Intravenous, ONCE, On Sat05/08/24 at 1530, For 1 dose, Radiology Medication Routing (Non-IR) 1456 (Given - Provid er: Sandra Albarado, RT) documented in this encounter Care Teams Director Life Relationship Specialty Start Date End Date Nichole Gonzales PA-C [address] [facility] [place] [phone] PCP - General Physician Manager Orange 05/22/23 documented as of this encounter
--- OUTSIDE RECORDS SUMMARY | 2024-07-04 04:06 | External Medical Summary ---
Author Name Unknown Address Unknown Organization K1F:LABORATORY [facility] - [address] [place] [address] Ave. [place] [address] Laboratory Report Ordering Provider Test Date Status RUTHIE FLEMING 05/08/2024 13:07:48 Final Observation Date Value Abnormality Reference (Units ) Status WBC, Total 05/08/2024 13:07:48 7.16 4.00-10.80 (K/uL) Final RBC 05/08/2024 13:07:48 5.06 4.50-5.25 (M/uL) Final Hemoglobin 05/08/2024 13:07:48 15.2 14.0-16.8 (g/dL) Final HCT 05/08/2024 13:07:48 45.2 40.0-48.4 (%) Final MCV 05/08/2024 13:07:48 89.3 82.0-99.5 (fL) Final MCH 05/08/2024 13:07:48 30.0 27.0-34.0 (pg) Final MCHC 05/08/2024 13:07:48 33.6 32.0-36.0 (g/dL) Final RDW 05/08/2024 13:07:48 12.6 11.5-15.5 (%) Final Platelets 05/08/2024 13:07:48 212 140-400 (K/uL) Final MPV 05/08/2024 13:07:48 10.1 6.6-11.1 (fL) Final Nucleated erythrocytes/100 leukocytes [Ratio] in Blood by Automated count 05/08/2024 13:07:48 0 <=0 (/100 WBCs) Final Performing Location LABORATORY [facility] - [address] [facility] [place]ael [place] [address]
--- OUTSIDE RECORDS SUMMARY | 2024-07-04 04:06 | External Medical Summary | Summary of Care ---
Author Name Unknown Organization [facility] Address [address] [place] [address] Phone [phone] Care Team Providers Care Senior Insight Manager Name Role Phone Kristian Gonzales PA-C Primary Care Provider [phone] Reason for Visit * Reason Comments eRx-Medication Refill Encounter Details Date Type Department Care Team ([facility] st Contact Info) Description 03/09/2024 Refill [facility] 21 [facility] [place] [address] Kristian Gonzales PA-C [facility] [place] [address] Constipation, unspecified constipation type Allergies Active Allergy Reactions Criticality Noted Date Comments Naloxone Edema Other,Itching,Rash High 04/14/2021 Penicillins Anaphylaxis High 02/02/2013 anaphylactic Shellfish-Derived Products Edema airway High 04/14/2021 All seafood documented as of this encounter (statuses as of 03/11/2024) Medications Medication Sig Dispensed Refills Start Date [...] or juice. 850 g 5 12/12/2023 Active Clindamycin HCl 300 MG Oral Capsule Take 1 Capsule by mouth in the morning and 1 Capsule at noon and 1 Capsule before bedtime. 30 Capsule 02/26/2024 Active Lactulose 10 GM/15ML Oral Solution (Constulose)Indic ations:Constipati on, unspecified constipation type TAKE 30 ML BY MOUTH IN THE MORNING AND 30 ML BEFORE BEDTIME. 946 mL 1 03/11/2024 Active Lactulose 10 GM/15ML Oral Solution (Constulose)Indic ations:Constipati on, unspecified constipation type TAKE 30 ML BY MOUTH IN THE MORNING AND 30 ML BEFORE BEDTIME. 946 mL 1 02/03/2024 4 Discontinued documented as of this encounter (statuses as of 03/11/2024) Active Problems Problem Noted Date Diagnosed Date [...] as of this encounter (statuses as of 03/11/2024) Resolved Problems Problem Noted Date Diagnosed Date Resolved Date Dental infection 03/18/2022 05/22/2023 Morbid obesity due to excess calories 02/23/2021 12/12/2023 Uncomplicated opioid dependence 02/23/2021 03/26/2022 PTSD (post-traumatic stress disorder) 02/23/2021 03/26/2022 documented as of this encounter (statuses as of 03/11/2024) Social History Tobacco Use Types Packs/Day Years [...] Telephone Encounter - Kristian Gonzales PA-C - 03/11/2024 10:42 AM EDTSigned Prescriptions: Disp Refills Lactulose 10 GM/15ML Oral Solution (Constu*946 mL 1 Sig: TAKE 30 ML BY MOUTH IN THE MORNING AND 30 ML BEFORE BEDTIME. Authorizing Provider: KRISTIAN GONZALES * Telephone Encounter - Ge, Brian M, [facility] - 03/10/2024 3:09 PM EDTPending Prescriptions: Disp Refills Lactulose 10 GM/15ML Oral Solution [Pharma*946 mL 1 Sig: TAKE 30 ML BY MOUTH IN THE MORNING AND 30 ML BEFORE BEDTIME. * Telephone Encounter - Brian Carolina [facility] - 03/10/2024 3:09 PM EDT Pending Prescriptions: Disp Refills Lactulose 10 GM/15ML Oral Solution [Pharma*946 mL 1 Sig: TAKE 30 ML BY MOUTH IN THE MORNING AND 30 ML BEFORE BEDTIME. 01/03/2024 (in office), Visit date not found (telemedicine) 06/15/2024 If no future appointments scheduled, and last appointment is greater than a year ago, please schedule patient for a follow-up appointment Last date the medication was ordered: 02/03/24 Pharmacy: [id number] [facility] Is this request for a controlled substance?No [...] 11:40 AM EDT Office Visit Wound Care, [facility] [address] [place] [address] V[place] Bee, DPM [facility] [address] 06/15/2024 12:40 PM EDT Office Visit Family [facility], [place] 21 [facility] [place] [phone] Kristian Gonzales PA-C [facility] [place] [address] Health Maintenance Due Date Last Done Comments DISCUSS TOBACCO CESSATION (REFER TO SMARTSET #[id number]) 1990 Pneumococcal Vaccine: Pediatrics (0 to 5 [...] shot) (Season Ended) 2024 GFR 12/29/2024 12/30/2023, 03/2 11/2023, 02/28/2023, Additional history exists HbA1c 12/29/2024 12/30/2023, [...] type documented in this encounter Care Teams Senior Insight Manager Relationship Specialty Start Date End Date Kristian Gonzales PA-C [address] [place] [phone] PCP - General Physician Efficiency Expert 05/22/23 documented as of this encounter
--- OUTSIDE RECORDS SUMMARY | 2024-07-04 04:06 | External Medical Summary | Summary of Care ---
Author Name Unknown Organization [facility] Address [address] [place] [place] [place] [address] Phone [phone] Care Team Providers Care Longwall Foreman Name Role Phone Nichole Gonzales PA-C Primary Care Provider [phone] Reason for Visit * Reason Onset Date Comments Emergency Department Follow-Up 12/25/2023 FYI 12/25/2023 Encounter Details Date Type Department Care Team ([facility] st Contact Info) Description [facility] [place] [phone] Nichole Gonzales PA-C [facility] [place] [address] Emergency Department Follow-Up (12/25); FYI... Allergies Active Allergy Reactions Criticality Noted Date Comments Naloxone Edema Other,Itching,Rash High 04/14/2021 Penicillins Anaphylaxis High 02/02/2013 anaphylactic Shellfish-Derived Products Edema airway High 04/14/2021 All seafood documented as of this encounter (statuses as of 03/25/2024) Medications Medication Sig Dispensed Refills Start Date [...] BEFORE BEDTIME. 54 g 3 2 Active Losartan Potassium 25 MG Oral Tablet (Cozaar)Indicatio ns:Hypertension goal BP (blood pressure) < 140/90 TAKE 2 TABLETS BY MOUTH EVERY MORNING 180 Tablet 3 3 Active Triamcinolone Acetonide 0.1 % External Cream [...] water or juice. 850 g 5 4 Active Clindamycin HCl 300 MG Oral CapsuleIndication s:Infected blister of great toe of left foot, initial encounter Take 1 Capsule by mouth in the morning and 1 Capsule at noon and 1 Capsule in the evening and 1 Capsule before bedtime. 40 Capsule 4 01/03/20 24 Discontinued(End of Procedure) Lactulose 10 GM/15ML Oral Solution (Constulose) Take 30 mL by mouth in the morning and 30 mL before bedtime. Do all this for 5 days. 300 mL 4 12/26/19 24 Discontinued(Ref ill) Lactulose 10 GM/15ML Oral Solution (Constulose)Indic ations:Constipati on, unspecified constipation type Take 30 mL by mouth in the morning and 30 mL before bedtime. 946 mL 1 4 02/03/20 24 Discontinued documented as of this encounter (statuses as of 03/25/2024) Active Problems Problem Noted Date Diagnosed Date [...] as of this encounter (statuses as of 03/25/2024) Resolved Problems Problem Noted Date Diagnosed Date Resolved Date Dental infection 03/18/2022 05/22/2023 Morbid obesity due to excess calories 02/23/2021 12/12/2023 Uncomplicated opioid dependence 02/23/2021 03/26/2022 PTSD (post-traumatic stress disorder) 02/23/2021 03/26/2022 documented as of this encounter (statuses as of 03/25/2024) Social History Tobacco Use Types Packs/Day Years [...] encounter Miscellaneous Notes * Telephone Encounter - Johanna Cortez LPN - 12/26/2023 12:44 PM EDT Patient(s) returned call. Informed of message. Verbalized understanding. Patient very happy and said to Thank Nichole Gonzales for him. * Telephone Encounter - Sherrie Akhtar LPN - 12/26/2023 12:24 PM EDT Left message for the patient to call the office at [phone] for Nichole's msg * Telephone Encounter - Nichole Gonzales PA-C - 12/26/2023 6:40 AM EDT He may continue Lactulose. I have sent refill. He may stop lactulose once he feels he has cleaned out his bowels or he may continue taking for regular BM's. * Telephone Encounter - Rubia Granados OSA - 12/25/2023 3:44 PM EDT Patient was seen in ER Patient needs ED Follow-up. Did patient decline to see other providers in their home clinic? : YES If New Patient - Were surrounding clinics offered? N/A Please see call details. Offered appt for 12/25 with Gilma but declined due to work schedule Was seen ER at [facility] on Sat 12/20, found to be backed up with stool, was prescribed lactulose for 5 days but only has 1 dose left. He has stayed taht he is flatulating and has passed some stools.Please call to advise if he should have another prescription called in. He did state he is still slightly bloated documented in this encounter Plan of Treatment Upcoming Encounters Date Type Department Care Team (Late st Contact Info) Description 04/22/2024 11:20 AM EDT Office Visit Wound Care, [facility] [address] [address] Vinita Bee DPM [address] [place] [address] 06/15/2024 12:40 PM EDT Office Visit [facility] [place] [phone] Nichole Gonzales PA-C [place] [address] Health Maintenance Due Date Last Done Comments DISCUSS TOBACCO CESSATION (REFER TO SMARTSET #8064) 1990 Pneumococcal Vaccine: Pediatrics (0 to 5 [...] Diagnoses Diagnosis Constipation, unspecified constipation type- Primary documented in this encounter Care Teams Longwall Foreman Relationship Specialty Start Date End Date Nichole Gonzales PA-C [place] [address] PCP - General Physician Sample Mounter 05/22/23 documented as of this encounter
--- OUTSIDE RECORDS SUMMARY | 2024-07-04 04:06 | External Medical Summary ---
Author Name Unknown Address Unknown Organization K1F:[facility] - [address] [facility]. Bhumika NOLAN [address] Laboratory Report Ordering Provider Test Date Status RUTHIE FLEMING 05/08/2024 13:07:48 Final Observation Date Value Abnormality Reference (Units ) Status SYNC LEUKOCYTES IN BLOOD BY AUTOMATED COUNT 05/08/2024 13:07:48 7.16 4.00-10.80 (K/uL) Final Segs 05/08/2024 13:07:48 65.2 40.0-75.0 (%) Final Lymphs % 05/08/2024 13:07:48 27.7 18.0-42.0 (%) Final Monos 05/08/2024 13:07:48 4.9 1.0-11.0 (%) Final Eosinophils 05/08/2024 13:07:48 1.8 0.0-6.0 (%) Final Basos 05/08/2024 13:07:48 0.3 0.0-2.0 (%) Final Immature Granulocyte, Percent 05/08/2024 13:07:48 0.1 0.0-2.0 (%) Final Absolute Segs 05/08/2024 13:07:48 4.67 1.80-7.70 (K/uL) Final Lymphs, absolute 05/08/2024 13:07:48 1.98 1.00-4.80 (K/ul) Final Monos, Abs 05/08/2024 13:07:48 0.35 0.00-1.10 (K/uL) Final Eos, Abs 05/08/2024 13:07:48 0.13 0.00-0.70 (K/uL) Final Basos, Abs 05/08/2024 13:07:48 0.02 0.00-0.20 (K/uL) Final Immature Granulocytes, Number 05/08/2024 13:07:48 0.01 0.00-0.20 (K/uL) Final Performing Location [facility] - [address] [place] [address]
--- OUTSIDE RECORDS SUMMARY | 2024-07-04 04:07 | External Medical Summary | Summary of Care ---
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) Nichole Gonzales PA-C [address] [place] [address] Referral ID Status Reason Start Date Expiration Date Visits Requested Visits Authorized [id number] Authorized Specialty Services Required 01/03/[phone] Encounter Details Date Type Department Care Team ([facility] Contact Info) Description 01/22/2024 11:00 AM EDT Office Visit Wound Care, [facility] [address] [place] [address] Vinita Bee DPM [address] [place] [address] Callus*; Pressure injury of toe of left [...] as of this encounter (statuses as of 01/22/2024) Medications Medication Sig Dispensed Refills Start Date End Date Status Buprenorphine HCl 8 MG Sublingual Tablet Sublingual (Subutex) TAKE 1 SUBLINGUAL TABLET TWICE DAILY 0 03/28/2021 Active Albuterol Sulfate HFA 108 (90 [...] Oral Solution (Constulose)Indicati ons:Constipation, unspecified constipation type Take 30 mL by mouth in the morning and 30 mL before bedtime. 946 mL 1 12/26/2023 Active documented as of this encounter (statuses as of 01/22/2024) Active Problems Problem Noted Date Diagnosed Date Prediabetes 12/22/2023 Non-pressure chronic ulcer o f skin of other sites with unspecified severity 12/12/2023 Callus 12/12/2023 Hypertension goal BP (blood pressure) < 140/90 0 05/22/2023 Food insecurity 11/12/2022 Overview: Per [facility] Protocol Mild intermittent asthma without complication Advance directive discussed with patient 021 History of anxiety disorder 02/23/2021 Class 1 obesity without seri ous comorbidity with body mass index (BMI) of 34.0 to 34.9 in adult 02/07/2021 Overview: Per Obesity protocol Spinal stenosis of lumbar region with radiculopa thy 02/02/2013 documented as of this encounter (statuses as of 01/22/2024) Resolved Problems Problem Noted Date Diagnosed Date Resolved Date Dental infection 03/18/2022 05/22/2023 Morbid obesity due to excess calories 02/23/2021 12/12/2023 Uncomplicated opioid dependence 02/23/2021 03/26/2022 PTSD (post-traumatic stress disorder) 02/23/2021 03/26/2022 documented as of this encounter (statuses as of 01/22/2024) Social History Tobacco Use Types Packs/Day Years [...] Progress Notes * Vinita Bee DPM - 01/22/2024 12:27 PM EDT Images from the original note were not included. 2Initial Examination Patient: Wesley Moise Allergies: Naloxone, Penicillins, and Shellfish-derived products Chief Complaint: Chief Complaint Patient presents with Follow Up Bilateral callus formation to lateral aspects of great toes History of Present Illness Wesley Moise is a 33 year old male here today for Charli great toes. Pt was previously seen in Podiatry for the same issue last year. Most recently seen by Dr. Ordaz in Jul. At that time he was to use a pumice stone and moisturize the areas. He reports he is using the pumice stone but not moisturizing. Constitutional There were no vitals taken for [...] Cigarettes Smokeless tobacco: Never Vaping Use Vaping Use: Every day Substances: THC Substance and Sexual Activity Alcohol [...] 5 Lactulose 10 GM/15ML Oral Solution (Constulose) Take 30 mL by mouth in the morning and 30 mL beforebedtime. 946 mL 1 No current facility-administered medications for this visit. WOUND ASSESSMENT Wound Grade/Stage/Type (if changed): Wound/Ulcer Etiology: Pressure Ulcer: I Alteration in Skin Integrity Anterior;Right Toe (Active) Clinical Image 01/22/24 1136 Wound Length (cm) 1 cm 01/22/24 1136 Wound Width (cm) 0.7 cm 01/22/24 1136 Drainage -- (Bloody) 01/22/24 1136 Odor (after cleansing wound) No 01/22/24 1136 Cassandra-Wound (Surrounding Skin) Callus 01/22/24 1136 Wound Surface Area (cm^2) 0.7 cm^2 01/22/24 1136 Alteration in Skin Integrity Anterior;Left Toe (Active) Clinical Image 01/22/24 1135 Wound Length (cm) 0.5 cm 01/22/24 1135 Wound Width (cm) 0.4 cm 01/22/24 1135 Wound Depth (cm) -- (Unknown ) 01/22/24 1106 Drainage -- (Bloody) 01/22/24 1135 Odor (after cleansing wound) No 01/22/24 1106 Cassandra-Wound (Surrounding Skin) Callus 01/22/24 1135 Wound Surface Area (cm^2) 0.2 cm^2 01/22/24 1135 Wound Profile Wound Type: Pressure Ulcer (17) [...] Debridement: Improved Total Post Debridement Measurement: Length 1 Width 0.7 Depth 0.1 cm Total cm2 0.7 (RIGHT) and (LEFT) Length 0.5cmX0.4X0.1 (total 0.2) Procedure Tolerated: Yes Non OR time Out: [...] 1 - Pt seen and evaluated - Calluses debrided which revealed ulcers to the plantar IPJ,charli hallux - No active signs of infection - I did reiterate to the pt that these are caused by pressure - He will need to see a service center coordinator for routine callus care if he is unable to perform this at home - For now- betadine and dsd - Follow up in 3-4 weeks. Vinita Bee DPM 01/22/2024 documented in this encounter Nursing Notes * Verónica Mendoza, UMBERTO - 01/22/2024 10:59 AM EDT Assisted to sit safely on exam seating - Wesley is aware to not rise unassisted for his safety. WOUNDS TO BOTH GREAT TOES UNDER / SURROUNDED BY CALLUS. SITES WASHED WITH SOAP AND WATER TOWEL DRIED TOLERATED WELL. Did state tenderness at sites where drainage was noted . Photos and measurements taken before then after treatment by provider. Applied Betadine to wound beds covered with 2x2 gauze -secured with rolled gauze then tape. Assisted with socks and shoes then guided to exit safely. documented in this encounter Plan of Treatment Upcoming Encounters Date Type Department Care Team (Late st Contact Info) Description 02/12/2024 11:40 AM EDT Office Visit Wound Care, [facility] [address] [facility] [place] [address] Vinita Bee, DOMINIC [facility] [address] 02/17/2024 9:40 AM EDT Office Visit Dermatology, [facility] [place] [address] [place] [address] Taylor Camarillo PA-C [address] [place] [address] 06/15/2024 12:40 PM EDT Office Visit [facility] [address] [place] [phone] Nichole Gonzales PA-C 21 [facility] [address] Scheduled Referrals Name Type Priority Associated Diagnoses Orde r Schedule PODIATRY REFERRAL OP Referral Within 10 days (routine) Callus 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
--- OUTSIDE RECORDS SUMMARY | 2024-07-04 04:07 | External Medical Summary | Summary of Care ---
Author Name Unknown Organization [facility] Address [address] [place] [address] Phone [phone] Care Team Providers Care Performance Test Consultant Name Role Phone Kristian Gonzales PA-C Primary Care Provider [phone] Reason for Visit * Reason Comments eRx-Medication Refill Encounter Details Date Type Department Care Team ([facility] st Contact Info) Description 01/31/2024 Refill [facility] 21 [facility] [place] [phone] Kristian Gonzales PA-C [address] [facility] [place] [address] Constipation, unspecified constipation type Allergies Active Allergy Reactions Criticality Noted Date Comments Naloxone Edema Other,Itching,Rash High 04/14/2021 Penicillins Anaphylaxis High 02/02/2013 anaphylactic Shellfish-Derived Products Edema airway High 04/14/2021 All seafood documented as of this encounter (statuses as of 02/03/2024) Medications Medication Sig Dispensed Refills Start Date [...] BEFORE BEDTIME. 946 mL 1 02/03/2024 Active Lactulose 10 GM/15ML Oral Solution (Constulose)Indic ations:Constipati on, unspecified constipation type Take 30 mL by mouth in the morning and 30 mL before bedtime. 946 mL 1 12/26/2023 Discontinued documented as of this encounter (statuses as of 02/03/2024) Active Problems Problem Noted Date Diagnosed Date [...] as of this encounter (statuses as of 02/03/2024) Resolved Problems Problem Noted Date Diagnosed Date Resolved Date Dental infection 03/18/2022 05/22/2023 Morbid obesity due to excess calories 02/23/2021 12/12/2023 Uncomplicated opioid dependence 02/23/2021 03/26/2022 PTSD (post-traumatic stress disorder) 02/23/2021 03/26/2022 documented as of this encounter (statuses as of 02/03/2024) Social History Tobacco Use Types Packs/Day Years [...] Telephone Encounter - Kristian Gonzales PA-C - 02/03/2024 3:48 PM EDTSigned Prescriptions: Disp Refills Lactulose 10 GM/15ML Oral Solution (Constu*946 mL 1 Sig: TAKE 30 ML BY MOUTH IN THE MORNING AND 30 ML BEFORE BEDTIME. Authorizing Provider: KRISTIAN GONZALES * Telephone Encounter - Yuli Johnson [facility] - 02/02/2024 3:10 PM EDTPending Prescriptions: Disp Refills Lactulose 10 GM/15ML Oral Solution [Pharma*946 mL 1 Sig: Take 30 mL by mouth in the morning and 30 mL before bedtime. * Telephone Encounter - Yuli Johnson [facility] - 02/02/2024 3:10 PM EDT [facility] is currently not authorized to approve refills for the pended medication(s) per refill protocol. Please approve if appropriate. Thanks, Yuli Johnson, PharmD Clinical Pharmacist [facility] ([facility]) 02/02/24 3:10 PM [phone] documented in this encounter Plan of Treatment Upcoming Encounters Date Type Department Care Team (Late st Contact Info) Description 02/12/2024 11:40 AM EDT [facility] Visit [facility] [address] [facility] [address] V[place]a Bee, [facility] [address] [place] [address] 02/17/2024 9:40 AM EDT [facility] [address] [facility] [address] [place] [address] Taylor Camarillo PA-C [address] [facility] [address] [place] [address] 06/15/2024 12:40 PM EDT Office Visit [facility] 21 [facility] [place] [phone] Kristian Gonzales PA-C [place] [address] Health Maintenance Due Date Last Done Comments DISCUSS TOBACCO CESSATION (REFER TO SMARTSET #7546) 1990 Pneumococcal Vaccine: Pediatrics (0 to 5 [...] type documented in this encounter Care Teams Performance Test Consultant Relationship Specialty Start Date End Date Kristian Gonzales PA-C [address] [place] [address] [address] PCP - General Physician Shelver 05/22/23 documented as of this encounter
--- OUTSIDE RECORDS SUMMARY | 2024-07-04 04:07 | External Medical Summary | Summary of Care ---
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 [facility] Which condition are you referring this patient for? 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 946 mL 1 12/26/2023 Active Clindamycin HCl 300 MG Oral CapsuleIndications :Infected blister of great toe of left foot, initial encounter Take 1 Capsule by mouth in the morning and 1 Capsule at noon and 1 Capsule in the evening and 1 Capsule before bedtime. 40 Capsule 0 12/12/2023 Discontinue d(End of Procedure) documented as of this encounter (statuses as of 01/06/2024) Active Problems Problem Noted Date Diagnosed Date [...] as of this encounter (statuses as of 01/06/2024) Resolved Problems Problem Noted Date Diagnosed Date Resolved Date Dental infection 03/18/2022 05/22/2023 Morbid obesity due to excess calories 02/23/2021 12/12/2023 Uncomplicated opioid dependence 02/23/2021 03/26/2022 PTSD (post-traumatic stress disorder) 02/23/2021 03/26/2022 documented as of this encounter (statuses as of 01/06/2024) Social History Tobacco Use Types Packs/Day Years [...] Sign Reading Time Taken Comments Blood Pressure 160/74 01/03/2024 8:49 AM EDT Pulse 94 01/03/2024 8:49 AM EDT Temperature 36.5 C (97.7 F) 01/03/2024 8:49 AM ED T Respiratory Rate 16 01/03/2024 8:49 AM EDT Oxygen Saturation 99% 01/03/2024 8:49 AM EDT Inhaled Oxygen Concentration - - Weight 151.7 kg (334 lb 6.4 oz) 01/03/2024 8:49 AM EDT Height - - Body Mass Index 34.13 12/21/2023 5:12 PM EDT documented in this encounter Progress Notes * Nichole Gonzales PA-C - 01/03/2024 8:55 AM EDT Images from the original note were not included. History of Present Illness Chief Complaint Patient presents with Emergency Department Follow-Up 12/20 [facility]- constipation, reports that this is slowly improving but is not back to normal; also requesting referral for podiatry for calluses as discussed at last OV Pt presents for ED follow up. He was seen at [facility] ED on 12/21/[address] done with impression of constipation, ileoinguinal reactive lymph nodes. He was discharged with rx for lactulose 30mL BID for 5 days. This was refilled by me. It is working. He still feels a little backed up, but itis helping. Pt notes weight loss. 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 He is eating less. However, the rapid weight loss concerns him some. Current Medications: Lactulose 10 GM/15ML Oral Solution (Constulose) Polyethylene Glycol 3350 17 GM/SCOOP Oral Powder (MiraLax) Triamcinolone Acetonide 0.1 % External Cream (Aristocort) Losartan Potassium 25 MG Oral Tablet (Cozaar) Albuterol Sulfate HFA 108 (90 Base) MCG/ACT Inhalation Aerosol Solution Buprenorphine HCl 8 MG Sublingual Tablet Sublingual (Subutex) Physical Exam BP 160/74 | Pulse 94 | Temp 36.5 C (97.7 F) (Tympanic) | Resp 16 | Wt (!) 151.7 kg (334 lb 6.4 oz) | SpO2 99% | BMI 34.13 kg/m | BSA 2.98 m Physical Exam Vitals and nursing note reviewed. Constitutional: General: He is not in acute distress. Appearance: Normal appearance. He is obese. He is not ill-appearing, toxic- appearing or diaphoretic. Cardiovascular: Rate and Rhythm: Normal rate and regular rhythm. Heart sounds: Normal heart sounds. Pulmonary: Effort: Pulmonary effort is normal. Breath sounds: Normal breath sounds. Musculoskeletal: General: Normal range of motion. Right lower leg: No edema. Left lower leg: No edema. Neurological: Mental Status: He is alert and oriented to person, place, and time. I have reviewed the following results: BMP results Recent Labs Units 12/30/23 0858 12/21/23 1752 02/28/23 2216 SODIUM - [facility] mmol/L 140 139 139 POTASSIUM - [facility] mmol/L 4.4 4.5 4.0 CHLORIDE - [facility] mmol/L 102 103 103 CO2 - [facility] mmol/L 28 25 27 CREATININE - [facility] mg/dL 0.8 0.8 0.9 BUN - [facility] mg/dL 11 12 18 Lipid panel results Recent Labs Units 12/30/23 0858 03/23/22 1000 CHOLESTEROL - [facility] mg/dL 152 201* LDL CHOLESTEROL (CALCULATED) - [facility] mg/dL 88 143* HDL CHOLESTEROL - [facility] mg/dL 43 34* TRIGLYCERIDES - [facility] mg/dL 105 121 CBC results Recent Labs Units 12/30/23 0858 12/21/23 1752 02/28/23 2216 WBC K/uL 7.95 9.53 9.20 HGB g/dL 15.9 15.7 15.0 HCT % 47.2 46.0 43.6 PLT K/uL 241 246 224 HbA1c results Recent Labs Units 12/30/23 0858 03/23/22 1000 HEMOGLOBIN A1C - [facility] % 5.9* 6.0* TSH results Recent Labs Units 12/30/23 0858 03/23/22 1000 TSH - [facility] uIU/mL 5.03* 2.74 Vitamin D results No results for input(s): "25OHVITAMIND" in the last 88967 hours. Hepatic panel results Recent Labs Units 12/30/23 0858 12/21/23 1752 02/28/23 2216 PROTEIN - [facility] g/dL 6.8 7.8 7.5 BILIRUBIN, TOTAL - [facility] mg/dL 0.4 0.4 0.3 ALKALINE PHOSPHATASE - [facility] U/L 62 69 55 AST - [facility] U/L 19 27 29 ALT - [facility] U/L 24 22 31 Assessment and Plan Constipation, unspecified constipation type Continue Lactulose. Discussed checking colonoscopy. Pt declined at this time. He is on Subutex which is causing his constipation. He is looking to get off of Subutex at some point. Hypertension goal BP (blood pressure) < 140/90 BP elevated. Continue current medications. Monitor BP at home. Consider medication adjustments if pt continues to be persistently elevated. 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 Time: I spent a total of 20-29 minutes (exact time 28 mins) on the date of service in [...] for clarification arises. documented in this encounter Nursing Notes * Zackary Franklin LPN - 01/03/2024 8:48 AM EDT Chief Complaint Patient presents with Emergency Department Follow-Up 12/20 [facility]- constipation, reports that this is slowly improving but is not back to normal; also requesting referral for podiatry for calluses as discussed at last OV Patient has been verbally educated on the need or importance of Immunizations: pneumo, hep b, tetanus and has declined topic(s). documented in this encounter Plan of Treatment Upcoming Encounters Date Type Department Care Team (Late st Contact Info) Description 01/13/2024 10:20 AM EDT Office Visit Podiatry, [address] [place] [id number] Kelly Ordaz, DOMINIC [address] [facility] [place] [id number] 02/17/2024 9:40 AM EDT Office Visit Dermatology, [place] [address] [address] [place] [id number] Taylor Camarillo PA-C 27 [facility] [address] [place] [address] 06/15/2024 12:40 PM EDT Office Visit Family [facility], [place] [address] [place] [phone] [facility] [id number] Scheduled Referrals Name Type Priority Associated Diagnoses Orde r Schedule PODIATRY REFERRAL OP Referral Within 10 days (routine) Callus 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) Ordered: 01/03/2024 Health Maintenance Due Date Last Done Comments DISCUSS TOBACCO CESSATION (REFER TO SMARTSET #[id number]) 1989 Pneumococcal Vaccine: Pediatrics (0 to 5 Years) and At-Risk Patients (6 to 64 Years) (1 of 2 - PCV) 1995 DTaP,Tdap,and Td Vaccines (1 - Tdap) 2008 Hepatitis B (1 of 3 - 19+ 3-dose series) 2008 *SPIROMETRY ONCE FOR ASTHMA-ADULT 08/23/2022 COVID-19 Vaccine ( season) 2023 Depression Screening 10/09/2023 10/09/2022 Influenza [...] Diagnoses Diagnosis Constipation, unspecified constipation type- Primary Hypertension goal BP (blood pressure) < 140/90 Unspecified essential hypertension Callus Corns and callosities 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
[2024-07-04] MEDS: VANCOMYCIN HCL 1,250 MG in SODIUM CHLORIDE 0.9% 250 ML IV SCH (05:18)
[2024-07-04] MEDS: ADVANCED PROBIOTIC 625 MG CAPSULE PO SCH (08:26)
[2024-07-04 08:47] LABS: Basophils # (auto) 0.04 K/uL (0.00-0.20); Basophils % (auto) 0.6 %; Eosinophils # (auto) 0.32 K/uL (0.00-0.50); Eosinophils % (auto) 4.5 %; Hematocrit (blood only) 40.1 % (42.0-52.0); Hemoglobin 13.9 g/dl (14.0-18.0); Immature Granulocytes # (auto) 0.02 K/uL (0.01-0.20); Immature Granulocytes % (auto) 0.3 %; Lymphocytes # (auto) 2.71 K/uL (1.20-3.40); Lymphocytes % (auto) 38.2 %; Mean Corpuscular Hemoglobin 30.3 pg (25.0-34.0); Mean Corpuscular Hgb Conc 34.7 g/dL (32.0-36.0); Mean Corpuscular Volume 87.4 fL (80.0-100.0); Mean Platelet Volume 9.8 fL (9.4-12.4); Monocytes # (auto) 0.61 K/uL (0.11-0.59); Monocytes % (auto) 8.6 %; Neutrophils # (auto) 3.39 K/uL (1.40-6.50); Neutrophils % (auto) 47.8 %; Platelet Count 253 K/uL (130-400); RDW Coefficient of Variation 12.2 % (11.5-14.5); RDW Standard Deviation 39.2 fL (36.4-46.3); Red Blood Count 4.59 M/uL (4.70-6.10); White Blood Count 7.09 K/ul (4.8-10.8)
[2024-07-04 08:53] LABS: Estimated Average Glucose 126 mg/dl
[2024-07-04 09:17] LABS: Calcium 9.2 mg/dl (8.6-10.3); Potassium 4.4 mmol/L (3.5-5.1)
[2024-07-04 09:23] LABS: BUN Creatinine Ratio 21.1 (10-20); Creatinine Clr Calc Pharmacy 309.5 ml/min
[2024-07-04] MEDS ORDERED: VANCOMYCIN HCL 2,000 MG in SODIUM CHLORIDE 0.9% 500 ML IV SCH (10:00)
[2024-07-04] MEDS: LOSARTAN POTASSIUM 50 MG TAB PO SCH (12:15)
[2024-07-04] MEDS: DAPTOmycin 700 MG in SYRINGE 0 ML IV SCH (13:06)
--- NOTE | 2024-07-04 15:04 | Hospitalist Progress Note ---
Date of Service July 04, 2024 Assessment & Plan (1) Skin ulcer of right great toe: (2) Cellulitis of right foot: Plan: This is a 34 year old male with PMH HTN, anxiety, obesity, prediabetes, tobacco use presented to ER with c/o worsening right foot and leg redness and edema with right great toe ulcer and found to have acute osteomyelitis of distal phalynx. Wound present for months and following outpatient wound and getting debridement. 06/24/2024 started on clindamycin secondary to foot swelling and redness Afebrile, WBC downtrending from 12.9 ->7, ESR 52 Concern for underlying osteomyelitis MRI R foot/toe revealing acute osteomyelitis of the first distal phalanx and reactive osteitis in the first proximal phalanx Wound culture prelim growing strep Blood culture pending Patient with PCN allergy with anaphylaxis - continued on aztreonam, flagyl, vancomycin switched to Dapto today given 148kg, difficulty to safely reach therapeutic dose with vanco Pain control with Tylenol for now. Will avoid narcotic pain medications with h/o substance abuse in past Discussed importance of smoking cessation to improve wound healing - currently on nicotine patch Also noted to have prediabetes with a1c of 6 Arterial dopplers pending to eval for underlying PAD given significant wound Wound nurse consult Consider ID consult once cultures result Awaiting podiatry evaluation CBC, BMP in am (3) Anxiety: Plan: Previously Prescribed clonidine to use on a as needed basis for anxiety. Patient reports is never taken Recently prescribed Wellbutrin however has not started taking yet (4) HTN (hypertension): Plan: In ER hypertensive with BP 160/89. Patient typically takes his medication in afternoon when he awakes as he works third shift Give patient home losartan now and continue daily (5) Prediabetes: Plan: A1c: 6.0 Diabetic diet Follow a.m. glucose (6) History of substance abuse: Plan: Reports prior history opioid medication abuse Reports clean for several years On Subutex (7) Tobacco use: Plan: Readdressed smoking cessation today Nicotine patch DVT Prophylaxis: Ambulate, SCDs Code status: FULL PCP: DAPHNEY Gonzales Dispo: admitted to med/surg Pt was seen and care coordinated with Dr. Goyal. See addendum I spent a total of 60 minutes reviewing notes, outpatient records, labs, medicat ion, coordinating, documenting and providing care for this patient excluding time spent in the performance of separately billed services. Admission and Anticipated Discharge Date Admission Date: July 03, 2024 Supervising Physician Co-Signing Physician Notes Patient was seen and examined at bedside as a follow-up of cellulitis of right foot and osteomyelitis changes of first distal phalanx. Continue with antibiotic (aztreonam 104 and dapto 10/), get cpk level in am. follow-up blood and wound culture. Podiatry and infectious disease consulted, await recommendation. On exam: Patient on RA, NAD, bilateral great toe with dressing in place without soakage. Rest of the exam as above. I have seen and examined the patient and have discussed the case with the provider above. I agree with the assessment and plan as stated. Total time spent 20 minutes. Subjective Patient seen and examined in 360 bed 1. Discussed results of MRI at length. Patient very discouraged and upset about prospect of possible surgery. Discussed awaiting further recommendations and review from podiatry as well as infectious disease. Denies any pain or acute events overnight. No fever, chills, chest pain, shortness of breath, nausea, vomiting or abdominal pain. Has a nicotine patch in place. Readdressed tobacco cessation as a means of improving wound healing. Review of Systems Review of Systems: At least ten systems reviewed and negative except as noted in the HPI. Physical Exam Physical Exam: General Appearance: WD/WN, vitals as above, NAD, sitting up in bed, pleasant, conversing easily Head: normocephalic, atraumatic Eyes: normal inspection, PERRL, conjunctivae normal, anicteric sclerae ENT: external ear and nose normal, oropharynx normal Neck: normal visual inspection, trachea midline, no thyromegaly Respiratory: normal respiratory effort, lungs clear to auscultation, no wheeze, rales, rhonchi. No accessory muscle use Cardiovascular: regular rate, rhythm, no murmur, normal peripheral pulses, no BLE edema. Vessels: no JVD Chest: normal inspection of chest Abdomen/GI: normal bowel sounds, soft, nontender, no hepatosplenomegaly Extremities/Musculoskeletal: no cyanosis or clubbing, extremities motor strength 5/5. Bilateral great toes with dressing in place, c/d/i. Non-tender Neurologic: PERRL, EOMI, accommodation nl, no face palsy, no dysarthria, CN's II-XI intact bilaterally and moves all extremities Psychiatric: A+Ox3, euthymic affect Skin: no rashes, normal color, warm/dry Results & Data Results & Data Vital Signs (Past 12 Hours) Vital Signs Temp Pulse Resp BP Pulse Ox O2 Del Method 07/04/24 07:48 36.6 C 80 18 151/91 H 99 Room Air Laboratory Results Short CBC 07/04/24 Range/Units 07:33 WBC 7.09 (4.8-10.8) K/ul Hgb 13.9 L (14.0-18.0) g/dl Hct 40.1 L (42.0-52.0) % Plt Count 253 (130-400) K/uL BMP 07/04/24 07:33 Sodium 140 Potassium 4.4 Chloride 106 Carbon Dioxide 29 BUN 12 Creatinine 0.57 L Glucose 101 H Calcium 9.2 Diagnostic Findings Foot X-Ray 07/03/24 10:15 XR foot RT min 3V routine CLINICAL HISTORY: Right foot infection. COMPARISON: None FINDINGS: A wound along the plantar aspect of the base of the right first distal phalanx is noted. Right first toe soft tissue swelling is present. No clear bony erosion is identified. There are no fractures within the right foot. There are mild degenerative changes within the right first metatarsophalangeal joint. Plantar heel spur is incidentally noted. IMPRESSION: Right first toe plantar wound. No bony erosion to suggest acute osteomyelitis by radiography. If indicated, MRI could be obtained for further evaluation. ACT 112: Negative or not required by law. Electronically signed by: Romario Orr M.D. 07/03/2024 10:46 AM Foot MRI 07/03/24 13:51 Exam(s): MRI RIGHT FOOT W/WO Contrast IV Amt: 14mL Gadavist given existing IV EXAM: MR Right Lower Extremity Without and With Intravenous Contrast, Foot CLINICAL HISTORY: Reason for exam: Right great toe ulcer r/o osteomyelitis. TECHNIQUE: Multiplanar magnetic resonance images of the right foot without and with intravenous contrast. CONTRAST: Patient received 14mL Gadavist given existing IV of IV contrast COMPARISON: No relevant prior studies available. FINDINGS: Ulcer subjacent to the first IP joint. Abnormal marrow signal within the first proximal and distal phalanges. Marrow fat is preserved within the proximal phalanx but suppressed in the distal phalanx. 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 Soft tissue cellulitis. No soft tissue abscess. IMPRESSION: 1. Ulcer subjacent to the first IP joint. Acute osteomyelitis of the first distal phalanx and reactive osteitis in the first proximal phalanx. Electronically signed by: Blaine Paredes MD 07/03/24 21:16 PM
[2024-07-04] MEDS ORDERED: Nursing to Pharmacy Communication SCH (17:00)
[2024-07-05 07:46] LABS: BUN Creatinine Ratio 23.7 (10-20); Blood Urea Nitrogen 14 mg/dl (6-23); Carbon Dioxide 27 mmol/L (21-32); Chloride 106 mmol/L (98-107); Creatine Kinase 70 U/L (30-223); Glucose 87 mg/dl (70-99(Fasting))
[2024-07-05 08:06] LABS: Hematocrit (blood only) 40.4 % (42.0-52.0); Hemoglobin 13.5 g/dl (14.0-18.0); Mean Corpuscular Hemoglobin 29.9 pg (25.0-34.0); Mean Corpuscular Hgb Conc 33.4 g/dL (32.0-36.0); Mean Corpuscular Volume 89.6 fL (80.0-100.0); Mean Platelet Volume 9.4 fL (9.4-12.4); Platelet Count 263 K/uL (130-400); RDW Coefficient of Variation 12.2 % (11.5-14.5); RDW Standard Deviation 39.8 fL (36.4-46.3); Red Blood Count 4.51 M/uL (4.70-6.10); White Blood Count 8.61 K/ul (4.8-10.8)
[2024-07-05 08:23] LABS: Potassium 4.1 mmol/L (3.5-5.1)
--- NOTE | 2024-07-05 10:25 | Podiatry Consultation ---
Date of Consultation July 05, 2024 Assessment & Plan (1) Cellulitis of right foot: (2) Skin ulcer of right great toe: Non-pressure ulcer stage: with necrosis of bone Qualified Code(s): L97.514 - Non-pressure chronic ulcer of other part of right foot with necrosis of bone (3) Chronic ulcer of left foot with necrosis of bone: (4) Osteomyelitis of foot, right, acute: Plan - Patient examined and evaluated. - Wound cleaned, lightly debrided at bedside in ultrasound,and redressed with DSD. - Discussed that the options for this wound and bone infection include 6-8 weeks of IV antibiotics versus hallux amputation - Patient is adamant he wants to fail conservative treatment prior to surgical resection. - Recommend ID consult for further care and continued wound care. - Will plan bedside I&D tomorrow to evaluate extent of wound and clean it up a bit. Thank you for the consult. We're happy to help. History of Present Illness Reason for Consultation: Right foot osteomyelitis Attending Physician: Yoana Goyal MD History of Present Illness Patient seen in ultrasound, just prior to obtaining arterial ultrasound. Doing well now but presented to the ED on Saturday for worsening right foot infection. He states that he has had calluses and wounds to the inside of the great toe for years which have only gotten worse recently. Specifically, the right hallux ulcer has gotten deeper with more drainage, pus, and significant redness and swelling to the toe and foot over the last two weeks. Now, he also admits to chills but has improved with IV antibiotics here inpatient. Admits to pain to the right hallux ulceration. He has been seeing wound care for treatment, though his timeline of this care is uncertain. He states that he would not have come to the ED if not for his fiance, who thought it needed emergency care. Allergies Allergy/AdvReac Type Severity Reaction Status Date / Time shellfish derived Allergy Severe Hives Verified 07/03/24 23:23 amoxicillin Allergy Unknown Unverified 07/03/24 12:24 Fish Containing Products Allergy Verified 07/04/24 10:06 fish derived Allergy Verified 07/04/24 10:06 fish oil Allergy Verified 07/04/24 10:06 Penicillins Allergy Anaphylaxis Unverified 07/03/24 13:12 Home Medications Medication Instructions Recorded Confirmed Type buprenorphine HCl 8 mg sublingual 16 mg sublingual DAILY 07/03/24 07/03/24 History tablet losartan 25 mg tablet 50 mg PO DAILY 07/03/24 07/03/24 History bupropion HCl 150 mg tablet,12 hr 150 mg PO BID 07/05/24 07/05/24 History sustained-release Patient History Medical History Prediabetes Anxiety HTN (hypertension) Surgical History No pertinent past surgical history Family History Mother Breast cancer Social History Smoking Status: Current every day smoker Tobacco Type: Cigarettes Cigarettes Per Day: 1 PPD; Hx Alcohol Use: No Hx Substance Use: No Preferred Language: Chinese Communication Ability: Effective Steeping Press Operator Required: No Beliefs That Will Affect Care: None Current Living Situation: Significant Other Feels Safe at Home: Yes Safety Concerns: Feels Safe At This Time Assistive Devices: Glasses Assistive Devices Comment: Glasses but doesn't wear Review of Systems Review of Systems: All systems reviewed & are unremarkable except as noted in HPI & below Constitutional: + fever, + chills, + body aches and + fa tigue Eyes: no problem reported Ear, Nose, Mouth, Throat: no problem reported Respiratory: no problem reported Cardiovascular: + edema; no problem reported Gastrointestinal: no nausea, no vomiting and no problem reported Musculoskeletal: no problem reported Integumentary: + skin ulcer, + wounds and + erythema Neurologic: + loss of sensation, + numbness and + pa resthesia; no generalized weakness Psychiatric: no problem reported Physical Exam Physical Exam: Lower extremity focused exam: DP/PT pulses nonpalpable. Diffuse edema to b/l LE, worse and more pitting on the right. Erythema noted to right hallux. Plantar neuropathic ulceration noted to the first IPJ of the right hallux. Wound is 1.3cm in diameter and measures 0.9cm deep to the IPJ. No proximal extension noted. Hipolito purulence was able to be expressed. Malodor noted. Constitutional: WD/WN, vitals as above + ill appearing and + obese Eyes: PERRL, conjunctivae normal, anicteric sclerae ENMT: external ear and nose normal, oropharynx normal Neck: trachea midline, no thyromegaly normal visual inspection Respiratory: normal respiratory effort; no respiratory distress Cardiovascular: Rate/Rhythm: regular rate and regular rhythm Chest (Breasts): Chest: normal inspection of chest Gastrointestinal (Abdomen): Inspection/Auscultation: abdomen normal to inspection Percussion/Palpation: + abdomen tender and abdomen soft Musculoskeletal: no cyanosis or clubbing, extremities motor strength 5/5 Head/Neck/Chest: normocephalic and head atraumatic Extremities: extremities normal to inspection Skin: + ulcer, + wound, + skin atrophy, + eryt santy, + hair abnormality and + nails dystrophic; no fistulous tract Trauma: no evidence of skin trauma Neurologic: awake; + abnormal touch/pain/proprioception, + abnormal sensation to monofilament and no focal motor deficits Psychiatric: A+Ox3, euthymic affect Results & Data Vital Signs (Past 12 Hours) Vital Signs Temp Pulse Resp BP Pulse Ox O2 Del Method 07/05/24 07:08 36.5 C 69 18 155/74 H 100 Room Air Diagnostic Findings XR and MRI confirm clinical findings of osteomyelitis; there is lytic destruction locally noted on plain film imaging as well as fluid signal intensity increase on MRI. These, along with clinical exam corroborate underlying bone infection.
--- NOTE | 2024-07-05 11:41 | Ultrasound Report ---
RIGHT LOWER EXTREMITY ARTERIAL DOPPLER ULTRASOUND CLINICAL HISTORY: ? underlying PAD, osteo COMPARISON STUDY: No previous studies for comparison. TECHNIQUE: Bilateral ankle to brachial indices were obtained. Grayscale, color duplex Doppler sonogra phy of the arterial system of the right lower extremity was performed. FINDINGS: The right ankle to brachial index measured 1.65 and the left measured 1.46. These are likel y artifactually elevated. The right toe to brachial index measured 1.11 and the left toe brachial ind ex measured 1.46. Waveforms are within normal limits. No elevated velocities within the right lower e xtremity are present. Plaque was identified. Triphasic waveforms within the right common femoral, sup erficial femoral, popliteal, anterior tibial, posterior tibial and peroneal arteries are noted. There is biphasic flow within the right dorsalis pedis. No vessel occlusion was identified. Prominent righ t inguinal lymph nodes are likely benign. IMPRESSION: 1. Patent right lower extremity vessels. No evidence for a hemodynamically significant stenosis. 2. Artifactually elevated ankle to brachial indices, as described above. ACT 112: Negative or not required by law. Electronically signed by: Romario Orr M.D. 07/05/2024 11:38 AM
--- NOTE | 2024-07-05 15:23 | Hospitalist Progress Note ---
Date of Service July 05, 2024 Assessment & Plan (1) Skin ulcer of right great toe: (2) Cellulitis of right foot: Plan: This is a 34 year old male with PMH HTN, anxiety, obesity, prediabetes, tobacco use presented to ER with c/o worsening right foot and leg redness and edema with right great toe ulcer and found to have acute osteomyelitis of distal phalynx. Wound present for months and following outpatient wound and getting debridement. 06/24/2024 started on clindamycin secondary to foot swelling and redness MRI R foot/toe revealing acute osteomyelitis of the first distal phalanx and reactive osteitis in the first proximal phalanx Wound culture prelim growing group B beta strep, gram negative bacilli Preliminary blood culture without growth to date Patient with PCN allergy with anaphylaxis - continued on aztreonam, flagyl, Dapto Pain control with Tylenol for now. Will avoid narcotic pain medications with h/o substance abuse in past Discussed importance of smoking cessation to improve wound healing - currently on nicotine patch RLE Arterial doppler shows patent RLE vessels, no evidence for a hemodynamically significant stenosis Dr. Mckee (podiatry) evaluated - "R foot osteomyelitis noted clinically and radiographically. Wound debrided lightly to bone. Would benefit most from amputation of toe at MTPJ. Patient is opposed. Could try 2 months of IV antibiotics, pending ID consult. Will continue to follow." Wound nurse consult ID consulted Consider picc placement tomorrow once blood culture results (need to verify h/o ivdu with patient - none per chart review) CBC, BMP in am (3) Anxiety: Plan: Previously Prescribed clonidine to use on a as needed basis for anxiety. 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 Goyal. See addendum I spent a total of 55 minutes reviewing notes, outpatient records, labs, medication, coordinating, documenting and providing care for this patient excluding time spent in the performance of separately billed services. Admission and Anticipated Discharge Date Admission Date: July 03, 2024 Supervising Physician Co-Signing Physician Notes patient was not seen personally, patient noted to be stable with no new issues, awaiting podiatry eval. Awaiting ID eval. Subjective Patient seen and examined in 360-1. Extensive discussion with patient and his at bedside regarding atrial duplex results and plans for R toe osteo. Very anxious about all aspects of care. Per discussion with podiatry, opting against surgery at this time and knows he will require IV abx. Arterial duplex of RLE reassuring. Discussed importance of smoking cessation and healthy eating to allow for best healing. No acute events overnight. No F/C, CP, SOB, N/V, abd pain, dysuria, diarrhea or constipation. Review of Systems Review of Systems: At least ten systems reviewed and negative except as noted in the HPI. Physical Exam Physical Exam: General Appearance: WD/WN, vitals as above, NAD, sitting at side of bed, pleasant, conversing easily Head: normocephalic, atraumatic Eyes: normal inspection ENT: external ear and nose normal Neck: normal visual inspection Respiratory: normal respiratory effort, lungs clear to auscultation, no wheeze, rales, rhonchi. No accessory muscle use Cardiovascular: regular rate, rhythm, no murmur, normal peripheral pulses, no BLE edema. Vessels: no JVD Abdomen/GI: normal bowel sounds, soft, nontender, no hepatosplenomegaly Extremities/Musculoskeletal: no cyanosis or clubbing, extremities motor strength 5/5. Bilateral great toes with dressing in place, c/d/i. Non-tender Neurologic: PERRL, CN's II-XI intact bilaterally and moves all extremities Psychiatric: A+Ox3, anxious Skin: no rashes, normal color, warm/dry Results & Data Results & Data Vital Signs (Past 12 Hours) Vital Signs Temp Pulse Resp BP Pulse Ox O2 Del Method 07/05/24 15:14 36.7 C 84 18 144/92 H 96 Room Air 07/05/24 07:08 36.5 C 69 18 155/74 H 100 Room Air Laboratory Results Short CBC 07/05/24 07/05/24 Range/Units 06:51 07:52 WBC Cancelled 8.61 Hgb Cancelled 13.5 L Hct Cancelled 40.4 L Plt Count Cancelled 263 BMP 07/05/24 07/05/24 06:51 07:52 Sodium TNP 136 Potassium TNP 4.1 Chloride 106 Carbon Dioxide 27 BUN 14 Creatinine 0.59 L Glucose 87 Calcium 9.0 Cardiac Enzymes 07/05/24 Range/Units 06:51 Total Creatine Kinase 70 (30-223) U/L Diagnostic Findings Foot X-Ray 07/03/24 10:15 XR foot RT min 3V routine CLINICAL HISTORY: Right foot infection. COMPARISON: None FINDINGS: A wound along the plantar aspect of the base of the right first distal phalanx is noted. Right first toe soft tissue swelling is present. No clear bony erosion is identified. There are no fractures within the right foot. There are mild degenerative changes within the right first metatarsophalangeal joint. Plantar heel spur is incidentally noted. IMPRESSION: Right first toe plantar wound. No bony erosion to suggest acute osteomyelitis by radiography. If indicated, MRI could be obtained for further evaluation. ACT 112: Negative or not required by law. Electronically signed by: Romario Orr M.D. 07/03/2024 10:46 AM Foot MRI 07/03/24 13:51 Exam(s): MRI RIGHT FOOT W/WO Contrast IV Amt: 14mL Gadavist given existing IV EXAM: MR Right Lower Extremity Without and With Intravenous Contrast, Foot CLINICAL HISTORY: Reason for exam: Right great toe ulcer r/o osteomyelitis. TECHNIQUE: Multiplanar magnetic resonance images of the right foot without and with intravenous contrast. CONTRAST: Patient received 14mL Gadavist given existing IV of IV contrast COMPARISON: No relevant prior studies available. FINDINGS: Ulcer subjacent to the first IP joint. Abnormal marrow signal within the first proximal and distal phalanges. Marrow fat is preserved within the proximal phalanx but suppressed in the distal phalanx. 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 Soft tissue cellulitis. No soft tissue abscess. IMPRESSION: 1. Ulcer subjacent to the first IP joint. Acute osteomyelitis of the first distal phalanx and reactive osteitis in the first proximal phalanx. Electronically signed by: Blaine Paredes MD 07/03/24 21:16 PM Duplex Scan Lower Extremity Artery 07/05/24 00:00 RIGHT LOWER EXTREMITY ARTERIAL DOPPLER ULTRASOUND CLINICAL HISTORY: ? underlying PAD, osteo COMPARISON STUDY: No previous studies for comparison. TECHNIQUE: Bilateral ankle to brachial indices were obtained. Grayscale, color duplex Doppler sonography of the arterial system of the right lower extremity was performed. FINDINGS: The right ankle to brachial index measured 1.65 and the left measured 1.46. These are likely artifactually elevated. The right toe to brachial index measured 1.11 and the left toe brachial index measured 1.46. Waveforms are within normal limits. No elevated velocities within the right lower extremity are present. Plaque was identified. Triphasic waveforms within the right common femoral, superficial femoral, popliteal, anterior tibial, posterior tibial and peroneal arteries are noted. There is biphasic flow within the right dorsalis pedis. No vessel occlusion was identified. Prominent right inguinal lymph nodes are likely benign. IMPRESSION: 1. Patent right lower extremity vessels. No evidence for a hemodynamically significant stenosis. 2. Artifactually elevated ankle to brachial indices, as described above. ACT 112: Negative or not required by law. Electronically signed by: Romario Orr M.D. 07/05/2024 11:38 AM
[2024-07-05] MEDS: buPROPion SR 150 MG TABCR PO SCH (22:43)
[2024-07-06 09:06] LABS: Hematocrit (blood only) 39.2 % (42.0-52.0); Hemoglobin 13.6 g/dl (14.0-18.0); Mean Corpuscular Hemoglobin 30.2 pg (25.0-34.0); Mean Corpuscular Hgb Conc 34.7 g/dL (32.0-36.0); Mean Corpuscular Volume 87.1 fL (80.0-100.0); Mean Platelet Volume 9.7 fL (9.4-12.4); Platelet Count 277 K/uL (130-400); RDW Coefficient of Variation 12.2 % (11.5-14.5); White Blood Count 8.07 K/ul (4.8-10.8)
[2024-07-06 09:13] LABS: BUN Creatinine Ratio 20.3 (10-20); Calcium 9.1 mg/dl (8.6-10.3); Creatinine Clr Calc Pharmacy 238.4 ml/min; Potassium 4.3 mmol/L (3.5-5.1)
--- NOTE | 2024-07-06 10:04 | Hospitalist Progress Note ---
Date of Service July 06, 2024 Assessment & Plan (1) Skin ulcer of right great toe: (2) Cellulitis of right foot: Plan: This is a 34 year old male with PMH HTN, anxiety, obesity, prediabetes, tobacco use presented to ER with c/o worsening right foot and leg redness and edema with right great toe ulcer and found to have acute osteomyelitis of distal phalanx on 07/03. Wound present for months and following outpatient wound and getting debridement. 06/24/2024 started on clindamycin secondary to foot swelling and redness MRI R foot/toe revealing acute osteomyelitis of the first distal phalanx and reactive osteitis in the first proximal phalanx Wound culture prelim growing group B beta strep, gram negative bacilli Preliminary blood culture without growth to date Patient with PCN allergy with anaphylaxis - continued on aztreonam, flagyl, Dapto Pain control with Tylenol for now. Will avoid narcotic pain medications with h/o substance abuse in past Discussed importance of smoking cessation to improve wound healing - currently on nicotine patch RLE Arterial doppler shows patent RLE vessels, no evidence for a hemodynamically significant stenosis Dr. Mckee (podiatry) evaluated - "R foot osteomyelitis noted clinically and radiographically. Wound debrided lightly to bone. Would benefit most from amputation of toe at MTPJ. Patient is opposed. Could try 2 months of IV antibiotics, pending ID consult. Will continue to follow." Wound nurse consult and ID consulted Pt will need PICC vs Midline and antibiotics set up once infectious disease consult done (3) Anxiety: Plan: Previously Prescribed clonidine to use on a as needed basis for anxiety. 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 Goyal. See addendum I spent a total of 51 minutes reviewing notes, outpatient records, labs, medication, coordinating, documenting and providing care for this patient excluding time spent in the performance of separately billed services. Admission and Anticipated Discharge Date Admission Date: July 03, 2024 Supervising Physician Co-Signing Physician Notes patient was not seen personally, patient noted to be stable with no new issues, Podiatry following. Awaiting ID eval. Pending cx results finalization. Subjective Pt was seen and examined in room 360-1. F/U R great toe OM. Pt expressed frustration and wanting to be discharged home. He states each day he is told it will be tomorrow and nothing gets done. He is not getting any sleep due to being interrupted. He has a good appetite. He denies f/c/s, chest pain, sob, n/v/d. Review of Systems Review of Systems: All systems reviewed & are unremarkable except as noted in HPI & below Physical Exam Physical Exam: Gen: WD/WN, NAD, A&O x3 HEENT: Normocephalic, atraumatic, conjunctivae moist, sclerae anicteric, mucous membranes moist. Lung: Clear to Auscultation bilaterally, no wheezes/rales/rhonchi Heart: Regular rate, regular rhythm, no murmurs, rubs, or gallops Abdomen: Soft, NT, ND +BS x 4 Extremities: No edema, b/l great toe dressings, cdi Skin: Warm, no rash, negative turgor. Results & Data Results & Data Vital Signs (Past 12 Hours) Vital Signs Temp Pulse Resp BP Pulse Ox O2 Del Method 07/06/24 07:07 36.6 C 75 18 159/77 H 96 Room Air Laboratory Results Short CBC 07/06/24 Range/Units 08:26 WBC 8.07 (4.8-10.8) K/ul Hgb 13.6 L (14.0-18.0) g/dl Hct 39.2 L (42.0-52.0) % Plt Count 277 (130-400) K/uL BMP 07/06/24 08:26 Sodium 139 Potassium 4.3 Chloride 103 Carbon Dioxide 31 BUN 15 Creatinine 0.74 Glucose 117 H Calcium 9.1 Medications Administered Current Inpatient Medications Acetaminophen (Acetaminophen 325 Mg Tab) 650 mg PO Q4H PRN PRN Reason: pain/fever Stop: 08/02/24 19:17 Buprenorphine HCl (Buprenorphine Hcl 8 Mg Subl) 8 mg SL BID [facility] Stop: 08/02/24 20:59 Last Admin: 07/05/24 21:13 Dose: 8 mg Bupropion HCl (Bupropion Sr 150 Mg Tabcr) 150 mg PO BID [facility] Stop: 08/04/24 21:59 Last Admin: 07/06/24 09:52 Dose: 150 mg Aztreonam 2,000 mg/ Dextrose 100 mls @ 100 mls/hr IV Q8H [facility] Stop: 07/10/24 19:59 Last Infusion: 07/06/24 01:55 Dose: Infused Daptomycin 700 mg/ Syringe 14 mls @ 7 mls/min IV DAILY@1400 [facility]; Protocol Stop: 08/15/24 12:44 Last Admin: 07/05/24 13:59 Dose: 7 mls/min Lactobacillus Acidophilus (Advanced Probiotic 625 Mg Capsule) 1,250 mg PO DAILY [facility] Stop: 08/03/24 08:59 Last Admin: 07/06/24 09:53 Dose: 1,250 mg Losartan Potassium (Losartan Potassium 50 Mg Tab) 50 mg PO DAILY [facility] Stop: 08/03/24 08:59 Last Admin: 07/06/24 09:53 Dose: 50 mg Metronidazole (Metronidazole 500 Mg Tab) 500 mg PO BID [facility]; Protocol Stop: 07/10/24 20:59 Last Admin: 07/06/24 09:53 Dose: 500 mg Miscellaneous (Remove Nicoderm Patch) 1 each N/A DAILY@0859 [facility] Stop: 08/03/24 08:58 Last Admin: 07/06/24 09:50 Dose: 1 each Nicotine (Nicotine 21 Mg/24 Hr Tdsy) 1 patch TD QAM [facility] Stop: 08/02/24 13:59 Last Admin: 07/06/24 09:53 Dose: 1 patch Ondansetron HCl (Ondansetron Inj 2 Mg/Ml 2 Ml Vial) 4 mg IV Q6H PRN PRN Reason: Nausea Stop: 08/02/24 19:17 Polyethylene Glycol (Polyethylene (Miralax) 17 Gm Pack) 17 gm PO DAILY PRN PRN Reason: Constipation Stop: 08/02/24 19:17 (1) Skin ulcer of right great toe Non-pressure ulcer stage: with necrosis of bone Qualified Code(s): L97.514 - Non-pressure chronic ulcer of other part of right foot with necrosis of bone
--- NOTE | 2024-07-06 17:42 | Infectious Disease Consult ---
Date of Service July 06, 2024 Telehealth Information I performed this visit using a real-time telehealth connection between my location and the patients location ([facility]). After connecting through interactive tele-video, patient was identified by name and date of and/or wristband check.Patient (or authorized healthcare guest services representative) was informed that this was a telemedicine visit and it was being conducted confidentially over secure lines. My office door was closed and no o ne else was present in the room with me.Patient (or authorized healthcare guest services representative) provided consent to proceed with the visit, expressed an understanding of privacy and security of the telemedicine visit, and gave permission to have a hospital guest services representative in the room in order to assist with the visit and to conduct portions of the visit, as needed. I informed the patient (or authorized healthcare guest services representative) that I reviewed their record and presented the opportunity for them to ask any questions regarding the visit today. The patient agreed to participate. Assessment & Plan (1) Osteomyelitis of foot, right, acute: Plan: Assessment: Diabetic foot infection w/ OM of R 5th distal phalanx Hx of obesity, smoking Hx of allergy to amoxicillin, PCN (anaphylaxis) 07/03/24 minimal bedside debridement of the R foot Plan: - F/u wound culture for the GNR - Stop aztreonam, metronidazole and daptomycin iv - Start ceftriaxone 2 gm iv qd - The chance of treatment failure is relatively high without amputation but I am not against a long-term abx therapy if the patient refuses amputation - We need the ID of the GNR for final recommendation. - Anticipate total 6 weeks of abx therapy w/ close f/u - F/u w/ ID outpatient clinic w/in a month - Final rec to follow after the ID and susceptibility of the GNR. If the result is not out by tomorrow, we can consider discharging the patient on ceftriaxone but the GNR ID needs to be followed as outpatient in case the abx needs to be adjusted. - If he get discharged on CTX: needs weekly CBC w/ diff and CMP and every other week CRP while on abx therapy. I am not concerned about using ceftriaxone as ceftriaxone does not share the same R1 side chain as PCN or PCN derivatives: cross-reactivity less likely despite hx of anaphylaxis w/ PCN. I spent a total of 60 minutes coordinating, documenting, and providing care for this patient excluding time spent in the performance of separately billed services or time spent by another provider/QHP. History of Present Illness History of Present Illness This is a 34 y/o obese male ([place]) w/ hx of HTN, anxiety, preDM, and smoking, who prsesnted to ED for worsening R foot redness, swelling, warmth, mild pain, w/ R great toe ulcer. He has been followed by wound care as outpatient (debrided callous) about 3 weeks ago) and was started on clindamycin on 06/24/24 w/ no improvement. No fever. Found ot have OM of R 1st distal phalanx. Patient refused toe amputation. Had bedside debridement on 07/03/24: wound culture showing GBS and GNR. He feels well overall now. Denies any pain, n/v, abd pain, diarrhea, coughing, cp, sob, f/c, or urinary symptoms. The redenss receded from bottom of R leg to forefoot. Allergies Allergy/AdvReac Type Severity Reaction Status Date / Time shellfish derived Allergy Severe Hives Verified 07/03/24 23:23 amoxicillin Allergy Unknown Unverified 07/03/24 12:24 Fish Containing Products Allergy Verified 07/04/24 10:06 fish derived Allergy Verified 07/04/24 10:06 fish oil Allergy Verified 07/04/24 10:06 Penicillins Allergy Anaphylaxis Unverified 07/03/24 13:12 Home Medications Medication Instructions Recorded Confirmed Type buprenorphine HCl 8 mg sublingual 16 mg sublingual DAILY 07/03/24 07/03/24 History tablet losartan 25 mg tablet 50 mg PO DAILY 07/03/24 07/03/24 History bupropion HCl 150 mg tablet,12 hr 150 mg PO BID 07/05/24 07/05/24 History sustained-release Patient History Medical History Prediabetes Anxiety HTN (hypertension) Surgical History No pertinent past surgical history Family History Mother Breast cancer Social History Smoking Status: Current every day smoker Tobacco Type: Cigarettes Cigarettes Per Day: 1 PPD; Hx Alcohol Use: No Hx Substance Use: No Preferred Language: Frisian Communication Ability: Effective Senior Electronics Technician Required: No Beliefs That Will Affect Care: None Current Living Situation: Significant Other Feels Safe at Home: Yes Safety Concerns: Feels Safe At This Time Assistive Devices: None Assistive Devices Comment: Glasses but doesn't wear Review of Systems as HPI Physical Exam no acute distress breathing comfortably on room air faint erythema localized around the forefoot on R MT area, no erythema on rest of the foot/ankle/leg Results & Data Vital Signs (Past 12 Hours) Vital Signs Temp Pulse Resp BP Pulse Ox O2 Del Method 07/06/24 16:04 36.7 C 78 18 152/83 H 97 Room Air 07/06/24 07:07 36.6 C 75 18 159/77 H 96 Room Air Laboratory Results WBC 12.93K ->-> 8.07K H 13.6 Plt 277K Cr 0.7 CRP 0.79 R great toe (07/03): GBS (S to amp, cefep, ctx, pcn, vanco), GNB Blood cx (07/03): NGTD MRI: Ulcer subjacent to the first IP joint. Acute osteomyelitis of the first distal phalanx and reactive osteitis in the first proximal phalanx. Medications Administered Aztreonam, vancomycin iv and metronidazole
[2024-07-06] MEDS: cefTRIAXone SODIUM 2,000 MG/50 ML BAG IV SCH (18:51)
[2024-07-06 19:43] VITALS: RESP 16
--- NOTE | 2024-07-06 21:13 | Podiatry Progress Note ---
Date of Service July 06, 2024 Assessment & Plan (1) Cellulitis of right foot: (2) Skin ulcer of right great toe: (3) Chronic ulcer of left foot with necrosis of bone: (4) Osteomyelitis of foot, right, acute: Plan - Patient examined and evaluated. - Discussed that the options for this wound and bone infection include 6-8 weeks of IV antibiotics versus hallux amputation - Patient is adamant he wants to fail conservative treatment prior to surgical resection. - ID consult pending, but likely later today. - Can d/c home once this plan is in place. Will f/u in my office within one week and at [facility] within 1-2 weeks for wound care, as well. - Over next few weeks, will defer most care to wound care, but will stay involved if surgical intervention required. - Pt amenable to this and will f/u accordingly. Admission and Anticipated Discharge Date Admission Date: July 03, 2024 Subjective Seen at bedside. Ambulating in room with slippers, wound dressings intact. No new concerns. Ready for discharge, stating he will follow-up as instructed. Feeling good with current antibiotics and wound care. Review of Systems Constitutional: + fever, + chills, + body aches and + fa tigue Eyes: no problem reported Ear, Nose, Mouth, Throat: no problem reported Respiratory: no problem reported Cardiovascular: + edema; no problem reported Gastrointestinal: no nausea, no vomiting and no problem reported Musculoskeletal: no problem reported Integumentary: + skin ulcer, + wounds and + erythema Neurologic: + loss of sensation, + numbness and + pa resthesia; no generalized weakness Psychiatric: no problem reported Physical Exam Physical Exam: Lower extremity focused exam: DP/PT pulses nonpalpable. Diffuse edema to b/l LE, worse and more pitting on the right. Erythema noted to right hallux. Plantar neuropathic ulceration noted to the first IPJ of the right hallux. Wound is 1.3cm in diameter and measures 0.9cm deep to the IPJ. No proximal extension noted. Hipolito purulence was able to be expressed. Malodor noted. Constitutional: WD/WN, vitals as above + ill appearing and + obese Eyes: PERRL, conjunctivae normal, anicteric sclerae ENMT: external ear and nose normal, oropharynx normal Neck: trachea midline, no thyromegaly normal visual inspection Respiratory: normal respiratory effort; no respiratory distress Cardiovascular: Rate/Rhythm: regular rate and regular rhythm Chest (Breasts): Chest: normal inspection of chest Gastrointestinal (Abdomen): Inspection/Auscultation: abdomen normal to inspection Percussion/Palpation: + abdomen tender and abdomen soft Musculoskeletal: no cyanosis or clubbing, extremities motor strength 5/5 Head/Neck/Chest: normocephalic and head atraumatic Extremities: extremities normal to inspection Skin: + ulcer, + wound, + skin atrophy, + eryt santy, + hair abnormality and + nails dystrophic; no fistulous tract Trauma: no evidence of skin trauma Neurologic: awake; + abnormal touch/pain/proprioception, + abnormal sensation to monofilament and no focal motor deficits Psychiatric: A+Ox3, euthymic affect Results & Data Results & Data Vital Signs (Past 12 Hours) Vital Signs Temp Pulse Resp BP BP Pulse Ox O2 Del Method 07/06/24 19:42 36.5 C 74 16 145/80 H 100 Room Air 07/06/24 16:04 36.7 C 78 18 152/83 H 97 Room Air (2) Skin ulcer of right great toe Non-pressure ulcer stage: with necrosis of bone Qualified Code(s): L97.514 - Non-pressure chronic ulcer of other part of right foot with necrosis of bone
[2024-07-07 07:28] VITALS: BP 145/91; PULSE 78; TEMP 97.9; O2SAT 98
--- NOTE | 2024-07-07 07:54 | Infectious Disease Progress Nt ---
Date of Service July 07, 2024 Telehealth Information This is a non-billable note. Assessment & Plan (1) Osteomyelitis of foot, right, acute: Plan: Based on the susceptibility of the Alcaligenes faecalis, switch ceftriaxone to cefepime 2 gm iv q8 hours. Rest of the ID recommendation remains the same. ID signing off. Results & Data Vital Signs (Past 12 Hours) Vital Signs Temp Pulse Resp BP Pulse Ox O2 Del Method 07/07/24 07:26 36.6 C 78 16 145/91 H 98 Room Air
[2024-07-07] MEDS: LORazepam 0.5 MG TAB PO PRN (10:49)
--- NOTE | 2024-07-07 12:22 | XRay Report ---
XR chest 1V portable CLINICAL HISTORY: post PICC Placement TECHNIQUE: Single frontal radiograph of the chest was obtained. Comparison: None available at the time of this dictation. FINDINGS: PICC terminates in the lower SVC. The cardiomediastinal silhouette is normal. The lungs are clear. No evidence of pleural effusion or pneumothorax. IMPRESSION: PICC is in satisfactory position in the lower SVC. ACT 112: Negative or not required by law. Electronically signed by: Romulo Hermosillo M.D. 07/07/2024 12:21 PM
[2024-07-07] MEDS: LORazepam 1 MG TAB PO STA (13:16)
--- NOTE | 2024-07-07 14:00 | Discharge Summary ---
Discharge Summary Date of Service July 07, 2024 Principal Dx & Hospital Course #1 = Principal Diagnosis (1) Osteomyelitis of foot, right, acute: (2) Skin ulcer of right great toe: (3) Cellulitis of right foot: (4) Anxiety: (5) HTN (hypertension): (6) Prediabetes: (7) History of substance abuse: (8) Tobacco use: Plan This is a 34 year old male with PMH HTN, anxiety, obesity, prediabetes, tobacco use presented to ER with c/o worsening right foot and leg redness and edema with right great toe ulcer and found to have acute osteomyelitis of distal phalanx on 07/03. Wound present for months and following outpatient wound and getting debridement. 06/24/2024 started on clindamycin secondary to foot swelling and redness. He underwent MRI R foot/toe revealing acute osteomyelitis of the first distal phalanx and reactive osteitis in the first proximal phalanx. Wound culture grew Group B Step and Alcaligenes Faecalis. He was seen and evaluated by infectious disease and podiatry. It was recommended he undergo hallux ampu tation; however pt wishes to pursue conservative measures with IV antibiotics. It was recommended a PICC Line be placed and he receive IV ceftriaxone 2g once daily for 6 weeks through 08/17/24. He would need to continue daily wound care with aquacel ag and conform to be changed daily. Home health and IV infusion therapy was set up for patient to discharge home. It was discussed importance of smoking cessation to improve wound healing for which he was placed on a nicotine patch while in pt. He did have a RLE Arterial Doppler shows patent RLE vessels, no evidence for a hemodynamically significant stenosis. He was seen by Dr. Mckee (podiatry) and underwent bedside debridement. During hospital stay pt did endorse anxiety which he was encouraged to follow up with PCP and establish with outpatient counseling services. It is recommend pt be seen by orthotics to obtain proper fitted offloading shoes to assist in wound healing. On day of discharge pt was anxious due to have PICC placed. He was also anxious regarding home nursing and if they were qualified. His vitals were stable and he was tolerating diet and antibiotic therapy. Notes For Next Care Provider Please ensure pt follows up with infectious disease, podiatry and wound care. Please ensure weekly labs cbc, cmp, esr, crp are followed. Pt requesting assistance with anxiety management. A1C 6.0. Encourage lifestyle, diet modifications to improve wound healing. Pt Blood pressure elevated during hospital stay, suspect anxiety related. Please monitor. Pt needs orthotic referral for properly fitted shoes. Medication Changes From Visit IV Ceftriaxone 2g daily for total of 6 weeks. This will finish on 08/17/24. Please take a daily probiotic while on your antibotic therapy. Continue your outpatient medication regimen. Admission HPI Per Admitting Provider Patient is a 34 year old male with PMH HTN, anxiety, obesity, prediabetes, tobacco use presented to ER with c/o right foot redness and edema. History obtained from patient and outpatient chart review. Patient reports had bilateral great toe callus for months and has been following with [facility] wound care and having areas debrided. Patient reports right great toe had small opening which has progressed to ulcer. Per outpatient chart review last seen by wound care on 06/17/2024 and had wounds debrided. X-ray at time was without evidence of osteomyelitis and MRI of right foot was ordered to rule out osteomyelitis however has not been completed yet. Patient seen PCPs office 06/24/2024 for redness to right toe and foot and was started on clindamycin 300 mg 3 times daily x 10 days. Patient reports that this week has had increased edema to right foot and right leg along with redness extending to right calf. Reports area is tender with walking. Works third shift and states is on his feet often. He thinks a couple of weeks ago may have had a fever but denies any fever or chills symptoms the past week. Denies diaphoresis, N/V/D/C, FOSTER, dizziness, syncope, CP, SOB, palpitations, cough, sore throat, rhinorrhea, abdominal pain, paresthesias, weakness, extremity edema, rashes, urinary symptoms. Discharge Exam Gen: WD/WN, NAD, A&O x3 HEENT: Normocephalic, atraumatic, conjunctivae moist, sclerae anicteric, mucous membranes moist. Lung: Clear to Auscultation bilaterally, no wheezes/rales/rhonchi Heart: Regular rate, regular rhythm, no murmurs, rubs, or gallops Abdomen: Soft, NT, ND +BS x 4 Extremities: No edema, b/l great toe dressings, cdi Skin: Warm, no rash, negative turgor. Updated Medication List Medication Instructions Recorded Confirmed Type buprenorphine HCl 8 mg sublingual 16 mg sublingual DAILY 07/03/24 07/03/24 History tablet losartan 25 mg tablet 50 mg PO DAILY 07/03/24 07/03/24 History bupropion HCl 150 mg tablet,12 hr 150 mg PO BID 07/05/24 07/05/24 History sustained-release L.acidop,casei,lactis,rham-B.lact,martha 1 cap PO DAILY #45 caps 07/07/24 Rx 625 mg (10 billion cell) capsule (Advanced Probiotic) ceftriaxone 2 gram intravenous 2 g IV DAILY 07/07/24 Rx solution Hospital Stay Data Consultations 07/03/24 13:05 ED Decision to Admit Stat 07/03/24 22:23 Consult Infectious Diseases Routine Consult Podiatry Routine Diagnostic Imagining Performed 07/03/24 13:51 MR foot RT wo/w con Routine 07/05/24 US arterial duplex LE RT Routine Pending Results Patient Have Any Pending Studies at Discharge: No Discharge Instructions Given to Patient (Per Discharging Provider) MEDICATION CHANGES: IV Ceftriaxone 2g daily for total of 6 weeks. This will finish on 08/17/24. Please take a daily probiotic while on your antibotic therapy. Continue your outpatient medication regimen. SUMMARY OF TEST RESULTS: You were hospitalized due to infection of your R great toe. You were found to have a wound and infection to the bone of your great toe. You were seen by infectious disease and podiatry who recommended amputation of the R great toe. They were agreeable to a trial of IV antibiotics for 6 weeks and close outpatient follow up with wound care, podiatry and Infectious Disease. PENDING TEST RESULTS: None RECOMMENDATIONS FOR FOLLOW-UP: Wound care instructions as follows: Clean and dry wound on the Right great toe. Apply Aquacel ag and conform to be changed daily. Left toe may be open to air. Please follow up with infectious disease, podiatry and wound care as outpatient. Please wear proper footwear to offload your wounds to prevent further breakdown. Please complete antibiotic treatment as instructed. You will be getting lab work every week to follow your blood counts, electrolytes and kidney function while on antibiotics. These results will be faxed to your primary care provider. It is recommended that you obtain proper footwear to aide in wound healing. Please ask your [employer] Supervisor to refer you to orthotics. Please follow up with your PCP regarding trial of another anti anxiety medication. OTHER INSTRUCTIONS: Seek medical attention if you have: * temperature above 101 * chest pain or trouble breathing * abdominal pain, nausea, vomiting * diarrhea, dark stools or bloody stools * any unanswered questions or concerns Call 911 if symptoms are severe. Please take good care of yourself. It has been a pleasure taking care of you. Please take care of yourself. If you have any questions regarding your recent hospitalization please contact [facility] and request Betty Marinist @ [phone]. Total Time Total Time Spent Total Time Spent (In Minutes): 35 minutes Supervising Physician Co-Signing Physician Notes Patient was seen and examined at bedside as a follow-up of osteomyelitis of foot, right, acute. Infectious disease evaluated, recommends ceftriaxone for 6- week, recommends follow-up with infectious disease in about 1 month time. Patient has been communicated plan of care in detail, patient's at bedside. Patient is aware that he needs to follow-up with infectious disease in about a month time before the antibiotic course is done. Patient is also aware that he needs to follow-up with podiatry as an outpatient. On examination: Bilateral great toe with dressings, CDI. Rest of the examination as above. I have seen and examined the patient and have discussed the case with the vidal leo above. I agree with the assessment and plan as stated. Time spent: 15 min.
[2024-07-07] MEDS: cefTRIAXone SODIUM 2,000 MG/50 ML BAG IV SCH (14:34)
[2024-07-07] MEDS ORDERED: cefTRIAXone SODIUM 2,000 MG/50 ML BAG IV SCH (18:00)
== END 2024-07-07 15:38 | disposition home health service (06) | DRG 593 ==
LOC: ED 09:16 → 3W 13:27 → SUATTDRO 13:27 → 3W 17:27